=== PATIENT | female | born 1975 | race Caucasian/White ===

== ENCOUNTER → 2017-11-26 10:09 | Outpatient (CLI) | payer OTHER, SELFPAY ==
[2017-11-26 11:46] LABS: TSH w/ Reflex to FT4 0.97 uIU/mL (0.47-4.68)
== END ==
PROVIDERS: Family Provider Family Medicine; PCP Family Medicine; Visit Provider Family Medicine
DX: E03.9 Hypothyroidism, unspecified (principal)
CPT/HCPCS: 36415; 84443

== ENCOUNTER → 2018-06-09 14:20 | Outpatient (CLI) | payer OTHER, MEDICAID, SELFPAY ==
[2018-06-09 15:30] LABS: Free T3, Triiodothyronine Free 2.93 pg/mL (2.77-5.27); Free T4, Direct Thyroxine 0.57 ng/dL (0.78-2.19)
== END ==
PROVIDERS: PCP Family Medicine; Visit Provider Family Medicine
DX: E03.9 Hypothyroidism, unspecified (principal)
CPT/HCPCS: 36415; 84439; 84443; 84481

== ENCOUNTER → 2018-08-08 15:53 | Outpatient (CLI) | payer OTHER, MEDICAID, SELFPAY ==
[2018-08-08 17:27] LABS: TSH w/ Reflex to FT4 1.52 uIU/mL (0.47-4.68)
[2018-08-08 17:44] LABS: HIV 1 and 2 Antibody NEGATIVE (NEGATIVE); Hep C Virus Ab w/Reflex Quant NEGATIVE s/c (NEGATIVE)
[2018-08-11 14:30] LABS: RPR Screen Nonreactive (Nonreactive)
[2018-08-12 16:21] LABS: Hepatitis B Surf Ab Qualitativ Nonreactive (Nonreactive)
== END ==
PROVIDERS: PCP Family Medicine; Visit Provider Specialist
DX: Z20.2 Contact with and (suspected) exposure to infections with a predominantly sexual mode of transmission (principal); E03.9 Hypothyroidism, unspecified
CPT/HCPCS: 36415; 84443; 86592; 86703; 86706; 86803

== ENCOUNTER → 2018-09-02 12:13 | Outpatient (CLI) | payer OTHER, MEDICAID, SELFPAY ==
--- NOTE | 2018-09-02 12:14 | DI.MG.S_ITS ---
BILATERAL DIGITAL SCREENING MAMMOGRAM 3D/2D WITH CAD: 09/02/2018 CLINICAL: Routine screening. Family history of breast cancer. Comparison is made to exams dated: 12/29/2015 mammogram, 07/05/2015 mammogram, 12/28/2014 mammogram, and 06/18/2014 mammogram - [facility]. The tissue of both breasts is extremely dense, which lowers the sensitivity of mammography. Current study was also evaluated with a Computer Aided Detection (CAD) system. There are benign calcifications in both breasts. No significant masses, calcifications, or other findings are seen in either breast. There has been no significant interval change. IMPRESSION: There is no mammographic evidence of malignancy. A 1 year screening mammogram is recommended. This exam was interpreted at Station ID: [id number]. NOTE: For mammograms, a report in lay terms will be sent to the patient. Approximately 15% of breast malignancies will not be visualized mammographically. In the management of a palpable breast mass, a negative mammogram must not discourage biopsy of a clinically suspicious lesion. Electronically Signed By: Magdiel gordon/michele:09/02/2018 17:34:12 copy to: César Mercado letter sent: Normal Exam ACR BI-RADS Category 2: Benign Finding(s) [id number]
== END ==
PROVIDERS: PCP Family Medicine; Visit Provider Specialist
DX: Z12.31 Encounter for screening mammogram for malignant neoplasm of breast (principal); Z80.3 Family history of malignant neoplasm of breast
CPT/HCPCS: 77063; 77067

== ENCOUNTER 2018-11-27 09:45 | Outpatient (RCR) | payer OTHER, MEDICAID, SELFPAY ==
--- NOTE | 2018-08-21 14:30 | PT.OIE ---
Current Diagnoses Fibromyalgia (08/21/18) Past Medical History (Last Reviewed 06/12/18 @ 11:17 by Jackie Yancey LPN) Acne (Chronic) Anemia (Chronic) Anxiety (Chronic) Depression (Chronic) Fibromyalgia (Chronic ~2004) GERD (gastroesophageal reflux disease) (Chronic) History of frequent headaches (Chronic) Hypothyroidism (Chronic ~2004) IBS (irritable bowel syndrome) (Chronic) IUD (intrauterine device) in place (Chronic) Kidney stones (Chronic) Migraines (Chronic ~11/12/14) PTSD (post-traumatic stress disorder) (Chronic) Restless leg syndrome (Chronic) Seizures (Chronic ~1998) Tinnitus (Chronic) Chickenpox (Resolved) Halo nevus (Resolved ~1989) Plantar warts (Resolved) Vertigo (Resolved ~1997) Past Surgical History (Last Reviewed 06/12/18 @ 11:17 by Jackie Yancey LPN) History of fracture of nose (Acute ~1993) Vacuum extractor delivery, delivered (Resolved) Anesthesia (Inactive) History of lithotripsy (~2006) Provider Visit Care Team Role Provider Type César Mercado MD Attending Provider Physician Primary Care Provider Specialty: Family Practice Address: [address] [place] [address] Email: [email or web address] Physical Therapy Initial Evaluation PT-OP-A Visit Information Start: 08/21/18 15:21 Freq: Status: Active Protocol: Document 08/21/18 14:30 RCC (Rec: 08/21/18 15:51 RCC [email or web address]) Out-Patient Physical Therapy Visit Information Visit Information Visit Type Initial Evaluation Visit Start Time 14:30 Visit Stop Time 15:10 Total Visit Minutes 40 Visit Number 1 Number of HELICOPTER REPAIRER Visits 0 Evaluation Information Evaluation Date 08/21/18 Precautions Precautions Fibromyalgia PT-OP-B Current Condition Start: 08/21/18 15:21 Freq: Status: Active Protocol: Document 08/21/18 14:30 RCC (Rec: 08/21/18 15:51 RCC [email or web address]) Current Condition History of Current Condition Onset Date years of chronic pain Current Complaints CAMACHO, neck and low back pain History of Current Condition Pt is a 42 y/o female presenting to physical therapy with a c/o bilateral neck and low back pain as well as a h/ o chronic CAMACHO. She received Botox injections every 3 mos, most recently got them on Saturday08/19/18 with now improved relief of CAMACHO. She has a h/o of a brain injury in 1997, and is now seeing someone for psychological help . She does OMM with Dr. Moore 1x/mo (after getting good improvements over time). 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 Pt notes that she is doing somewhat better after Botox injections, but does admit her pain comes and goes due to her fibromyalgia. She would like to be able to do Qigong again to assist with coordination and relaxation, which she has not had time to do due to home stressors and pain. Treatment Goals Patient/Caregiver Goals return to Qigong, improve posture and decrease pain Personal Factors Other Personal Factors That May Effect h/o brain injury 1997, Therapy/Recovery fibromyalgia, depression, memory loss, back and neck pain (chronic), anxiety, hypothyroidism PT-OP-C Subjective Start: 08/21/18 15:21 Freq: Status: Active Protocol: Document 08/21/18 14:30 RCC (Rec: 08/21/18 15:51 RCC [email or web address]) OP-PT Pain Assessment Location bilateral neck and back Intensity 8 Scale Used Numeric (1 - 10) Frequency Frequent Pain Aggravating Factors Activity Standing Sitting Anxiety Pain Alleviating Factors Position Massage PT-OP-F Manual Assessment Start: 08/21/18 15:21 Freq: Status: Active Protocol: Document 08/21/18 14:30 RCC (Rec: 08/21/18 15:51 RCC [email or web address]) Manual Assessments Soft Tissue Assessment Soft Tissue Mobility Assessment Moderate tension: bilateral lumbosacral paraspinals, QL, lower trapezius, levator and upper trapezius, L scalenes and suboccipitals Joint Mobility Assessment Joint Mobility Assessment C3 hypomobility bilaterally, R >L PT-OP-J Posture/Palpation/Skin Start: 08/21/18 15:21 Freq: Status: Active Protocol: Document 08/21/18 14:30 RCC (Rec: 08/21/18 15:51 RCC [email or web address]) Posture Evaluation Comments Posture Comments severe forward head, moderate rounded shoulders, increased thoracic kyphosis in sitting PT-OP-K Range of Motion Start: 08/21/18 15:21 Freq: Status: Active Protocol: Document 08/21/18 14:30 RCC (Rec: 08/21/18 15:51 RCC [email or web address]) Cervical Spine Range of Motion Cervical Spine Active Degrees Testing Position Sitting Flexion 54 Extension 35 Rotation Left 65 Rotation Right 75 Lateral Flexion Left 25 Lateral Flexion Right 30 ROM Limitations Soft Tissue Tightness Muscle Tone Pain Lumbar Spine Range of Motion Lumbar Spine Active Percentage Comments WNL PT-OP-L Special Tests Start: 08/21/18 15:21 Freq: Status: Active Protocol: Document 08/21/18 14:30 RCC (Rec: 08/21/18 15:51 RCC [email or web address]) Special Tests Cervical Spine Special Tests Slump Test Results increases tension Spurling's Test Test Results positive B Lumbar Spine Special Tests Straight Leg Raise Test Results negative B PT-OP-M Strength Start: 08/21/18 15:21 Freq: Status: Active Protocol: Document 08/21/18 14:30 RCC (Rec: 08/21/18 15:51 RCC [email or web address]) Cervical Spine Strength Cervical Spine Manual Muscle Testing Comments pt able to hold chin tuck with head lift for 8 sec before losing chin tuck position Shoulder Strength Shoulder Manual Muscle Testing Right Flexion 4 Good Abduction (C5) 4+ Good+ External Rotation 3+ Fair+ Internal Rotation 5 Normal Left Flexion 5 Normal Abduction (C5) 4 Good External Rotation 4+ Good+ Internal Rotation 5 Normal Elbow/Forearm Strength Elbow and Forearm Manual Muscle Testing Right Flexion (C6) 5 Normal Extension (C7) 4 Good Left Flexion (C6) 5 Normal Extension (C7) 5 Normal PT-OP-Q Treatments Start: 08/21/18 15:21 Freq: Status: Active Protocol: Document 08/21/18 14:30 RCC (Rec: 08/21/18 15:51 RCC [email or web address]) Therapeutic Exercises Supine Exercises Transverse abdominal activation Side bilateral Reps/Minutes 3x5 sec hold Comments with deep breathing chin tuck Side bilateral Reps/Minutes 3x5 sec hold Comments gentle PT-OP-T Assessment and Plan Start: 08/21/18 15:21 Freq: Status: Active Protocol: Document 08/21/18 14:30 RCC (Rec: 08/21/18 15:51 RCC [email or web address]) Physical Therapy Assessment Rehab Potential Rehabilitation Potential Fair Evaluation Complexity Number of Personal Factors/Comorbidities 3 or More Number of Body Systems Impaired 4 or More Clinical Presentation at Evaluation Evolving Impairments Impairments Activity Tolerance Functional Activities Pain Posture ROM Soft Tissue Mobility Strength Tone Goals cervical spine ROM Impairment decreased cervical spine ROM Snf Goal (LTG) cervical spine ROM flexion to 60 degrees extension to 50 degrees sidebending to 40 degrees bilaterally rotation to 80 degrees bilaterally posture Impairment sitting posture Snf Goal (LTG) Pt will demonstrate proper seated posture with neutral head, shoulders and slight to no thoracic kyphosis for 5 min without cuing prior to d/c to decrease overall cervicothoracic muscle tone. LTG Duration 10 weeks UE weakness Impairment UE weakness Short Term Goal (STG) Pt will demonstrate bilateral shoulder and elbow strength of 4+/5 or greater with all major muscle groups. STG Duration 5 weeks Snf Goal (LTG) Pt will demonstrate bilateral shoulder and elbow strength of 5/5 or greater with all major muscle groups. LTG Duration 10 weeks Recreational activities Impairment unable to participate in recreational activities Short Term Goal (STG) pt will tolerate return to Qigong for 15 min, 3 times per week with pain rated 6/10 or less. STG Duration 5 weeks Slitter Scorer Cut Off Operator Goal (LTG) pt will tolerate return to Qigoan for at least 30 min, 3 times per week with pain rated 4/10 or less prior to d/c. LTG Duration 10 weeks Assessment Summary Assessment Pt presents with multiple areas of pain, with highest degree in the cervical and lumbar spine. Pt demonstrates impaired sitting posture likely contributing to increased muscle tone of the cervicothoracic spine and likely one contributing factor to her headaches. Pt with limited cervical spine ROM as well as bilateral shoulder weaknesses, which also appear to be contributing factors to her increase in pain and difficulty with activity tolerance. Overall, pt would benefit from skilled physical therapy intervention to improve the aforementioned impairments, as well as modalities for pain. Pt also appears to be a good candidate for aquatic therapy to progress her core and postural musculature and stability, and improve overall activity tolerance. Physical Therapy Plan Frequency and Duration Frequency of Treatment 2x/Week Duration of Treatment 10 weeks Plan of Care Start Date 08/21/18 Plan of Care End Date 10/30/18 Therapeutic Interventions Therapeutic Interventions Aquatic Therapy Balance Training Coordination Training Gait Training Home Exercise Program Manual Therapy Neuromuscular Re-education Orthotic/Prosthetic Management Patient/Caregiver Education Self-Care/Home Management Soft Tissue Mobilization Taping Therapeutic Activities Therapeutic Exercises Modalities Cold Pack/Ice Massage Electric Stimulation Hot Packs Ultrasound Next Visit Focus/Plan Next Note Type Treatment Note Next Visit Plan sitting and standing posture, advance core stability in supine/hooklying, scapular retraction; soft tissue for tone management
--- NOTE | 2018-08-27 16:00 | PT.OTN ---
Current Diagnoses Fibromyalgia (08/27/18) Physical Therapy Treatment Note PT-OP-A Visit Information Start: 08/21/18 15:21 Freq: Status: Active Protocol: Document 08/27/18 10:35 BS (Rec: 08/27/18 12:08 BS [id number]) Out-Patient Physical Therapy Visit Information Visit Information Visit Type Treatment Note Visit Start Time 09:45 Visit Stop Time 10:30 Total Visit Minutes 45 Visit Number 2 Number of PRODUCT SAFETY MANAGER Visits 0 Evaluation Information Evaluation Date 08/21/18 Precautions Precautions Fibromyalgia PT-OP-B Current Condition Start: 08/21/18 15:21 Freq: Status: Active Protocol: Document 08/21/18 14:30 RCC (Rec: 08/21/18 15:51 RCC [email or web address]) Current Condition History of Current Condition Onset Date years of chronic pain Current Complaints CAMACHO, neck and low back pain History of Current Condition Pt is a 42 y/o female presenting to physical therapy with a c/o bilateral neck and low back pain as well as a h/ o chronic CAMACHO. She received Botox injections every 3 mos, most recently got them on Saturday08/19/18 with now improved relief of CAMACHO. She has a h/o of a brain injury in 1997, and is now seeing someone for psychological help . She does OMM with Dr. Moore 1x/mo (after getting good improvements over time). 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 Pt notes that she is doing somewhat better after Botox injections, but does admit her pain comes and goes due to her fibromyalgia. She would like to be able to do Qigong again to assist with coordination and relaxation, which she has not had time to do due to home stressors and pain. Treatment Goals Patient/Caregiver Goals return to Qigong, improve posture and decrease pain Personal Factors Other Personal Factors That May Effect h/o brain injury 1997, Therapy/Recovery fibromyalgia, depression, memory loss, back and neck pain (chronic), anxiety, hypothyroidism PT-OP-C Subjective Start: 08/21/18 15:21 Freq: Status: Active Protocol: Document 08/27/18 10:35 BS (Rec: 08/27/18 12:08 BS [id number]) OP-PT Subjective Patient Comments Patient Comments Pt states that her neck and back were sore following IE last week. She states the chin tucks make her neck ache but thinks they help over time as it is an exercise she has done in the past. 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 PT-OP-F Manual Assessment Start: 08/21/18 15:21 Freq: Status: Active Protocol: Document 08/21/18 14:30 RCC (Rec: 08/21/18 15:51 RCC [email or web address]) Manual Assessments Soft Tissue Assessment Soft Tissue Mobility Assessment Moderate tension: bilateral lumbosacral paraspinals, QL, lower trapezius, levator and upper trapezius, L scalenes and suboccipitals Joint Mobility Assessment Joint Mobility Assessment C3 hypomobility bilaterally, R >L PT-OP-J Posture/Palpation/Skin Start: 08/21/18 15:21 Freq: Status: Active Protocol: Document 08/21/18 14:30 RCC (Rec: 08/21/18 15:51 RCC [email or web address]) Posture Evaluation Comments Posture Comments severe forward head, moderate rounded shoulders, increased thoracic kyphosis in sitting PT-OP-K Range of Motion Start: 08/21/18 15:21 Freq: Status: Active Protocol: Document 08/21/18 14:30 RCC (Rec: 08/21/18 15:51 RCC [email or web address]) Cervical Spine Range of Motion Cervical Spine Active Degrees Testing Position Sitting Flexion 54 Extension 35 Rotation Left 65 Rotation Right 75 Lateral Flexion Left 25 Lateral Flexion Right 30 ROM Limitations Soft Tissue Tightness Muscle Tone Pain Lumbar Spine Range of Motion Lumbar Spine Active Percentage Comments WNL PT-OP-L Special Tests Start: 08/21/18 15:21 Freq: Status: Active Protocol: Document 08/21/18 14:30 RCC (Rec: 08/21/18 15:51 RCC [email or web address]) Special Tests Cervical Spine Special Tests Slump Test Results increases tension Spurling's Test Test Results positive B Lumbar Spine Special Tests Straight Leg Raise Test Results negative B PT-OP-M Strength Start: 08/21/18 15:21 Freq: Status: Active Protocol: Document 08/21/18 14:30 RCC (Rec: 08/21/18 15:51 RCC [email or web address]) Cervical Spine Strength Cervical Spine Manual Muscle Testing Comments pt able to hold chin tuck with head lift for 8 sec before losing chin tuck position Shoulder Strength Shoulder Manual Muscle Testing Right Flexion 4 Good Abduction (C5) 4+ Good+ External Rotation 3+ Fair+ Internal Rotation 5 Normal Left Flexion 5 Normal Abduction (C5) 4 Good External Rotation 4+ Good+ Internal Rotation 5 Normal Elbow/Forearm Strength Elbow and Forearm Manual Muscle Testing Right Flexion (C6) 5 Normal Extension (C7) 4 Good Left Flexion (C6) 5 Normal Extension (C7) 5 Normal PT-OP-Q Treatments Start: 08/21/18 15:21 Freq: Status: Active Protocol: Document 08/27/18 10:35 BS (Rec: 08/27/18 12:08 BS [id number]) Therapeutic Exercises Supine Exercises 2 Supine Exercise Name Bridges Reps/Minutes Hooklying Comments VCs for TA bracing 1 Supine Exercise Name Hip Roll in/Out Equipment Used #2 band, ball between knees for adduction Reps/Minutes x12 each Comments VCs TA bracing Transverse abdominal activation Side bilateral Reps/Minutes 10 x 3-5 sec hold Comments VCs for breathing Sitting Exercises 3 Sitting Exercise Name Upper Trap Stretch Side bilateral Reps/Minutes 3x30 each 2 Sitting Exercise Name Scapular Retraction Side bilateral Reps/Minutes x10 Comments TCs for squeeze between shoulder blades 1 Sitting Exercise Name Chin Tucks Reps/Minutes x12 Manual Therapy Treatment Soft Tissue Mobilization 2 Body Location Cervical Paraspinals Mobilization Type Myofascial Release Intensity/Depth Moderate Body Position Hooklying Comments also in sitting. Pt tolerated better in sitting. 1 Body Location Suboccipitals, Upper Traps Mobilization Type Myofascial Release Rolling Intensity/Depth Superficial Body Position Hooklying Comments L side more tender than R Manual Techniques 1 Type PROM Cervical Rotation Body Position Hooklying Reps/Duration slow, pain free range Comments limited rotation due to increased cervical pain PT-OP-T Assessment and Plan Start: 08/21/18 15:21 Freq: Status: Active Protocol: Document 08/27/18 10:35 BS (Rec: 08/27/18 12:08 BS [id number]) Physical Therapy Assessment Assessment Summary Assessment Pt presented to therapy with increased low back and cervical pain following IE and recent stressors including loss of job. Began light core stabilization exercises, postural mm strengthening, and manual therapy to cervical region to address muscle hypertonicity. Discussed aquatic therapy with pt and she will be placed on the waitlist. Physical Therapy Plan Next Visit Focus/Plan Next Note Type Treatment Note Next Visit Plan Assess response to core stability exercises and manual therapy. Continue with manual therapy as tolerated to address B upper trap and suboccipital tightness.
--- NOTE | 2018-09-02 15:01 | PT.OTN ---
Current Diagnoses Fibromyalgia (09/02/18) Physical Therapy Treatment Note PT-OP-A Visit Information Start: 08/21/18 15:21 Freq: Status: Active Protocol: Document 09/02/18 13:46 SAK (Rec: 09/02/18 14:34 SAK [id number]) Out-Patient Physical Therapy Visit Information Visit Information Visit Type Treatment Note Visit Start Time 13:45 Visit Stop Time 14:30 Total Visit Minutes 55 Visit Number 3 Number of ASSISTANT FAMILY TEACHER Visits 0 Evaluation Information Evaluation Date 08/21/18 Precautions Precautions Fibromyalgia PT-OP-B Current Condition Start: 08/21/18 15:21 Freq: Status: Active Protocol: Document 08/21/18 14:30 RCC (Rec: 08/21/18 15:51 RCC [email or web address]) Current Condition History of Current Condition Onset Date years of chronic pain Current Complaints CAMACHO, neck and low back pain History of Current Condition Pt is a 42 y/o female presenting to physical therapy with a c/o bilateral neck and low back pain as well as a h/ o chronic CAMACHO. She received Botox injections every 3 mos, most recently got them on Saturday08/19/18 with now improved relief of CAMACHO. She has a h/o of a brain injury in 1997, and is now seeing someone for psychological help . She does OMM with Dr. Moore 1x/mo (after getting good improvements over time). 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 Pt notes that she is doing somewhat better after Botox injections, but does admit her pain comes and goes due to her fibromyalgia. She would like to be able to do Qigong again to assist with coordination and relaxation, which she has not had time to do due to home stressors and pain. 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 PT-OP-F Manual Assessment Start: 08/21/18 15:21 Freq: Status: Active Protocol: Document 08/21/18 14:30 RCC (Rec: 08/21/18 15:51 RCC [email or web address]) Manual Assessments Soft Tissue Assessment Soft Tissue Mobility Assessment Moderate tension: bilateral lumbosacral paraspinals, QL, lower trapezius, levator and upper trapezius, L scalenes and suboccipitals Joint Mobility Assessment Joint Mobility Assessment C3 hypomobility bilaterally, R >L PT-OP-J Posture/Palpation/Skin Start: 08/21/18 15:21 Freq: Status: Active Protocol: Document 08/21/18 14:30 RCC (Rec: 08/21/18 15:51 RCC [email or web address]) Posture Evaluation Comments Posture Comments severe forward head, moderate rounded shoulders, increased thoracic kyphosis in sitting PT-OP-K Range of Motion Start: 08/21/18 15:21 Freq: Status: Active Protocol: Document 08/21/18 14:30 RCC (Rec: 08/21/18 15:51 RCC [email or web address]) Cervical Spine Range of Motion Cervical Spine Active Degrees Testing Position Sitting Flexion 54 Extension 35 Rotation Left 65 Rotation Right 75 Lateral Flexion Left 25 Lateral Flexion Right 30 ROM Limitations Soft Tissue Tightness Muscle Tone Pain Lumbar Spine Range of Motion Lumbar Spine Active Percentage Comments WNL PT-OP-L Special Tests Start: 08/21/18 15:21 Freq: Status: Active Protocol: Document 08/21/18 14:30 RCC (Rec: 08/21/18 15:51 RCC [email or web address]) Special Tests Cervical Spine Special Tests Slump Test Results increases tension Spurling's Test Test Results positive B Lumbar Spine Special Tests Straight Leg Raise Test Results negative B PT-OP-M Strength Start: 08/21/18 15:21 Freq: Status: Active Protocol: Document 08/21/18 14:30 RCC (Rec: 08/21/18 15:51 RCC [email or web address]) Cervical Spine Strength Cervical Spine Manual Muscle Testing Comments pt able to hold chin tuck with head lift for 8 sec before losing chin tuck position Shoulder Strength Shoulder Manual Muscle Testing Right Flexion 4 Good Abduction (C5) 4+ Good+ External Rotation 3+ Fair+ Internal Rotation 5 Normal Left Flexion 5 Normal Abduction (C5) 4 Good External Rotation 4+ Good+ Internal Rotation 5 Normal Elbow/Forearm Strength Elbow and Forearm Manual Muscle Testing Right Flexion (C6) 5 Normal Extension (C7) 4 Good Left Flexion (C6) 5 Normal Extension (C7) 5 Normal PT-OP-Q Treatments Start: 08/21/18 15:21 Freq: Status: Active Protocol: Document 09/02/18 13:46 [facility] (Rec: 09/02/18 14:34 [facility] [id number]) Therapeutic Exercises Supine Exercises 2 Supine Exercise Name Bridge; gentle segmental Reps/Minutes Hooklying Comments VCs for TA bracing 1 Supine Exercise Name Hip Roll in/Out Equipment Used #2 band, ball between knees for adduction Reps/Minutes 8x each Comments VCs TA bracing Transverse abdominal activation Side bilateral Reps/Minutes 10 x 3-5 sec hold Comments VCs for breathing chin tuck Side bilateral Reps/Minutes 3x5 sec hold Comments gentle Sitting Exercises 1 Sitting Exercise Name Chin Tucks Reps/Minutes x12 Standing Exercises row, shld ext Resistance L1 TB Reps/Minutes 5x Manual Therapy Treatment Soft Tissue Mobilization 3 Body Location lumbar and thoracic paraspinals Mobilization Type Myofascial Release Rolling Strumming Body Position Prone Comments prone pillow Self-Care/Home Management Treatment Education Patient Education Home Exercise Program Other Education incorporation of deep breathing for muscle relaxation and pain management PT-OP-R Modalities Start: 08/21/18 15:21 Freq: Status: Active Protocol: Document 09/02/18 13:46 [facility] (Rec: 09/02/18 15:01 [facility] [id number]) Hot Pack/Cold Pack Treatment moist heat Patient Position Prone Treatment Duration (minutes) 15 Patient Tolerance Good PT-OP-T Assessment and Plan Start: 08/21/18 15:21 Freq: Status: Active Protocol: Document 09/02/18 13:46 [facility] (Rec: 09/02/18 14:34 [facility] [id number]) Physical Therapy Assessment Goals cervical spine ROM Impairment decreased cervical spine ROM Apparel Cutter Goal (LTG) cervical spine ROM flexion to 60 degrees extension to 50 degrees sidebending to 40 degrees bilaterally rotation to 80 degrees bilaterally posture Impairment sitting posture Penitentiary Goal (LTG) Pt will demonstrate proper seated posture with neutral head, shoulders and slight to no thoracic kyphosis for 5 min without cuing prior to d/c to decrease overall cervicothoracic muscle tone. LTG Duration 10 weeks UE weakness Impairment UE weakness Short Term Goal (STG) Pt will demonstrate bilateral shoulder and elbow strength of 4+/5 or greater with all major muscle groups. STG Duration 5 weeks Apparel Cutter Goal (LTG) Pt will demonstrate bilateral shoulder and elbow strength of 5/5 or greater with all major muscle groups. LTG Duration 10 weeks Recreational activities Impairment unable to participate in recreational activities Short Term Goal (STG) pt will tolerate return to Qigong for 15 min, 3 times per week with pain rated 6/10 or less. STG Duration 5 weeks Penitentiary Goal (LTG) pt will tolerate return to [place] for at least 30 min, 3 times per week with pain rated 4/10 or less prior to d/c. LTG Duration 10 weeks Assessment Summary Assessment increased focus on thoracic and lumbar spine pain today. Issued written HEP. Encouraged gradual increase in activity level. Consider aquatic therapy. Physical Therapy Plan Frequency and Duration Frequency of Treatment 2x/Week Duration of Treatment 10 weeks Plan of Care Start Date 08/21/18 Plan of Care End Date 10/30/18 Therapeutic Interventions Therapeutic Interventions Aquatic Therapy Balance Training Coordination Training Gait Training Home Exercise Program Manual Therapy Neuromuscular Re-education Orthotic/Prosthetic Management Patient/Caregiver Education Self-Care/Home Management Soft Tissue Mobilization Taping Therapeutic Activities Therapeutic Exercises Modalities Cold Pack/Ice Massage Electric Stimulation Hot Packs Ultrasound Next Visit Focus/Plan Next Note Type Treatment Note Next Visit Plan Gentle progression of ther ex with emphasis on neutral postural alignment and core stab. Possible aquatic therapy.
--- NOTE | 2018-09-11 14:14 | PT.OTN ---
Current Diagnoses Fibromyalgia (09/11/18) Physical Therapy Treatment Note PT-OP-A Visit Information Start: 08/21/18 15:21 Freq: Status: Active Protocol: Document 09/11/18 14:02 EA (Rec: 09/11/18 14:14 EA [id number]) Out-Patient Physical Therapy Visit Information Visit Information Visit Type Treatment Note Visit Start Time 10:30 Visit Stop Time 11:25 Total Visit Minutes 55 Visit Number 4 Number of SECURITY INCIDENT RESPONSE ENGINEER Visits 0 PT-OP-B Current Condition Start: 08/21/18 15:21 Freq: Status: Active Protocol: Document 08/21/18 14:30 RCC (Rec: 08/21/18 15:51 RCC [email or web address]) Current Condition History of Current Condition Onset Date years of chronic pain Current Complaints CAMACHO, neck and low back pain History of Current Condition Pt is a 42 y/o female presenting to physical therapy with a c/o bilateral neck and low back pain as well as a h/ o chronic CAMACHO. She received Botox injections every 3 mos, most recently got them on Saturday08/19/18 with now improved relief of CAMACHO. She has a h/o of a brain injury in 1997, and is now seeing someone for psychological help . She does OMM with Dr. Moore 1x/mo (after getting good improvements over time). 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 Pt notes that she is doing somewhat better after Botox injections, but does admit her pain comes and goes due to her fibromyalgia. She would like to be able to do Qigong again to assist with coordination and relaxation, which she has not had time to do due to home stressors and pain. Treatment Goals Patient/Caregiver Goals return to Qigong, improve posture and decrease pain Personal Factors Other Personal Factors That May Effect h/o brain injury 1997, Therapy/Recovery fibromyalgia, depression, memory loss, back and neck pain (chronic), anxiety, hypothyroidism PT-OP-C Subjective Start: 08/21/18 15:21 Freq: Status: Active Protocol: Document 09/11/18 14:02 EA (Rec: 09/11/18 14:14 EA [id number]) OP-PT Subjective Patient Comments Patient Comments Pt reports has to use cold pack at home after last session. She feels her energy level is always low due to life stressors. PT-OP-F Manual Assessment Start: 08/21/18 15:21 Freq: Status: Active Protocol: Document 08/21/18 14:30 RCC (Rec: 08/21/18 15:51 RCC [email or web address]) Manual Assessments Soft Tissue Assessment Soft Tissue Mobility Assessment Moderate tension: bilateral lumbosacral paraspinals, QL, lower trapezius, levator and upper trapezius, L scalenes and suboccipitals Joint Mobility Assessment Joint Mobility Assessment C3 hypomobility bilaterally, R >L PT-OP-J Posture/Palpation/Skin Start: 08/21/18 15:21 Freq: Status: Active Protocol: Document 08/21/18 14:30 RCC (Rec: 08/21/18 15:51 RCC [email or web address]) Posture Evaluation Comments Posture Comments severe forward head, moderate rounded shoulders, increased thoracic kyphosis in sitting PT-OP-K Range of Motion Start: 08/21/18 15:21 Freq: Status: Active Protocol: Document 08/21/18 14:30 RCC (Rec: 08/21/18 15:51 RCC [email or web address]) Cervical Spine Range of Motion Cervical Spine Active Degrees Testing Position Sitting Flexion 54 Extension 35 Rotation Left 65 Rotation Right 75 Lateral Flexion Left 25 Lateral Flexion Right 30 ROM Limitations Soft Tissue Tightness Muscle Tone Pain Lumbar Spine Range of Motion Lumbar Spine Active Percentage Comments WNL PT-OP-L Special Tests Start: 08/21/18 15:21 Freq: Status: Active Protocol: Document 08/21/18 14:30 RCC (Rec: 08/21/18 15:51 RCC [email or web address]) Special Tests Cervical Spine Special Tests Slump Test Results increases tension Spurling's Test Test Results positive B Lumbar Spine Special Tests Straight Leg Raise Test Results negative B PT-OP-M Strength Start: 08/21/18 15:21 Freq: Status: Active Protocol: Document 08/21/18 14:30 RCC (Rec: 08/21/18 15:51 RCC [email or web address]) Cervical Spine Strength Cervical Spine Manual Muscle Testing Comments pt able to hold chin tuck with head lift for 8 sec before losing chin tuck position Shoulder Strength Shoulder Manual Muscle Testing Right Flexion 4 Good Abduction (C5) 4+ Good+ External Rotation 3+ Fair+ Internal Rotation 5 Normal Left Flexion 5 Normal Abduction (C5) 4 Good External Rotation 4+ Good+ Internal Rotation 5 Normal Elbow/Forearm Strength Elbow and Forearm Manual Muscle Testing Right Flexion (C6) 5 Normal Extension (C7) 4 Good Left Flexion (C6) 5 Normal Extension (C7) 5 Normal PT-OP-Q Treatments Start: 08/21/18 15:21 Freq: Status: Active Protocol: Document 09/11/18 14:02 EA (Rec: 09/11/18 14:14 EA [id number]) Cardio Equipment Recumbent Stepper (Sci-Fit) Duration (Minutes) 5 Resistance 2 Seat Position 13 Other warm up Therapeutic Exercises Supine Exercises 2 Supine Exercise Name Bridge; gentle segmental Reps/Minutes Hooklying Comments VCs for TA bracing 1 Supine Exercise Name Hip Roll in/Out Equipment Used #2 band, ball between knees for adduction Reps/Minutes 8x each Comments VCs TA bracing Transverse abdominal activation Side bilateral Reps/Minutes 10 x 3-5 sec hold Comments VCs for breathing chin tuck Supine Exercise Name SKTC, BKTC Side bilateral Reps/Minutes x 15SH x 2 reps each Prone Exercises 1 Prone Exercise Name T-ball prone T and Y Reps/Minutes x 15 reps Sitting Exercises 1 Sitting Exercise Name Chin Tucks Reps/Minutes x12 Standing Exercises row, shld ext Resistance L1 TB Reps/Minutes 10 x Manual Therapy Treatment Soft Tissue Mobilization 3 Body Location lumbar and thoracic paraspinals Mobilization Type Myofascial Release Rolling Strumming Body Position Prone Comments prone pillow 2 Body Location Cervical Paraspinals Mobilization Type Myofascial Release Intensity/Depth Superficial Body Position Prone PT-OP-R Modalities Start: 08/21/18 15:21 Freq: Status: Active Protocol: Document 09/11/18 14:02 EA (Rec: 09/11/18 14:14 EA [id number]) Hot Pack/Cold Pack Treatment moist heat Location Cervical, thoraci and lumbar Patient Position Prone Treatment Duration (minutes) 15 Patient Tolerance Good PT-OP-T Assessment and Plan Start: 08/21/18 15:21 Freq: Status: Active Protocol: Document 09/11/18 14:02 EA (Rec: 09/11/18 14:14 EA [id number]) Physical Therapy Assessment Assessment Summary Assessment Tolerated treatment well. Re- assess previous session. progress as tolerated. Physical Therapy Plan Next Visit Focus/Plan Next Note Type Treatment Note Next Visit Plan Gentle progression of ther ex with emphasis on neutral postural alignment and core stab. Possible aquatic therapy.
--- NOTE | 2018-09-15 17:41 | PT.OTN ---
Current Diagnoses Fibromyalgia (09/15/18) Physical Therapy Treatment Note PT-OP-A Visit Information Start: 08/21/18 15:21 Freq: Status: Active Protocol: Document 09/15/18 17:31 SAK (Rec: 09/15/18 17:41 SAK [id number]) Out-Patient Physical Therapy Visit Information Visit Information Visit Type Treatment Note Visit Start Time 10:15 Visit Stop Time 11:00 Total Visit Minutes 45 Visit Number 5 Number of DRAWING PRESS OPERATOR Visits 0 Evaluation Information Evaluation Date 08/21/18 PT-OP-B Current Condition Start: 08/21/18 15:21 Freq: Status: Active Protocol: Document 08/21/18 14:30 RCC (Rec: 08/21/18 15:51 RCC [email or web address]) Current Condition History of Current Condition Onset Date years of chronic pain Current Complaints CAMACHO, neck and low back pain History of Current Condition Pt is a 42 y/o female presenting to physical therapy with a c/o bilateral neck and low back pain as well as a h/ o chronic CAMACHO. She received Botox injections every 3 mos, most recently got them on Saturday08/19/18 with now improved relief of CAMACHO. She has a h/o of a brain injury in 1997, and is now seeing someone for psychological help . She does OMM with Dr. Moore 1x/mo (after getting good improvements over time). 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 Pt notes that she is doing somewhat better after Botox injections, but does admit her pain comes and goes due to her fibromyalgia. She would like to be able to do Qigong again to assist with coordination and relaxation, which she has not had time to do due to home stressors and pain. Treatment Goals Patient/Caregiver Goals return to Qigong, improve posture and decrease pain Personal Factors Other Personal Factors That May Effect h/o brain injury 1997, Therapy/Recovery fibromyalgia, depression, memory loss, back and neck pain (chronic), anxiety, hypothyroidism PT-OP-C Subjective Start: 08/21/18 15:21 Freq: Status: Active Protocol: Document 09/15/18 17:31 SAK (Rec: 09/15/18 17:41 SAK [id number]) OP-PT Subjective Patient Comments Patient Comments Patient reports uses ice and heat at home. Is looking forward to trying aquatic therapy. PT-OP-F Manual Assessment Start: 08/21/18 15:21 Freq: Status: Active Protocol: Document 08/21/18 14:30 RCC (Rec: 08/21/18 15:51 RCC [email or web address]) Manual Assessments Soft Tissue Assessment Soft Tissue Mobility Assessment Moderate tension: bilateral lumbosacral paraspinals, QL, lower trapezius, levator and upper trapezius, L scalenes and suboccipitals Joint Mobility Assessment Joint Mobility Assessment C3 hypomobility bilaterally, R >L PT-OP-J Posture/Palpation/Skin Start: 08/21/18 15:21 Freq: Status: Active Protocol: Document 08/21/18 14:30 RCC (Rec: 08/21/18 15:51 RCC [email or web address]) Posture Evaluation Comments Posture Comments severe forward head, moderate rounded shoulders, increased thoracic kyphosis in sitting PT-OP-K Range of Motion Start: 08/21/18 15:21 Freq: Status: Active Protocol: Document 08/21/18 14:30 RCC (Rec: 08/21/18 15:51 RCC [email or web address]) Cervical Spine Range of Motion Cervical Spine Active Degrees Testing Position Sitting Flexion 54 Extension 35 Rotation Left 65 Rotation Right 75 Lateral Flexion Left 25 Lateral Flexion Right 30 ROM Limitations Soft Tissue Tightness Muscle Tone Pain Lumbar Spine Range of Motion Lumbar Spine Active Percentage Comments WNL PT-OP-L Special Tests Start: 08/21/18 15:21 Freq: Status: Active Protocol: Document 08/21/18 14:30 RCC (Rec: 08/21/18 15:51 RCC [email or web address]) Special Tests Cervical Spine Special Tests Slump Test Results increases tension Spurling's Test Test Results positive B Lumbar Spine Special Tests Straight Leg Raise Test Results negative B PT-OP-M Strength Start: 08/21/18 15:21 Freq: Status: Active Protocol: Document 08/21/18 14:30 RCC (Rec: 08/21/18 15:51 RCC [email or web address]) Cervical Spine Strength Cervical Spine Manual Muscle Testing Comments pt able to hold chin tuck with head lift for 8 sec before losing chin tuck position Shoulder Strength Shoulder Manual Muscle Testing Right Flexion 4 Good Abduction (C5) 4+ Good+ External Rotation 3+ Fair+ Internal Rotation 5 Normal Left Flexion 5 Normal Abduction (C5) 4 Good External Rotation 4+ Good+ Internal Rotation 5 Normal Elbow/Forearm Strength Elbow and Forearm Manual Muscle Testing Right Flexion (C6) 5 Normal Extension (C7) 4 Good Left Flexion (C6) 5 Normal Extension (C7) 5 Normal PT-OP-Q Treatments Start: 08/21/18 15:21 Freq: Status: Active Protocol: Document 09/11/18 14:02 EA (Rec: 09/11/18 14:14 EA [id number]) Cardio Equipment Recumbent Stepper (Sci-Fit) Duration (Minutes) 5 Resistance 2 Seat Position 13 Other warm up Therapeutic Exercises Supine Exercises 2 Supine Exercise Name Bridge; gentle segmental Reps/Minutes Hooklying Comments VCs for TA bracing 1 Supine Exercise Name Hip Roll in/Out Equipment Used #2 band, ball between knees for adduction Reps/Minutes 8x each Comments VCs TA bracing Transverse abdominal activation Side bilateral Reps/Minutes 10 x 3-5 sec hold Comments VCs for breathing chin tuck Supine Exercise Name SKTC, BKTC Side bilateral Reps/Minutes x 15SH x 2 reps each Prone Exercises 1 Prone Exercise Name T-ball prone T and Y Reps/Minutes x 15 reps Sitting Exercises 1 Sitting Exercise Name Chin Tucks Reps/Minutes x12 Standing Exercises row, shld ext Resistance L1 TB Reps/Minutes 10 x Manual Therapy Treatment Soft Tissue Mobilization 3 Body Location lumbar and thoracic paraspinals Mobilization Type Myofascial Release Rolling Strumming Body Position Prone Comments prone pillow 2 Body Location Cervical Paraspinals Mobilization Type Myofascial Release Intensity/Depth Superficial Body Position Prone PT-OP-R Modalities Start: 08/21/18 15:21 Freq: Status: Active Protocol: Document 09/11/18 14:02 EA (Rec: 09/11/18 14:14 EA [id number]) Hot Pack/Cold Pack Treatment moist heat Location Cervical, thoraci and lumbar Patient Position Prone Treatment Duration (minutes) 15 Patient Tolerance Good PT-OP-S Aquatic Treatment Start: 08/21/18 15:21 Freq: Status: Active Protocol: Document 09/15/18 17:31 SAK (Rec: 09/15/18 17:41 SAK [id number]) Aquatics Treatment Water Walking fwd,bck, july Water Level Chest Level Comments postural cues Lower Extremity Exercises hip circles Body Position Standing Water Level Chest Level Lower Extremity Stretches DKTC, SKTC Body Position Standing Water Level [place] Equipment wall Upper Extremity Exercises shoulder hor ab/ad, flex/ext Details fredi and unil Body Position Standing Water Level Chest Level Comments emphasis on core stabilization Spinal Exercises deep water hang Body Position Standing Water Level [place] Equipment wall Reps/Duration 3x 2 min Comments with deep breathing [place] Activities [place] Activities Bicycle Cross Country Running Comments slow, mod verbal and manual cues for postural alignment PT-OP-T Assessment and Plan Start: 08/21/18 15:21 Freq: Status: Active Protocol: Document 09/15/18 17:31 [facility] (Rec: 09/15/18 17:41 [facility] [id number]) Physical Therapy Assessment Goals cervical spine ROM Impairment decreased cervical spine ROM [facility] Goal (LTG) cervical spine ROM flexion to 60 degrees extension to 50 degrees sidebending to 40 degrees bilaterally rotation to 80 degrees bilaterally posture Impairment sitting posture [facility] Goal (LTG) Pt will demonstrate proper seated posture with neutral head, shoulders and slight to no thoracic kyphosis for 5 min without cuing prior to d/c to decrease overall cervicothoracic muscle tone. LTG Duration 10 weeks UE weakness Impairment UE weakness Short Term Goal (STG) Pt will demonstrate bilateral shoulder and elbow strength of 4+/5 or greater with all major muscle groups. STG Duration 5 weeks [facility] Goal (LTG) Pt will demonstrate bilateral shoulder and elbow strength of 5/5 or greater with all major muscle groups. LTG Duration 10 weeks Recreational activities Impairment unable to participate in recreational activities Short Term Goal (STG) pt will tolerate return to [facility] for 15 min, 3 times per week with pain rated 6/10 or less. STG Duration 5 weeks Unloader Goal (LTG) pt will tolerate return to [facility] for at least 30 min, 3 times per week with pain rated 4/10 or less prior to d/c. LTG Duration 10 weeks Assessment Summary Assessment Moderate verbal and manual cues for postural alignment and core stabilization with all exercises. Appeared to have good tolerance for gentle aquatic exercises today, though at end reported feeling that she would probably be sore. Patient encouraged to take warm shower, drink water, eat well after PT. Physical Therapy Plan Frequency and Duration Frequency of Treatment 2x/Week Duration of Treatment 10 weeks Plan of Care Start Date 08/21/18 Plan of Care End Date 10/30/18 Therapeutic Interventions Therapeutic Interventions Aquatic Therapy Balance Training Coordination Training Gait Training Home Exercise Program Manual Therapy Neuromuscular Re-education Orthotic/Prosthetic Management Patient/Caregiver Education Self-Care/Home Management Soft Tissue Mobilization Taping Therapeutic Activities Therapeutic Exercises Modalities Cold Pack/Ice Massage Electric Stimulation Hot Packs Ultrasound Next Visit Focus/Plan Next Note Type Treatment Note Next Visit Plan Evaluate response to today's aquatic therapy session and modify as indicated. Possible trial manual aquatic therapy techniques.
--- NOTE | 2018-09-19 13:45 | PT.OTN ---
Current Diagnoses Fibromyalgia (09/19/18) Physical Therapy Treatment Note PT-OP-A Visit Information Start: 08/21/18 15:21 Freq: Status: Active Protocol: Document 09/19/18 13:45 RCC (Rec: 09/19/18 15:01 RCC [email or web address]) Out-Patient Physical Therapy Visit Information Visit Information Visit Type Treatment Note Visit Start Time 13:45 Visit Stop Time 14:35 Total Visit Minutes 50 Visit Number 6 Number of REVIEW ENGINEER Visits 0 Evaluation Information Evaluation Date 08/21/18 Precautions Precautions Fibromyalgia PT-OP-B Current Condition Start: 08/21/18 15:21 Freq: Status: Active Protocol: Document 08/21/18 14:30 RCC (Rec: 08/21/18 15:51 RCC [email or web address]) Current Condition History of Current Condition Onset Date years of chronic pain Current Complaints CAMACHO, neck and low back pain History of Current Condition Pt is a 42 y/o female presenting to physical therapy with a c/o bilateral neck and low back pain as well as a h/ o chronic CAMACHO. She received Botox injections every 3 mos, most recently got them on Saturday08/19/18 with now improved relief of CAMACHO. She has a h/o of a brain injury in 1997, and is now seeing someone for psychological help . She does OMM with Dr. Moore 1x/mo (after getting good improvements over time). 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 Pt notes that she is doing somewhat better after Botox injections, but does admit her pain comes and goes due to her fibromyalgia. She would like to be able to do Qigong again to assist with coordination and relaxation, which she has not had time to do due to home stressors and pain. Treatment Goals Patient/Caregiver Goals return to Qigong, improve posture and decrease pain Personal Factors Other Personal Factors That May Effect h/o brain injury 1997, Therapy/Recovery fibromyalgia, depression, memory loss, back and neck pain (chronic), anxiety, hypothyroidism PT-OP-C Subjective Start: 08/21/18 15:21 Freq: Status: Active Protocol: Document 09/19/18 13:45 RCC (Rec: 09/19/18 15:01 RCC [email or web address]) OP-PT Subjective Patient Comments Patient Comments Pt states she was sore for 2 days after her aquatic session . She states she is not sleeping well but may be more due to anxiety (she is seeking help with this) vs pain. PT-OP-F Manual Assessment Start: 08/21/18 15:21 Freq: Status: Active Protocol: Document 09/19/18 13:45 RCC (Rec: 09/19/18 15:01 RCC [email or web address]) Manual Assessments Soft Tissue Assessment Soft Tissue Mobility Assessment R>L moderate tension latissimus and lower and mid traps PT-OP-J Posture/Palpation/Skin Start: 08/21/18 15:21 Freq: Status: Active Protocol: Document 08/21/18 14:30 RCC (Rec: 08/21/18 15:51 RCC [email or web address]) Posture Evaluation Comments Posture Comments severe forward head, moderate rounded shoulders, increased thoracic kyphosis in sitting PT-OP-K Range of Motion Start: 08/21/18 15:21 Freq: Status: Active Protocol: Document 08/21/18 14:30 RCC (Rec: 08/21/18 15:51 RCC [email or web address]) Cervical Spine Range of Motion Cervical Spine Active Degrees Testing Position Sitting Flexion 54 Extension 35 Rotation Left 65 Rotation Right 75 Lateral Flexion Left 25 Lateral Flexion Right 30 ROM Limitations Soft Tissue Tightness Muscle Tone Pain Lumbar Spine Range of Motion Lumbar Spine Active Percentage Comments WNL PT-OP-L Special Tests Start: 08/21/18 15:21 Freq: Status: Active Protocol: Document 08/21/18 14:30 RCC (Rec: 08/21/18 15:51 RCC [email or web address]) Special Tests Cervical Spine Special Tests Slump Test Results increases tension Spurling's Test Test Results positive B Lumbar Spine Special Tests Straight Leg Raise Test Results negative B PT-OP-M Strength Start: 08/21/18 15:21 Freq: Status: Active Protocol: Document 08/21/18 14:30 RCC (Rec: 08/21/18 15:51 RCC [email or web address]) Cervical Spine Strength Cervical Spine Manual Muscle Testing Comments pt able to hold chin tuck with head lift for 8 sec before losing chin tuck position Shoulder Strength Shoulder Manual Muscle Testing Right Flexion 4 Good Abduction (C5) 4+ Good+ External Rotation 3+ Fair+ Internal Rotation 5 Normal Left Flexion 5 Normal Abduction (C5) 4 Good External Rotation 4+ Good+ Internal Rotation 5 Normal Elbow/Forearm Strength Elbow and Forearm Manual Muscle Testing Right Flexion (C6) 5 Normal Extension (C7) 4 Good Left Flexion (C6) 5 Normal Extension (C7) 5 Normal PT-OP-Q Treatments Start: 08/21/18 15:21 Freq: Status: Active Protocol: Document 09/19/18 13:45 RCC (Rec: 09/19/18 15:01 RCC [email or web address]) Therapeutic Exercises Other Exercises Child's pose Other Exercise Name netural and bias to L and R Side bilateral Reps/Minutes 30 sec x2 each Cat/Cow Other Exercise Name cat/cow Side bilateral Reps/Minutes x8 Comments no neck extension Therapeutic Activity Therapeutic Activity HEP Name created and issued HEP Manual Therapy Treatment Soft Tissue Mobilization 3 Body Location lumbar and thoracic paraspinals Mobilization Type Myofascial Release Rolling Strumming Body Position Sidelying Manual Techniques MET Type scissor technique for R posterior ililal rotation Body Position Hooklying Reps/Duration 5 min PT-OP-R Modalities Start: 08/21/18 15:21 Freq: Status: Active Protocol: Document 09/19/18 13:45 RCC (Rec: 09/19/18 15:01 RCC [email or web address]) Hot Pack/Cold Pack Treatment Cold Pack Location cervical, thoracic, lumbar Patient Position Hooklying Treatment Duration (minutes) 10 Comments LE spasms x3 but no increase and pain, pt reported that ice felt better than heat after done at end of session PT-OP-S Aquatic Treatment Start: 08/21/18 15:21 Freq: Status: Active Protocol: Document 09/15/18 17:31 SAK (Rec: 09/15/18 17:41 SAK [id number]) Aquatics Treatment Water Walking fwd,bck, , july Water Level Chest Level Comments postural cues Lower Extremity Exercises hip circles Body Position Standing Water Level Chest Level Lower Extremity Stretches DKTC, SKTC Body Position Standing Water Level [place] Equipment wall Upper Extremity Exercises shoulder hor ab/ad, flex/ext Details fredi and unil Body Position Standing Water Level Chest Level Comments emphasis on core stabilization Spinal Exercises deep water hang Body Position Standing Water Level [place] Equipment wall Reps/Duration 3x 2 min Comments with deep breathing [place] Activities [place] Activities Bicycle Cross [place] Running Comments slow, mod verbal and manual cues for postural alignment PT-OP-T Assessment and Plan Start: 08/21/18 15:21 Freq: Status: Active Protocol: Document 09/19/18 13:45 RCC (Rec: 09/19/18 15:01 [facility] [email or web address]) Physical Therapy Assessment Assessment Summary Assessment Pt with decreased tension in upper lumbar and lower thoracic region with cat/cow and child's pose stretching. Pt did have spasm in LEs x3 when using ice, but did not want to discontinue and reported feeling better after session and preferred ice vs heat today. Physical Therapy Plan Frequency and Duration Frequency of Treatment 2x/Week Duration of Treatment 10 weeks Plan of Care Start Date 08/21/18 Plan of Care End Date 10/30/18 Next Visit Focus/Plan Next Note Type Treatment Note Next Visit Plan progress core stability gently , reinforce standing and sitting posture
--- NOTE | 2018-09-23 16:54 | PT.OTN ---
Current Diagnoses Fibromyalgia (09/23/18) Physical Therapy Treatment Note PT-OP-A Visit Information Start: 08/21/18 15:21 Freq: Status: Active Protocol: Document 09/23/18 16:45 SAK (Rec: 09/23/18 16:54 SAK [id number]) Out-Patient Physical Therapy Visit Information Visit Information Visit Type Treatment Note Visit Start Time 14:30 Visit Stop Time 15:20 Total Visit Minutes 50 Visit Number 7 Number of MANUFACTURER'S SERVICE REPRESENTATIVE Visits 0 Evaluation Information Evaluation Date 08/21/18 Precautions Precautions Fibromyalgia PT-OP-B Current Condition Start: 08/21/18 15:21 Freq: Status: Active Protocol: Document 08/21/18 14:30 RCC (Rec: 08/21/18 15:51 RCC [email or web address]) Current Condition History of Current Condition Onset Date years of chronic pain Current Complaints CAMACHO, neck and low back pain History of Current Condition Pt is a 42 y/o female presenting to physical therapy with a c/o bilateral neck and low back pain as well as a h/ o chronic CAMACHO. She received Botox injections every 3 mos, most recently got them on Saturday08/19/18 with now improved relief of CAMACHO. She has a h/o of a brain injury in 1997, and is now seeing someone for psychological help . She does OMM with Dr. Moore 1x/mo (after getting good improvements over time). 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 Pt notes that she is doing somewhat better after Botox injections, but does admit her pain comes and goes due to her fibromyalgia. She would like to be able to do Qigong again to assist with coordination and relaxation, which she has not had time to do due to home stressors and pain. Treatment Goals Patient/Caregiver Goals return to Qigong, improve posture and decrease pain Personal Factors Other Personal Factors That May Effect h/o brain injury 1997, Therapy/Recovery fibromyalgia, depression, memory loss, back and neck pain (chronic), anxiety, hypothyroidism PT-OP-C Subjective Start: 08/21/18 15:21 Freq: Status: Active Protocol: Document 09/23/18 16:45 SAK (Rec: 09/23/18 16:54 SAK [id number]) OP-PT Subjective Patient Comments Patient Comments Reports feeling stressed today due to some bewildering information about a legal matter. Has CAMACHO. PT-OP-F Manual Assessment Start: 08/21/18 15:21 Freq: Status: Active Protocol: Document 09/19/18 13:45 RCC (Rec: 09/19/18 15:01 RCC [email or web address]) Manual Assessments Soft Tissue Assessment Soft Tissue Mobility Assessment R>L moderate tension latissimus and lower and mid traps PT-OP-J Posture/Palpation/Skin Start: 08/21/18 15:21 Freq: Status: Active Protocol: Document 08/21/18 14:30 RCC (Rec: 08/21/18 15:51 RCC [email or web address]) Posture Evaluation Comments Posture Comments severe forward head, moderate rounded shoulders, increased thoracic kyphosis in sitting PT-OP-K Range of Motion Start: 08/21/18 15:21 Freq: Status: Active Protocol: Document 08/21/18 14:30 RCC (Rec: 08/21/18 15:51 RCC [email or web address]) Cervical Spine Range of Motion Cervical Spine Active Degrees Testing Position Sitting Flexion 54 Extension 35 Rotation Left 65 Rotation Right 75 Lateral Flexion Left 25 Lateral Flexion Right 30 ROM Limitations Soft Tissue Tightness Muscle Tone Pain Lumbar Spine Range of Motion Lumbar Spine Active Percentage Comments WNL PT-OP-L Special Tests Start: 08/21/18 15:21 Freq: Status: Active Protocol: Document 08/21/18 14:30 RCC (Rec: 08/21/18 15:51 RCC [email or web address]) Special Tests Cervical Spine Special Tests Slump Test Results increases tension Spurling's Test Test Results positive B Lumbar Spine Special Tests Straight Leg Raise Test Results negative B PT-OP-M Strength Start: 08/21/18 15:21 Freq: Status: Active Protocol: Document 08/21/18 14:30 RCC (Rec: 08/21/18 15:51 RCC [email or web address]) Cervical Spine Strength Cervical Spine Manual Muscle Testing Comments pt able to hold chin tuck with head lift for 8 sec before losing chin tuck position Shoulder Strength Shoulder Manual Muscle Testing Right Flexion 4 Good Abduction (C5) 4+ Good+ External Rotation 3+ Fair+ Internal Rotation 5 Normal Left Flexion 5 Normal Abduction (C5) 4 Good External Rotation 4+ Good+ Internal Rotation 5 Normal Elbow/Forearm Strength Elbow and Forearm Manual Muscle Testing Right Flexion (C6) 5 Normal Extension (C7) 4 Good Left Flexion (C6) 5 Normal Extension (C7) 5 Normal PT-OP-Q Treatments Start: 08/21/18 15:21 Freq: Status: Active Protocol: Document 09/23/18 16:45 SAK (Rec: 09/23/18 16:54 [facility] [id number]) Cardio Equipment Recumbent Stepper (Sci-Fit) Duration (Minutes) 5 Resistance 2 Seat Position 13 Therapeutic Exercises Sitting Exercises 1 Sitting Exercise Name Chin Tucks Reps/Minutes x3 Standing Exercises wall posture Reps/Minutes 3 min Other Exercises Child's pose Other Exercise Name netural and bias to L and R Side bilateral Reps/Minutes 30 sec x2 each Cat/Cow Other Exercise Name cat/cow Side bilateral Reps/Minutes x8 Comments no neck extension Manual Therapy Treatment Soft Tissue Mobilization 1 Body Location Suboccipitals, Upper Traps Mobilization Type Myofascial Release Rolling Intensity/Depth Superficial Body Position Hooklying Comments L side more tender than R Self-Care/Home Management Treatment Education Patient Education Posture PT-OP-R Modalities Start: 08/21/18 15:21 Freq: Status: Active Protocol: Document 09/23/18 16:45 [facility] (Rec: 09/23/18 16:54 [facility] [id number]) Hot Pack/Cold Pack Treatment Cold Pack Location cervical, thoracic, lumbar Patient Position Hooklying Treatment Duration (minutes) 5 Patient Tolerance Good Comments short duration due to need to continuous pickling line pickler helper son moist heat Location thoracic and lumbar paraspinals Patient Position Supine Treatment Duration (minutes) 5 Comments short duration due to need to continuous pickling line pickler helper son PT-OP-S Aquatic Treatment Start: 08/21/18 15:21 Freq: Status: Active Protocol: Document 09/15/18 17:31 [facility] (Rec: 09/15/18 17:41 [facility] [id number]) Aquatics Treatment Water Walking fwd,bck, , july Water Level Chest Level Comments postural cues Lower Extremity Exercises hip circles Body Position Standing Water Level Chest Level Lower Extremity Stretches DKTC, SKTC Body Position Standing Water Level [place] Equipment wall Upper Extremity Exercises shoulder hor ab/ad, flex/ext Details fredi and unil Body Position Standing Water Level Chest Level Comments emphasis on core stabilization Spinal Exercises deep water hang Body Position Standing Water Level [place] Equipment wall Reps/Duration 3x 2 min Comments with deep breathing [place] Activities [place] Activities Bicycle Cross Country Running Comments slow, mod verbal and manual cues for postural alignment PT-OP-T Assessment and Plan Start: 08/21/18 15:21 Freq: Status: Active Protocol: Document 09/23/18 16:45 TIFF (Rec: 09/23/18 16:54 [facility] [id number]) Physical Therapy Assessment Goals cervical spine ROM Impairment decreased cervical spine ROM Custodial Goal (LTG) cervical spine ROM flexion to 60 degrees extension to 50 degrees sidebending to 40 degrees bilaterally rotation to 80 degrees bilaterally posture Impairment sitting posture Vp Design Goal (LTG) Pt will demonstrate proper seated posture with neutral head, shoulders and slight to no thoracic kyphosis for 5 min without cuing prior to d/c to decrease overall cervicothoracic muscle tone. LTG Duration 10 weeks UE weakness Impairment UE weakness Short Term Goal (STG) Pt will demonstrate bilateral shoulder and elbow strength of 4+/5 or greater with all major muscle groups. STG Duration 5 weeks Vp Design Goal (LTG) Pt will demonstrate bilateral shoulder and elbow strength of 5/5 or greater with all major muscle groups. LTG Duration 10 weeks Recreational activities Impairment unable to participate in recreational activities Short Term Goal (STG) pt will tolerate return to Qigong for 15 min, 3 times per week with pain rated 6/10 or less. STG Duration 5 weeks Vp Design Goal (LTG) pt will tolerate return to Qigoan for at least 30 min, 3 times per week with pain rated 4/10 or less prior to d/c. LTG Duration 10 weeks Assessment Summary Assessment Increased muscle tension cervical region with emotional stress, decreased with treatment. Physical Therapy Plan Frequency and Duration Frequency of Treatment 2x/Week Duration of Treatment 10 weeks Plan of Care Start Date 08/21/18 Plan of Care End Date 10/30/18 Therapeutic Interventions Therapeutic Interventions Aquatic Therapy Balance Training Coordination Training Gait Training Home Exercise Program Manual Therapy Neuromuscular Re-education Orthotic/Prosthetic Management Patient/Caregiver Education Self-Care/Home Management Soft Tissue Mobilization Taping Therapeutic Activities Therapeutic Exercises Modalities Cold Pack/Ice Massage Electric Stimulation Hot Packs Ultrasound Next Visit Focus/Plan Next Note Type Treatment Note Next Visit Plan Gentle progression of postural correction and core stabilization.
--- NOTE | 2018-09-25 11:15 | PT.OTN ---
Current Diagnoses Fibromyalgia (09/25/18) Physical Therapy Treatment Note PT-OP-A Visit Information Start: 08/21/18 15:21 Freq: Status: Active Protocol: Document 09/25/18 11:15 RCC (Rec: 09/26/18 09:17 RCC [email or web address]) Out-Patient Physical Therapy Visit Information Visit Information Visit Type Treatment Note Visit Start Time 11:15 Visit Stop Time 12:10 Total Visit Minutes 55 Visit Number 8 Number of MANAGER UNIT Visits 0 Evaluation Information Evaluation Date 08/21/18 Precautions Precautions Fibromyalgia PT-OP-B Current Condition Start: 08/21/18 15:21 Freq: Status: Active Protocol: Document 08/21/18 14:30 RCC (Rec: 08/21/18 15:51 RCC [email or web address]) Current Condition History of Current Condition Onset Date years of chronic pain Current Complaints CAMACHO, neck and low back pain History of Current Condition Pt is a 42 y/o female presenting to physical therapy with a c/o bilateral neck and low back pain as well as a h/ o chronic CAMACHO. She received Botox injections every 3 mos, most recently got them on Saturday08/19/18 with now improved relief of CAMACHO. She has a h/o of a brain injury in 1997, and is now seeing someone for psychological help . She does OMM with Dr. Moore 1x/mo (after getting good improvements over time). 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 Pt notes that she is doing somewhat better after Botox injections, but does admit her pain comes and goes due to her fibromyalgia. She would like to be able to do Qigong again to assist with coordination and relaxation, which she has not had time to do due to home stressors and pain. Treatment Goals Patient/Caregiver Goals return to Qigong, improve posture and decrease pain Personal Factors Other Personal Factors That May Effect h/o brain injury 1997, Therapy/Recovery fibromyalgia, depression, memory loss, back and neck pain (chronic), anxiety, hypothyroidism PT-OP-C Subjective Start: 08/21/18 15:21 Freq: Status: Active Protocol: Document 09/25/18 11:15 RCC (Rec: 09/26/18 09:17 RCC [email or web address]) OP-PT Subjective Patient Comments Patient Comments Pt states her R hip feels like it is out. She feels fatigued after warm up activities. Her main complaint today is R sided low back pain. PT-OP-F Manual Assessment Start: 08/21/18 15:21 Freq: Status: Active Protocol: Document 09/25/18 11:15 RCC (Rec: 09/26/18 09:17 RCC [email or web address]) Manual Assessments Joint Mobility Assessment Joint Mobility Assessment level ASIS in supine; hypomobile SI joint on the R PT-OP-J Posture/Palpation/Skin Start: 08/21/18 15:21 Freq: Status: Active Protocol: Document 08/21/18 14:30 RCC (Rec: 08/21/18 15:51 RCC [email or web address]) Posture Evaluation Comments Posture Comments severe forward head, moderate rounded shoulders, increased thoracic kyphosis in sitting PT-OP-K Range of Motion Start: 08/21/18 15:21 Freq: Status: Active Protocol: Document 08/21/18 14:30 RCC (Rec: 08/21/18 15:51 RCC [email or web address]) Cervical Spine Range of Motion Cervical Spine Active Degrees Testing Position Sitting Flexion 54 Extension 35 Rotation Left 65 Rotation Right 75 Lateral Flexion Left 25 Lateral Flexion Right 30 ROM Limitations Soft Tissue Tightness Muscle Tone Pain Lumbar Spine Range of Motion Lumbar Spine Active Percentage Comments WNL PT-OP-L Special Tests Start: 08/21/18 15:21 Freq: Status: Active Protocol: Document 08/21/18 14:30 RCC (Rec: 08/21/18 15:51 RCC [email or web address]) Special Tests Cervical Spine Special Tests Slump Test Results increases tension Spurling's Test Test Results positive B Lumbar Spine Special Tests Straight Leg Raise Test Results negative B PT-OP-M Strength Start: 08/21/18 15:21 Freq: Status: Active Protocol: Document 08/21/18 14:30 RCC (Rec: 08/21/18 15:51 RCC [email or web address]) Cervical Spine Strength Cervical Spine Manual Muscle Testing Comments pt able to hold chin tuck with head lift for 8 sec before losing chin tuck position Shoulder Strength Shoulder Manual Muscle Testing Right Flexion 4 Good Abduction (C5) 4+ Good+ External Rotation 3+ Fair+ Internal Rotation 5 Normal Left Flexion 5 Normal Abduction (C5) 4 Good External Rotation 4+ Good+ Internal Rotation 5 Normal Elbow/Forearm Strength Elbow and Forearm Manual Muscle Testing Right Flexion (C6) 5 Normal Extension (C7) 4 Good Left Flexion (C6) 5 Normal Extension (C7) 5 Normal PT-OP-Q Treatments Start: 08/21/18 15:21 Freq: Status: Active Protocol: Document 09/25/18 11:15 RCC (Rec: 09/26/18 09:17 RCC [email or web address]) Cardio Equipment Treadmill Duration (Minutes) 2 Speed 0.5-0.7 mph Incline 0 Other fatigued, c/o R LBP radiating to buttock R Therapeutic Exercises Sidelying Exercises QL stretch Side right Reps/Minutes 6 min Comments L SL with feet on/off EOB with PT assist- gentle stretch Standing Exercises HC stretch Standing Exercise Name heel cord stretch on GLORIA Side bilateral Manual Therapy Treatment Soft Tissue Mobilization R QL, gluteals, piriformis Mobilization Type Myofascial Release Rolling Intensity/Depth Superficial Body Position Sidelying 3 Body Location lumbar and thoracic paraspinals Mobilization Type Myofascial Release Rolling Strumming Intensity/Depth Superficial Body Position Sidelying Joint Mobilizations R SI joint Direction PA Grade II Body Position Sidelying Reps/Duration 8 min Comments grade II, III PT-OP-R Modalities Start: 08/21/18 15:21 Freq: Status: Active Protocol: Document 09/25/18 11:15 RCC (Rec: 09/26/18 09:17 RCC [email or web address]) Hot Pack/Cold Pack Treatment Cold Pack Location cervical, thoracic, lumbar Patient Position Hooklying Treatment Duration (minutes) 10 Patient Tolerance Good Comments extra layer lumbar and thoracic PT-OP-S Aquatic Treatment Start: 08/21/18 15:21 Freq: Status: Active Protocol: Document 09/15/18 17:31 SAK (Rec: 09/15/18 17:41 SAK [id number]) Aquatics Treatment Water Walking fwd,bck, , july Water Level Chest Level Comments postural cues Lower Extremity Exercises hip circles Body Position Standing Water Level Chest Level Lower Extremity Stretches DKTC, SKTC Body Position Standing Water Level [place] Equipment wall Upper Extremity Exercises shoulder hor ab/ad, flex/ext Details fredi and unil Body Position Standing Water Level Chest Level Comments emphasis on core stabilization Spinal Exercises deep water hang Body Position Standing Water Level [place] Equipment wall Reps/Duration 3x 2 min Comments with deep breathing [place] Activities [place] Activities Bicycle Cross Country Running Comments slow, mod verbal and manual cues for postural alignment PT-OP-T Assessment and Plan Start: 08/21/18 15:21 Freq: Status: Active Protocol: Document 09/25/18 11:15 RCC (Rec: 09/26/18 09:17 RCC [email or web address]) Physical Therapy Assessment Assessment Summary Assessment Pt tolerated SI joint mobilizations well without spasm or c/o pain. She has intermittent spasm with soft tissue mobilization. Pt with increased low back pain with treadmill, indicating need for both manual therapy for correction of alignment and core stability. Physical Therapy Plan Frequency and Duration Frequency of Treatment 2x/Week Duration of Treatment 10 weeks Plan of Care Start Date 08/21/18 Plan of Care End Date 10/30/18 Next Visit Focus/Plan Next Note Type Treatment Note Next Visit Plan gentle core stability, stretching for tone restrictions in upper and lower body
--- NOTE | 2018-10-02 11:28 | PT.OTN ---
Current Diagnoses Fibromyalgia (10/02/18) Physical Therapy Treatment Note PT-OP-A Visit Information Start: 08/21/18 15:21 Freq: Status: Active Protocol: Document 10/02/18 11:28 RCC (Rec: 10/04/18 12:49 RCC [email or web address]) Out-Patient Physical Therapy Visit Information Visit Information Visit Type Treatment Note Visit Start Time 11:28 Visit Stop Time 12:10 Total Visit Minutes 42 Visit Number 9 Number of ENVIRONMENTAL TECHNICIAN Visits 0 Evaluation Information Evaluation Date 08/21/18 Precautions Precautions Fibromyalgia PT-OP-B Current Condition Start: 08/21/18 15:21 Freq: Status: Active Protocol: Document 08/21/18 14:30 RCC (Rec: 08/21/18 15:51 RCC [email or web address]) Current Condition History of Current Condition Onset Date years of chronic pain Current Complaints CAMACHO, neck and low back pain History of Current Condition Pt is a 42 y/o female presenting to physical therapy with a c/o bilateral neck and low back pain as well as a h/ o chronic CAMACHO. She received Botox injections every 3 mos, most recently got them on Saturday08/19/18 with now improved relief of CAMACHO. She has a h/o of a brain injury in 1997, and is now seeing someone for psychological help . She does OMM with Dr. Moore 1x/mo (after getting good improvements over time). 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 Pt notes that she is doing somewhat better after Botox injections, but does admit her pain comes and goes due to her fibromyalgia. She would like to be able to do Qigong again to assist with coordination and relaxation, which she has not had time to do due to home stressors and pain. Treatment Goals Patient/Caregiver Goals return to Qigong, improve posture and decrease pain Personal Factors Other Personal Factors That May Effect h/o brain injury 1997, Therapy/Recovery fibromyalgia, depression, memory loss, back and neck pain (chronic), anxiety, hypothyroidism PT-OP-C Subjective Start: 08/21/18 15:21 Freq: Status: Active Protocol: Document 10/02/18 11:28 RCC (Rec: 10/04/18 12:49 RCC [email or web address]) OP-PT Subjective Patient Comments Patient Comments Pt has court tomorrow, has been feeling more stress in her neck today compared to last week. PT-OP-F Manual Assessment Start: 08/21/18 15:21 Freq: Status: Active Protocol: Document 10/02/18 11:28 RCC (Rec: 10/04/18 12:49 RCC [email or web address]) Manual Assessments Soft Tissue Assessment Soft Tissue Mobility Assessment moderate tone levator, UT bilaterally, scalenes L and mild scalene R. PT-OP-J Posture/Palpation/Skin Start: 08/21/18 15:21 Freq: Status: Active Protocol: Document 08/21/18 14:30 RCC (Rec: 08/21/18 15:51 RCC [email or web address]) Posture Evaluation Comments Posture Comments severe forward head, moderate rounded shoulders, increased thoracic kyphosis in sitting PT-OP-K Range of Motion Start: 08/21/18 15:21 Freq: Status: Active Protocol: Document 08/21/18 14:30 RCC (Rec: 08/21/18 15:51 RCC [email or web address]) Cervical Spine Range of Motion Cervical Spine Active Degrees Testing Position Sitting Flexion 54 Extension 35 Rotation Left 65 Rotation Right 75 Lateral Flexion Left 25 Lateral Flexion Right 30 ROM Limitations Soft Tissue Tightness Muscle Tone Pain Lumbar Spine Range of Motion Lumbar Spine Active Percentage Comments WNL PT-OP-L Special Tests Start: 08/21/18 15:21 Freq: Status: Active Protocol: Document 08/21/18 14:30 RCC (Rec: 08/21/18 15:51 RCC [email or web address]) Special Tests Cervical Spine Special Tests Slump Test Results increases tension Spurling's Test Test Results positive B Lumbar Spine Special Tests Straight Leg Raise Test Results negative B PT-OP-M Strength Start: 08/21/18 15:21 Freq: Status: Active Protocol: Document 08/21/18 14:30 RCC (Rec: 08/21/18 15:51 RCC [email or web address]) Cervical Spine Strength Cervical Spine Manual Muscle Testing Comments pt able to hold chin tuck with head lift for 8 sec before losing chin tuck position Shoulder Strength Shoulder Manual Muscle Testing Right Flexion 4 Good Abduction (C5) 4+ Good+ External Rotation 3+ Fair+ Internal Rotation 5 Normal Left Flexion 5 Normal Abduction (C5) 4 Good External Rotation 4+ Good+ Internal Rotation 5 Normal Elbow/Forearm Strength Elbow and Forearm Manual Muscle Testing Right Flexion (C6) 5 Normal Extension (C7) 4 Good Left Flexion (C6) 5 Normal Extension (C7) 5 Normal PT-OP-Q Treatments Start: 08/21/18 15:21 Freq: Status: Active Protocol: Document 10/02/18 11:28 RCC (Rec: 10/04/18 12:49 RCC [email or web address]) Therapeutic Exercises Sitting Exercises UT, levator stretch Side bilateral Reps/Minutes x2 each x 30 sec 1 Sitting Exercise Name Chin Tucks Reps/Minutes x3 Manual Therapy Treatment Soft Tissue Mobilization levator, scalenes Body Location bilateral Mobilization Type Myofascial Release Rolling Intensity/Depth Superficial Body Position Hooklying 1 Body Location Suboccipitals, Upper Traps Mobilization Type Myofascial Release Rolling Intensity/Depth Superficial Body Position Hooklying PT-OP-R Modalities Start: 08/21/18 15:21 Freq: Status: Active Protocol: Document 10/02/18 11:28 RCC (Rec: 10/04/18 12:49 RCC [email or web address]) Hot Pack/Cold Pack Treatment Cold Pack Location cervical Patient Position Hooklying Treatment Duration (minutes) 10 Patient Tolerance Good PT-OP-S Aquatic Treatment Start: 08/21/18 15:21 Freq: Status: Active Protocol: Document 09/15/18 17:31 SAK (Rec: 09/15/18 17:41 [facility] [id number]) Aquatics Treatment Water Walking fwd,bck, july Water Level Chest Level Comments postural cues Lower Extremity Exercises hip circles Body Position Standing Water Level Chest Level Lower Extremity Stretches DKTC, SKTC Body Position Standing Water Level [place] Equipment wall Upper Extremity Exercises shoulder hor ab/ad, flex/ext Details fredi and unil Body Position Standing Water Level Chest Level Comments emphasis on core stabilization Spinal Exercises deep water hang Body Position Standing Water Level [place] Equipment wall Reps/Duration 3x 2 min Comments with deep breathing [place] Activities [place] Activities Bicycle Cross [place] Running Comments slow, mod verbal and manual cues for postural alignment PT-OP-T Assessment and Plan Start: 08/21/18 15:21 Freq: Status: Active Protocol: Document 10/02/18 11:28 RCC (Rec: 10/04/18 12:49 RCC [email or web address]) Physical Therapy Assessment Assessment Summary Assessment Pt with increased tone throughout the cervical spine today, likely secondary to poor posture and increased stress at home. No spasm with manual therapy today. Physical Therapy Plan Frequency and Duration Frequency of Treatment 2x/Week Duration of Treatment 10 weeks Plan of Care Start Date 08/21/18 Plan of Care End Date 10/30/18 Next Visit Focus/Plan Next Note Type Treatment Note Next Visit Plan address core stability when tolerable, standing posture
--- NOTE | 2018-10-09 10:30 | PT.OTN ---
Current Diagnoses Fibromyalgia (10/09/18) Physical Therapy Treatment Note PT-OP-A Visit Information Start: 08/21/18 15:21 Freq: Status: Active Protocol: Document 10/09/18 10:30 RCC (Rec: 10/09/18 12:35 RCC [email or web address]) Out-Patient Physical Therapy Visit Information Visit Information Visit Type Treatment Note Visit Start Time 10:30 Visit Stop Time 11:30 Total Visit Minutes 60 Visit Number 10 Number of ARC AIR OPERATOR Visits 0 Evaluation Information Evaluation Date 08/21/18 Precautions Precautions Fibromyalgia PT-OP-B Current Condition Start: 08/21/18 15:21 Freq: Status: Active Protocol: Document 08/21/18 14:30 RCC (Rec: 08/21/18 15:51 RCC [email or web address]) Current Condition History of Current Condition Onset Date years of chronic pain Current Complaints CAMACHO, neck and low back pain History of Current Condition Pt is a 42 y/o female presenting to physical therapy with a c/o bilateral neck and low back pain as well as a h/ o chronic CAMACHO. She received Botox injections every 3 mos, most recently got them on Saturday08/19/18 with now improved relief of CAMACHO. She has a h/o of a brain injury in 1997, and is now seeing someone for psychological help . She does OMM with Dr. Moore 1x/mo (after getting good improvements over time). 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 Pt notes that she is doing somewhat better after Botox injections, but does admit her pain comes and goes due to her fibromyalgia. She would like to be able to do Qigong again to assist with coordination and relaxation, which she has not had time to do due to home stressors and pain. Treatment Goals Patient/Caregiver Goals return to Qigong, improve posture and decrease pain Personal Factors Other Personal Factors That May Effect h/o brain injury 1997, Therapy/Recovery fibromyalgia, depression, memory loss, back and neck pain (chronic), anxiety, hypothyroidism PT-OP-C Subjective Start: 08/21/18 15:21 Freq: Status: Active Protocol: Document 10/09/18 10:30 RCC (Rec: 10/09/18 12:35 RCC [email or web address]) OP-PT Subjective Patient Comments Patient Comments Pt feeling like her pain intensity has been a little less this week, although stress level is still very high. PT-OP-F Manual Assessment Start: 08/21/18 15:21 Freq: Status: Active Protocol: Document 10/02/18 11:28 RCC (Rec: 10/04/18 12:49 RCC [email or web address]) Manual Assessments Soft Tissue Assessment Soft Tissue Mobility Assessment moderate tone levator, UT bilaterally, scalenes L and mild scalene R. PT-OP-J Posture/Palpation/Skin Start: 08/21/18 15:21 Freq: Status: Active Protocol: Document 08/21/18 14:30 RCC (Rec: 08/21/18 15:51 RCC [email or web address]) Posture Evaluation Comments Posture Comments severe forward head, moderate rounded shoulders, increased thoracic kyphosis in sitting PT-OP-K Range of Motion Start: 08/21/18 15:21 Freq: Status: Active Protocol: Document 08/21/18 14:30 RCC (Rec: 08/21/18 15:51 RCC [email or web address]) Cervical Spine Range of Motion Cervical Spine Active Degrees Testing Position Sitting Flexion 54 Extension 35 Rotation Left 65 Rotation Right 75 Lateral Flexion Left 25 Lateral Flexion Right 30 ROM Limitations Soft Tissue Tightness Muscle Tone Pain Lumbar Spine Range of Motion Lumbar Spine Active Percentage Comments WNL PT-OP-L Special Tests Start: 08/21/18 15:21 Freq: Status: Active Protocol: Document 08/21/18 14:30 RCC (Rec: 08/21/18 15:51 RCC [email or web address]) Special Tests Cervical Spine Special Tests Slump Test Results increases tension Spurling's Test Test Results positive B Lumbar Spine Special Tests Straight Leg Raise Test Results negative B PT-OP-M Strength Start: 08/21/18 15:21 Freq: Status: Active Protocol: Document 08/21/18 14:30 RCC (Rec: 08/21/18 15:51 RCC [email or web address]) Cervical Spine Strength Cervical Spine Manual Muscle Testing Comments pt able to hold chin tuck with head lift for 8 sec before losing chin tuck position Shoulder Strength Shoulder Manual Muscle Testing Right Flexion 4 Good Abduction (C5) 4+ Good+ External Rotation 3+ Fair+ Internal Rotation 5 Normal Left Flexion 5 Normal Abduction (C5) 4 Good External Rotation 4+ Good+ Internal Rotation 5 Normal Elbow/Forearm Strength Elbow and Forearm Manual Muscle Testing Right Flexion (C6) 5 Normal Extension (C7) 4 Good Left Flexion (C6) 5 Normal Extension (C7) 5 Normal PT-OP-Q Treatments Start: 08/21/18 15:21 Freq: Status: Active Protocol: Document 10/09/18 10:30 RCC (Rec: 10/09/18 12:35 RCC [email or web address]) Gym Equipment Therapeutic Ball PPT Ball Size/Color 65 cm Body Position Sitting Reps/Duration x30 Comments min tactile cuing Therapeutic Exercises Supine Exercises 1/2 foam roll Supine Exercise Name B shoulder flexion and horizontal abd/adduction on 1/ 2 foam roll Side bilateral Reps/Minutes x30 each Sitting Exercises postural awareness with deep breathing Sitting Exercise Name B shoulder hang with seated and occasional partial squat with posture Reps/Minutes 5 min Comments deep breathing Standing Exercises PPT Standing Exercise Name posterior pelvic tilt in standing Side bilateral Manual Therapy Treatment Soft Tissue Mobilization thoracic paraspinals Mobilization Type Myofascial Release Rolling Intensity/Depth Moderate Body Position Sidelying 1 Body Location Suboccipitals, Upper Trap Mobilization Type Myofascial Release Rolling Intensity/Depth Superficial Body Position Hooklying Comments right Manual Techniques MET Type scissor technique for R posterior ililal rotation Body Position Hooklying Reps/Duration 5 min PT-OP-R Modalities Start: 08/21/18 15:21 Freq: Status: Active Protocol: Document 10/09/18 10:30 RCC (Rec: 10/09/18 12:35 RCC [email or web address]) Hot Pack/Cold Pack Treatment Cold Pack Location thoracic, lumbar Patient Position Hooklying Treatment Duration (minutes) 10 Patient Tolerance Good Comments extra layer lumbar and thoracic moist heat Location cervical Patient Position Hooklying Treatment Duration (minutes) 10 PT-OP-S Aquatic Treatment Start: 08/21/18 15:21 Freq: Status: Active Protocol: Document 09/15/18 17:31 SAK (Rec: 09/15/18 17:41 SAK [id number]) Aquatics Treatment Water Walking fwd,bck, , july Water Level Chest Level Comments postural cues Lower Extremity Exercises hip circles Body Position Standing Water Level Chest Level Lower Extremity Stretches DKTC, SKTC Body Position Standing Water Level [place] Equipment wall Upper Extremity Exercises shoulder hor ab/ad, flex/ext Details fredi and unil Body Position Standing Water Level Chest Level Comments emphasis on core stabilization Spinal Exercises deep water hang Body Position Standing Water Level [place] Equipment wall Reps/Duration 3x 2 min Comments with deep breathing [place] Activities [place] Activities Bicycle Cross [place] Running Comments slow, mod verbal and manual cues for postural alignment PT-OP-T Assessment and Plan Start: 08/21/18 15:21 Freq: Status: Active Protocol: Document 10/09/18 10:30 RCC (Rec: 10/09/18 12:35 RCC [email or web address]) Physical Therapy Assessment Assessment Summary Assessment Pt with difficulty initially with PPT sitting on ball, requiring tactile cuing to perform appropriately. Pt with increased LE and upper body spasm post-exercise on foam roll, limiting the ability of full release of upper trap on the R with manual therapy. Physical Therapy Plan Frequency and Duration Frequency of Treatment 2x/Week Duration of Treatment 10 weeks Plan of Care Start Date 08/21/18 Plan of Care End Date 10/30/18 Next Visit Focus/Plan Next Note Type Treatment Note Next Visit Plan cont postural training as tolerated, core strengthening
--- NOTE | 2018-10-14 12:09 | PT.OTN ---
Current Diagnoses Fibromyalgia (10/14/18) Physical Therapy Treatment Note PT-OP-A Visit Information Start: 08/21/18 15:21 Freq: Status: Active Protocol: Document 10/14/18 11:02 EA (Rec: 10/14/18 11:11 EA [id number]) Out-Patient Physical Therapy Visit Information Visit Information Visit Type Treatment Note Visit Start Time 10:30 Visit Stop Time 11:15 Total Visit Minutes 45 Visit Number 11 Number of DEMO EVENT SPECIALIST Visits 0 PT-OP-B Current Condition Start: 08/21/18 15:21 Freq: Status: Active Protocol: Document 08/21/18 14:30 RCC (Rec: 08/21/18 15:51 RCC [email or web address]) Current Condition History of Current Condition Onset Date years of chronic pain Current Complaints CAMACHO, neck and low back pain History of Current Condition Pt is a 42 y/o female presenting to physical therapy with a c/o bilateral neck and low back pain as well as a h/ o chronic CAMACHO. She received Botox injections every 3 mos, most recently got them on Saturday08/19/18 with now improved relief of CAMACHO. She has a h/o of a brain injury in 1997, and is now seeing someone for psychological help . She does OMM with Dr. Moore 1x/mo (after getting good improvements over time). 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 Pt notes that she is doing somewhat better after Botox injections, but does admit her pain comes and goes due to her fibromyalgia. She would like to be able to do Qigong again to assist with coordination and relaxation, which she has not had time to do due to home stressors and pain. Treatment Goals Patient/Caregiver Goals return to Qigong, improve posture and decrease pain Personal Factors Other Personal Factors That May Effect h/o brain injury 1997, Therapy/Recovery fibromyalgia, depression, memory loss, back and neck pain (chronic), anxiety, hypothyroidism PT-OP-C Subjective Start: 08/21/18 15:21 Freq: Status: Active Protocol: Document 10/14/18 11:02 EA (Rec: 10/14/18 11:11 EA [id number]) OP-PT Subjective Patient Comments Patient Comments Pt reports she feels good today; states she had done a lot of home errands and pain is much lesser. PT-OP-F Manual Assessment Start: 08/21/18 15:21 Freq: Status: Active Protocol: Document 10/02/18 11:28 RCC (Rec: 10/04/18 12:49 RCC [email or web address]) Manual Assessments Soft Tissue Assessment Soft Tissue Mobility Assessment moderate tone levator, UT bilaterally, scalenes L and mild scalene R. PT-OP-J Posture/Palpation/Skin Start: 08/21/18 15:21 Freq: Status: Active Protocol: Document 08/21/18 14:30 RCC (Rec: 08/21/18 15:51 RCC [email or web address]) Posture Evaluation Comments Posture Comments severe forward head, moderate rounded shoulders, increased thoracic kyphosis in sitting PT-OP-K Range of Motion Start: 08/21/18 15:21 Freq: Status: Active Protocol: Document 08/21/18 14:30 RCC (Rec: 08/21/18 15:51 RCC [email or web address]) Cervical Spine Range of Motion Cervical Spine Active Degrees Testing Position Sitting Flexion 54 Extension 35 Rotation Left 65 Rotation Right 75 Lateral Flexion Left 25 Lateral Flexion Right 30 ROM Limitations Soft Tissue Tightness Muscle Tone Pain Lumbar Spine Range of Motion Lumbar Spine Active Percentage Comments WNL PT-OP-L Special Tests Start: 08/21/18 15:21 Freq: Status: Active Protocol: Document 08/21/18 14:30 RCC (Rec: 08/21/18 15:51 RCC [email or web address]) Special Tests Cervical Spine Special Tests Slump Test Results increases tension Spurling's Test Test Results positive B Lumbar Spine Special Tests Straight Leg Raise Test Results negative B PT-OP-M Strength Start: 08/21/18 15:21 Freq: Status: Active Protocol: Document 08/21/18 14:30 RCC (Rec: 08/21/18 15:51 RCC [email or web address]) Cervical Spine Strength Cervical Spine Manual Muscle Testing Comments pt able to hold chin tuck with head lift for 8 sec before losing chin tuck position Shoulder Strength Shoulder Manual Muscle Testing Right Flexion 4 Good Abduction (C5) 4+ Good+ External Rotation 3+ Fair+ Internal Rotation 5 Normal Left Flexion 5 Normal Abduction (C5) 4 Good External Rotation 4+ Good+ Internal Rotation 5 Normal Elbow/Forearm Strength Elbow and Forearm Manual Muscle Testing Right Flexion (C6) 5 Normal Extension (C7) 4 Good Left Flexion (C6) 5 Normal Extension (C7) 5 Normal PT-OP-Q Treatments Start: 08/21/18 15:21 Freq: Status: Active Protocol: Document 10/14/18 11:02 EA (Rec: 10/14/18 11:11 EA [id number]) Cardio Equipment Upper Body Ergometer (UBE) Duration (Minutes) 6 RPM 30 Seat Position 11 Height 3 Other to warm up: patient choice Therapeutic Exercises Supine Exercises 5 Supine Exercise Name Low back getle rotation stretch Reps/Minutes x 15SH x 5 reps 4 Supine Exercise Name Traps and neck rotators stretch Reps/Minutes x 15SH x 2 reps 3 Supine Exercise Name Neck flexion Reps/Minutes x 10 reps 1/2 foam roll Supine Exercise Name Chin tuck Reps/Minutes x 5SH x 5 reps 2 Supine Exercise Name PPT with marching Reps/Minutes x 5 reps x 5 sets 1 Supine Exercise Name PPT with SKTC Reps/Minutes x 5SH x 5 reps each leg chin tuck Supine Exercise Name BKTC Side bilateral Reps/Minutes x 15SH x 2 reps each Sitting Exercises UT, levator stretch Side bilateral Reps/Minutes x2 each x 30 sec Standing Exercises PPT Standing Exercise Name Wall squat with PPT Side bilateral Reps/Minutes x 5SH x 5 reps Comments [place] wall posture Standing Exercise Name Wall squat -PPT- Shoulder flexion Reps/Minutes X 5SH x 5 reps Comments chin tuck. Other Exercises Cat/Cow Other Exercise Name cat/cow Side bilateral Reps/Minutes x8 Comments no neck extension PT-OP-R Modalities Start: 08/21/18 15:21 Freq: Status: Active Protocol: Document 10/14/18 11:02 EA (Rec: 10/14/18 11:11 EA [id number]) Hot Pack/Cold Pack Treatment Cold Pack Location thoracic, lumbar Patient Position Hooklying Treatment Duration (minutes) 15 Patient Tolerance Good Comments extra layer lumbar and thoracic PT-OP-S Aquatic Treatment Start: 08/21/18 15:21 Freq: Status: Active Protocol: Document 09/15/18 17:31 SAK (Rec: 09/15/18 17:41 SAK [id number]) Aquatics Treatment Water Walking fwd,bck, side, july Water Level Chest Level Comments postural cues Lower Extremity Exercises hip circles Body Position Standing Water Level Chest Level Lower Extremity Stretches DKTC, SKTC Body Position Standing Water Level [place] Equipment wall Upper Extremity Exercises shoulder hor ab/ad, flex/ext Details fredi and unil Body Position Standing Water Level Chest Level Comments emphasis on core stabilization Spinal Exercises deep water hang Body Position Standing Water Level [place] Equipment wall Reps/Duration 3x 2 min Comments with deep breathing [place] Activities [place] Activities Bicycle Cross [place] Running Comments slow, mod verbal and manual cues for postural alignment PT-OP-T Assessment and Plan Start: 08/21/18 15:21 Freq: Status: Active Protocol: Document 10/14/18 11:02 EA (Rec: 10/14/18 11:11 EA [id number]) Physical Therapy Assessment Assessment Summary Assessment Pt refused heat as she feels cold would be better after doing exercises. Patient perform therex with no difficulty except with neck flexion which she stated struggle. Overall she tolerated exercises well. Physical Therapy Plan Next Visit Focus/Plan Next Note Type Treatment Note Next Visit Plan cont postural training as tolerated, core strengthening
--- NOTE | 2018-10-16 10:30 | PT.OTN ---
Current Diagnoses Fibromyalgia (10/16/18) Physical Therapy Treatment Note PT-OP-A Visit Information Start: 08/21/18 15:21 Freq: Status: Active Protocol: Document 10/16/18 10:30 RCC (Rec: 10/16/18 13:58 RCC [email or web address]) Out-Patient Physical Therapy Visit Information Visit Information Visit Type Treatment Note Visit Start Time 10:30 Visit Stop Time 11:21 Total Visit Minutes 51 Visit Number 12 Number of PRACTICE ASSISTANT Visits 0 Evaluation Information Evaluation Date 08/21/18 Precautions Precautions Fibromyalgia PT-OP-B Current Condition Start: 08/21/18 15:21 Freq: Status: Active Protocol: Document 08/21/18 14:30 RCC (Rec: 08/21/18 15:51 RCC [email or web address]) Current Condition History of Current Condition Onset Date years of chronic pain Current Complaints CAMACHO, neck and low back pain History of Current Condition Pt is a 42 y/o female presenting to physical therapy with a c/o bilateral neck and low back pain as well as a h/ o chronic CAMACHO. She received Botox injections every 3 mos, most recently got them on Saturday08/19/18 with now improved relief of CAMACHO. She has a h/o of a brain injury in 1997, and is now seeing someone for psychological help . She does OMM with Dr. Moore 1x/mo (after getting good improvements over time). 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 Pt notes that she is doing somewhat better after Botox injections, but does admit her pain comes and goes due to her fibromyalgia. She would like to be able to do Qigong again to assist with coordination and relaxation, which she has not had time to do due to home stressors and pain. Treatment Goals Patient/Caregiver Goals return to Qigong, improve posture and decrease pain Personal Factors Other Personal Factors That May Effect h/o brain injury 1997, Therapy/Recovery fibromyalgia, depression, memory loss, back and neck pain (chronic), anxiety, hypothyroidism PT-OP-C Subjective Start: 08/21/18 15:21 Freq: Status: Active Protocol: Document 10/16/18 10:30 RCC (Rec: 10/16/18 13:58 RCC [email or web address]) OP-PT Subjective Patient Comments Patient Comments Pt states that she was sore after the previous session, she did attempt to do some Tango, but too painful in her upper body and neck. PT-OP-F Manual Assessment Start: 08/21/18 15:21 Freq: Status: Active Protocol: Document 10/02/18 11:28 RCC (Rec: 10/04/18 12:49 RCC [email or web address]) Manual Assessments Soft Tissue Assessment Soft Tissue Mobility Assessment moderate tone levator, UT bilaterally, scalenes L and mild scalene R. PT-OP-J Posture/Palpation/Skin Start: 08/21/18 15:21 Freq: Status: Active Protocol: Document 08/21/18 14:30 RCC (Rec: 08/21/18 15:51 RCC [email or web address]) Posture Evaluation Comments Posture Comments severe forward head, moderate rounded shoulders, increased thoracic kyphosis in sitting PT-OP-K Range of Motion Start: 08/21/18 15:21 Freq: Status: Active Protocol: Document 08/21/18 14:30 RCC (Rec: 08/21/18 15:51 RCC [email or web address]) Cervical Spine Range of Motion Cervical Spine Active Degrees Testing Position Sitting Flexion 54 Extension 35 Rotation Left 65 Rotation Right 75 Lateral Flexion Left 25 Lateral Flexion Right 30 ROM Limitations Soft Tissue Tightness Muscle Tone Pain Lumbar Spine Range of Motion Lumbar Spine Active Percentage Comments WNL PT-OP-L Special Tests Start: 08/21/18 15:21 Freq: Status: Active Protocol: Document 08/21/18 14:30 RCC (Rec: 08/21/18 15:51 RCC [email or web address]) Special Tests Cervical Spine Special Tests Slump Test Results increases tension Spurling's Test Test Results positive B Lumbar Spine Special Tests Straight Leg Raise Test Results negative B PT-OP-M Strength Start: 08/21/18 15:21 Freq: Status: Active Protocol: Document 08/21/18 14:30 RCC (Rec: 08/21/18 15:51 RCC [email or web address]) Cervical Spine Strength Cervical Spine Manual Muscle Testing Comments pt able to hold chin tuck with head lift for 8 sec before losing chin tuck position Shoulder Strength Shoulder Manual Muscle Testing Right Flexion 4 Good Abduction (C5) 4+ Good+ External Rotation 3+ Fair+ Internal Rotation 5 Normal Left Flexion 5 Normal Abduction (C5) 4 Good External Rotation 4+ Good+ Internal Rotation 5 Normal Elbow/Forearm Strength Elbow and Forearm Manual Muscle Testing Right Flexion (C6) 5 Normal Extension (C7) 4 Good Left Flexion (C6) 5 Normal Extension (C7) 5 Normal PT-OP-Q Treatments Start: 08/21/18 15:21 Freq: Status: Active Protocol: Document 10/16/18 10:30 RCC (Rec: 10/16/18 13:58 RCC [email or web address]) Manual Therapy Treatment Soft Tissue Mobilization levator, scalenes Body Location bilateral Mobilization Type Myofascial Release Rolling Intensity/Depth Superficial Body Position Hooklying 1 Body Location Suboccipitals, Upper Trap Mobilization Type Myofascial Release Rolling Intensity/Depth Superficial Body Position Hooklying Comments right Joint Mobilizations cervical sideglide Joint C3, 4 Direction right sideglide Grade III Body Position Hooklying Reps/Duration x5 min PT-OP-R Modalities Start: 08/21/18 15:21 Freq: Status: Active Protocol: Document 10/16/18 10:30 RCC (Rec: 10/16/18 13:58 RCC [email or web address]) Hot Pack/Cold Pack Treatment Cold Pack Location cervical Patient Position Hooklying Treatment Duration (minutes) 10 Patient Tolerance Good Comments performed with MHP moist heat Location thoracolumbar Patient Position Hooklying Treatment Duration (minutes) 10 Comments performed with CP PT-OP-S Aquatic Treatment Start: 08/21/18 15:21 Freq: Status: Active Protocol: Document 09/15/18 17:31 SAK (Rec: 09/15/18 17:41 SAK [id number]) Aquatics Treatment Water Walking fwd,bck, , july Water Level Chest Level Comments postural cues Lower Extremity Exercises hip circles Body Position Standing Water Level Chest Level Lower Extremity Stretches DKTC, SKTC Body Position Standing Water Level [place] Equipment wall Upper Extremity Exercises shoulder hor ab/ad, flex/ext Details fredi and unil Body Position Standing Water Level Chest Level Comments emphasis on core stabilization Spinal Exercises deep water hang Body Position Standing Water Level [place] Equipment wall Reps/Duration 3x 2 min Comments with deep breathing [place] Activities [place] Activities Bicycle [place] Running Comments slow, mod verbal and manual cues for postural alignment PT-OP-T Assessment and Plan Start: 08/21/18 15:21 Freq: Status: Active Protocol: Document 10/16/18 10:30 RCC (Rec: 10/16/18 13:58 RCC [email or web address]) Physical Therapy Assessment Assessment Summary Assessment Pt presented with increased tone in bilateral UT, levator and scalenes, L>R. Pt appears to have tolerated exercise well during session, but likely due to fatigue had secondary poor postures and positioning along with life stresses that aggravated upper body. Physical Therapy Plan Frequency and Duration Frequency of Treatment 2x/Week Duration of Treatment 10 weeks Plan of Care Start Date 08/21/18 Plan of Care End Date 10/30/18 Next Visit Focus/Plan Next Note Type Treatment Note Next Visit Plan posture and core stability
--- NOTE | 2018-10-21 11:48 | PT.OTN ---
Current Diagnoses Fibromyalgia (10/21/18) Physical Therapy Treatment Note PT-OP-A Visit Information Start: 08/21/18 15:21 Freq: Status: Active Protocol: Document 10/21/18 11:40 SA (Rec: 10/21/18 11:47 SA [email or web address]) Out-Patient Physical Therapy Visit Information Visit Information Visit Type Treatment Note Visit Start Time 10:30 Visit Stop Time 11:20 Total Visit Minutes 50 Visit Number 13 Number of [employer] PROCESSING SUPERVISOR Visits 1 PT-OP-B Current Condition Start: 08/21/18 15:21 Freq: Status: Active Protocol: Document 08/21/18 14:30 RCC (Rec: 08/21/18 15:51 RCC [email or web address]) Current Condition History of Current Condition Onset Date years of chronic pain Current Complaints CAMACHO, neck and low back pain History of Current Condition Pt is a 42 y/o female presenting to physical therapy with a c/o bilateral neck and low back pain as well as a h/ o chronic CAMACHO. She received Botox injections every 3 mos, most recently got them on Saturday08/19/18 with now improved relief of CAMACHO. She has a h/o of a brain injury in 1997, and is now seeing someone for psychological help . She does OMM with Dr. Moore 1x/mo (after getting good improvements over time). 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 Pt notes that she is doing somewhat better after Botox injections, but does admit her pain comes and goes due to her fibromyalgia. She would like to be able to do Qigong again to assist with coordination and relaxation, which she has not had time to do due to home stressors and pain. Treatment Goals Patient/Caregiver Goals return to Qigong, improve posture and decrease pain Personal Factors Other Personal Factors That May Effect h/o brain injury 1997, Therapy/Recovery fibromyalgia, depression, memory loss, back and neck pain (chronic), anxiety, hypothyroidism PT-OP-C Subjective Start: 08/21/18 15:21 Freq: Status: Active Protocol: Document 10/21/18 11:40 SA (Rec: 10/21/18 11:47 SA [email or web address]) OP-PT Subjective Patient Comments Patient Comments Pt reports pain through interscap and CAMACHO today. Did tango again with modifications and rest breaks. PT-OP-F Manual Assessment Start: 08/21/18 15:21 Freq: Status: Active Protocol: Document 10/02/18 11:28 RCC (Rec: 10/04/18 12:49 RCC [email or web address]) Manual Assessments Soft Tissue Assessment Soft Tissue Mobility Assessment moderate tone levator, UT bilaterally, scalenes L and mild scalene R. PT-OP-J Posture/Palpation/Skin Start: 08/21/18 15:21 Freq: Status: Active Protocol: Document 08/21/18 14:30 RCC (Rec: 08/21/18 15:51 RCC [email or web address]) Posture Evaluation Comments Posture Comments severe forward head, moderate rounded shoulders, increased thoracic kyphosis in sitting PT-OP-K Range of Motion Start: 08/21/18 15:21 Freq: Status: Active Protocol: Document 08/21/18 14:30 RCC (Rec: 08/21/18 15:51 RCC [email or web address]) Cervical Spine Range of Motion Cervical Spine Active Degrees Testing Position Sitting Flexion 54 Extension 35 Rotation Left 65 Rotation Right 75 Lateral Flexion Left 25 Lateral Flexion Right 30 ROM Limitations Soft Tissue Tightness Muscle Tone Pain Lumbar Spine Range of Motion Lumbar Spine Active Percentage Comments WNL PT-OP-L Special Tests Start: 08/21/18 15:21 Freq: Status: Active Protocol: Document 08/21/18 14:30 RCC (Rec: 08/21/18 15:51 RCC [email or web address]) Special Tests Cervical Spine Special Tests Slump Test Results increases tension Spurling's Test Test Results positive B Lumbar Spine Special Tests Straight Leg Raise Test Results negative B PT-OP-M Strength Start: 08/21/18 15:21 Freq: Status: Active Protocol: Document 08/21/18 14:30 RCC (Rec: 08/21/18 15:51 RCC [email or web address]) Cervical Spine Strength Cervical Spine Manual Muscle Testing Comments pt able to hold chin tuck with head lift for 8 sec before losing chin tuck position Shoulder Strength Shoulder Manual Muscle Testing Right Flexion 4 Good Abduction (C5) 4+ Good+ External Rotation 3+ Fair+ Internal Rotation 5 Normal Left Flexion 5 Normal Abduction (C5) 4 Good External Rotation 4+ Good+ Internal Rotation 5 Normal Elbow/Forearm Strength Elbow and Forearm Manual Muscle Testing Right Flexion (C6) 5 Normal Extension (C7) 4 Good Left Flexion (C6) 5 Normal Extension (C7) 5 Normal PT-OP-Q Treatments Start: 08/21/18 15:21 Freq: Status: Active Protocol: Document 10/21/18 11:40 SA (Rec: 10/21/18 11:47 SA [email or web address]) Cardio Equipment Upper Body Ergometer (UBE) Duration (Minutes) 6 Seat Position 11 Other to warm up: patient choice Therapeutic Exercises Supine Exercises 4 Supine Exercise Name Traps and neck rotators stretch Reps/Minutes x 15SH x 2 reps chin tuck Supine Exercise Name chin tuck Reps/Minutes 15 x Sitting Exercises UT, levator stretch Side bilateral Reps/Minutes x2 each x 30 sec Standing Exercises row, shld ext Standing Exercise Name scapualr row Side bilateral Resistance #1 TB Reps/Minutes 15x Other Exercises Cat/Cow Other Exercise Name cat/cow Side bilateral Reps/Minutes x8 Comments no neck extension Manual Therapy Treatment Soft Tissue Mobilization thoracic paraspinals Mobilization Type Myofascial Release Rolling Intensity/Depth Moderate Body Position Sidelying levator, scalenes Body Location bilateral Mobilization Type Myofascial Release Rolling Intensity/Depth Superficial Body Position Hooklying PT-OP-R Modalities Start: 08/21/18 15:21 Freq: Status: Active Protocol: Document 10/21/18 11:40 SA (Rec: 10/21/18 11:47 SA [email or web address]) Hot Pack/Cold Pack Treatment Cold Pack Location cervical/thoracic spine Patient Position Hooklying Treatment Duration (minutes) 10 Patient Tolerance Good Comments performed with P PT-OP-S Aquatic Treatment Start: 08/21/18 15:21 Freq: Status: Active Protocol: Document 09/15/18 17:31 [facility] (Rec: 09/15/18 17:41 [facility] [id number]) Aquatics Treatment Water Walking fwd,bck, , july Water Level Chest Level Comments postural cues Lower Extremity Exercises hip circles Body Position Standing Water Level Chest Level Lower Extremity Stretches DKTC, SKTC Body Position Standing Water Level [place] Equipment wall Upper Extremity Exercises shoulder hor ab/ad, flex/ext Details fredi and unil Body Position Standing Water Level Chest Level Comments emphasis on core stabilization Spinal Exercises deep water hang Body Position Standing Water Level [place] Equipment wall Reps/Duration 3x 2 min Comments with deep breathing [place] Activities [place] Activities Bicycle Cross Country Running Comments slow, mod verbal and manual cues for postural alignment PT-OP-T Assessment and Plan Start: 04/11/19 15:21 Freq: Status: Active Protocol: Document 10/21/18 11:40 SA (Rec: 10/21/18 11:47 SA [email or web address]) Physical Therapy Assessment Assessment Summary Assessment Pt slightly better than last visit with thoracic pain her biggest complaint, tolerated limited exercise well and reports manual therapy decreases symptoms. Physical Therapy Plan Next Visit Focus/Plan Next Note Type Treatment Note Next Visit Plan posture and core stability
--- NOTE | 2018-10-23 09:45 | PT.OPPOC ---
Current Diagnoses Fibromyalgia (10/23/18) Provider Visit Care Team Role Provider Type César Mercado MD Attending Provider Physician Primary Care Provider Specialty: Family Practice Address: [address] [place] [address], [id number] Email: [email or web address] Plan Of Care PT-OP-T Assessment and Plan Start: 08/21/18 15:21 Freq: Status: Active Protocol: Document 10/23/18 09:45 RCC (Rec: 10/25/18 12:17 RCC [email or web address]) Physical Therapy Assessment Goals cervical spine ROM Impairment decreased cervical spine ROM Spool Carrier Goal (LTG) cervical spine ROM flexion to 60 degrees extension to 50 degrees sidebending to 40 degrees bilaterally rotation to 80 degrees bilaterally 10/23/18: good progress LTG Duration 6 weeks posture Impairment sitting posture Spool Carrier Goal (LTG) Pt will demonstrate proper seated posture with neutral head, shoulders and slight to no thoracic kyphosis for 5 min without cuing prior to d/c to decrease overall cervicothoracic muscle tone. 10/23/18: not tested LTG Duration 6 weeks UE weakness Impairment UE weakness Short Term Goal (STG) Pt will demonstrate bilateral shoulder and elbow strength of 4+/5 or greater with all major muscle groups. 10/23/18: good progress STG Duration 3 weeks Spool Carrier Goal (LTG) Pt will demonstrate bilateral shoulder and elbow strength of 5/5 or greater with all major muscle groups. LTG Duration 6 weeks Recreational activities Impairment unable to participate in recreational activities Short Term Goal (STG) pt will tolerate return to [facility] for 15 min, 3 times per week with pain rated 6/10 or less. 10/23/18: has not returned to [facility] due to being busy but is back to limited tango routines STG Duration 3 weeks Spool Carrier Goal (LTG) pt will tolerate return to [facility] for at least 30 min, 3 times per week with pain rated 4/10 or less prior to d/c. LTG Duration 6 weeks Progress Towards Goals Progress Towards Goals Slow Progress due to Activity Tolerance Slow Progress due to Medical Issues Slow Progress - Other Assessment Summary Assessment Pt is back to participating in some dancing activities, but not yet returned back to [facility] due to being restricted with time. Overall, pt's cervical ROM is improved this date, as well as improvements in UE strengthening. Pt had increased pain in the lumbosacral regions today, used kinesiotape to improve postural awareness. Pt would benefit from continued skilled physical therapy to return to improved recreational activity participation and to continue to advance cervical ROM and UE strength to provide increased musculoskeletal support and decrease pain. Recommend that pt also continue aquatic therapy to progress her strength, and hopefully establish a HEP to perform independently upon d/c . Physical Therapy Plan Frequency and Duration Frequency of Treatment 2x/Week Duration of Treatment 6 weeks Plan of Care Start Date 10/23/18 Plan of Care End Date 12/04/18 Therapeutic Interventions Therapeutic Interventions Aquatic Therapy Balance Training Coordination Training Gait Training Home Exercise Program Manual Therapy Neuromuscular Re-education Orthotic/Prosthetic Management Patient/Caregiver Education Self-Care/Home Management Soft Tissue Mobilization Taping Therapeutic Activities Therapeutic Exercises Modalities Cold Pack/Ice Massage Electric Stimulation Hot Packs Ultrasound Next Visit Focus/Plan Next Note Type Treatment Note Next Visit Plan assess tolerance to kinesiotape; progress core stabilization, UE strength and cervical ROM Plan of Care Dates Plan of Care Start Date 10/23/18 Plan of Care End Date 12/04/18 Please Sign and Return: I have reviewed this Plan of Care and certify that the skilled therapy services above are required to meet the patient?s needs. Physician Signature Date Printed Name and Credentials Clinical Instructor Signature Printed Name and Credentials
--- NOTE | 2018-10-23 09:45 | PT.OTN ---
Current Diagnoses Fibromyalgia (10/23/18) Physical Therapy Treatment Note PT-OP-A Visit Information Start: 08/21/18 15:21 Freq: Status: Active Protocol: Document 10/23/18 09:45 RCC (Rec: 10/25/18 12:17 RCC [email or web address]) Out-Patient Physical Therapy Visit Information Visit Information Visit Type Treatment Note Visit Start Time 09:45 Visit Stop Time 10:35 Total Visit Minutes 50 Visit Number 14 Number of [employer] PROFESSOR Visits 0 Evaluation Information Evaluation Date 08/21/18 Precautions Precautions Fibromyalgia PT-OP-B Current Condition Start: 08/21/18 15:21 Freq: Status: Active Protocol: Document 08/21/18 14:30 RCC (Rec: 08/21/18 15:51 RCC [email or web address]) Current Condition History of Current Condition Onset Date years of chronic pain Current Complaints CAMACHO, neck and low back pain History of Current Condition Pt is a 42 y/o female presenting to physical therapy with a c/o bilateral neck and low back pain as well as a h/ o chronic CAMACHO. She received Botox injections every 3 mos, most recently got them on Saturday08/19/18 with now improved relief of CAMACHO. She has a h/o of a brain injury in 1997, and is now seeing someone for psychological help . She does OMM with Dr. Moore 1x/mo (after getting good improvements over time). 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 Pt notes that she is doing somewhat better after Botox injections, but does admit her pain comes and goes due to her fibromyalgia. She would like to be able to do Qigong again to assist with coordination and relaxation, which she has not had time to do due to home stressors and pain. Treatment Goals Patient/Caregiver Goals return to Qigong, improve posture and decrease pain Personal Factors Other Personal Factors That May Effect h/o brain injury 1997, Therapy/Recovery fibromyalgia, depression, memory loss, back and neck pain (chronic), anxiety, hypothyroidism PT-OP-C Subjective Start: 08/21/18 15:21 Freq: Status: Active Protocol: Document 10/23/18 09:45 RCC (Rec: 10/25/18 12:17 RCC [email or web address]) OP-PT Subjective Patient Comments Patient Comments Pt reports that she again was able to do some of her Tango but not full participation. She is yet to get back to [facility] but due to being busy. PT-OP-F Manual Assessment Start: 08/21/18 15:21 Freq: Status: Active Protocol: Document 10/02/18 11:28 RCC (Rec: 10/04/18 12:49 RCC [email or web address]) Manual Assessments Soft Tissue Assessment Soft Tissue Mobility Assessment moderate tone levator, UT bilaterally, scalenes L and mild scalene R. PT-OP-J Posture/Palpation/Skin Start: 08/21/18 15:21 Freq: Status: Active Protocol: Document 08/21/18 14:30 RCC (Rec: 08/21/18 15:51 RCC [email or web address]) Posture Evaluation Comments Posture Comments severe forward head, moderate rounded shoulders, increased thoracic kyphosis in sitting PT-OP-K Range of Motion Start: 08/21/18 15:21 Freq: Status: Active Protocol: Document 10/23/18 09:45 RCC (Rec: 10/25/18 12:17 RCC [email or web address]) Cervical Spine Range of Motion Cervical Spine Active Degrees Testing Position Sitting Flexion 55 Extension 50 Rotation Left 75 Rotation Right 75 Lateral Flexion Left 32 Lateral Flexion Right 36 ROM Limitations Soft Tissue Tightness Muscle Tone Pain PT-OP-L Special Tests Start: 08/21/18 15:21 Freq: Status: Active Protocol: Document 08/21/18 14:30 RCC (Rec: 08/21/18 15:51 RCC [email or web address]) Special Tests Cervical Spine Special Tests Slump Test Results increases tension Spurling's Test Test Results positive B Lumbar Spine Special Tests Straight Leg Raise Test Results negative B PT-OP-M Strength Start: 08/21/18 15:21 Freq: Status: Active Protocol: Document 10/23/18 09:45 RCC (Rec: 10/25/18 12:17 RCC [email or web address]) Shoulder Strength Shoulder Manual Muscle Testing Right Flexion 4 Good Abduction (C5) 4+ Good+ External Rotation 4 Good Internal Rotation 5 Normal Left Flexion 5 Normal Abduction (C5) 4+ Good+ External Rotation 4+ Good+ Internal Rotation 5 Normal Elbow/Forearm Strength Elbow and Forearm Manual Muscle Testing Right Flexion (C6) 5 Normal Extension (C7) 4+ Good+ Left Flexion (C6) 5 Normal Extension (C7) 5 Normal PT-OP-Q Treatments Start: 08/21/18 15:21 Freq: Status: Active Protocol: Document 10/23/18 09:45 RCC (Rec: 10/25/18 12:17 RCC [email or web address]) Manual Therapy Treatment Soft Tissue Mobilization B QL, lumbar paraspinals, gluteals Mobilization Type Myofascial Release Rolling Intensity/Depth Moderate Body Position Sidelying thoracic paraspinals Mobilization Type Myofascial Release Rolling Intensity/Depth Moderate Body Position Sidelying Taping SI/lumbar, scapula Type of Tape Kinesio Tape Comments I strip anterior shoulder over scapula for posture; I strip lumbar paraspinals, X over L PSIS Other Other Manual Treatments cervical ROM, UE MMT- 10 min PT-OP-R Modalities Start: 08/21/18 15:21 Freq: Status: Active Protocol: Document 10/23/18 09:45 RCC (Rec: 10/25/18 12:17 RCC [email or web address]) Hot Pack/Cold Pack Treatment Cold Pack Location thoracic and lumbar Patient Position Hooklying Treatment Duration (minutes) 15 Patient Tolerance Good Comments performed with MHP moist heat Location cervical Patient Position Hooklying Treatment Duration (minutes) 15 Comments performed with CP PT-OP-S Aquatic Treatment Start: 08/21/18 15:21 Freq: Status: Active Protocol: Document 09/15/18 17:31 [facility] (Rec: 09/15/18 17:41 [facility] [id number]) Aquatics Treatment Water Walking fwd,bck, , july Water Level Chest Level Comments postural cues Lower Extremity Exercises hip circles Body Position Standing Water Level Chest Level Lower Extremity Stretches DKTC, SKTC Body Position Standing Water Level [place] Equipment wall Upper Extremity Exercises shoulder hor ab/ad, flex/ext Details fredi and unil Body Position Standing Water Level Chest Level Comments emphasis on core stabilization Spinal Exercises deep water hang Body Position Standing Water Level [place] Equipment wall Reps/Duration 3x 2 min Comments with deep breathing [place] Activities [place] Activities Bicycle Cross Country Running Comments slow, mod verbal and manual cues for postural alignment PT-OP-T Assessment and Plan Start: 08/21/18 15:21 Freq: Status: Active Protocol: Document 10/23/18 09:45 RCC (Rec: 10/25/18 12:17 RCC [email or web address]) Physical Therapy Assessment Goals cervical spine ROM Impairment decreased cervical spine ROM Jail Goal (LTG) cervical spine ROM flexion to 60 degrees extension to 50 degrees sidebending to 40 degrees bilaterally rotation to 80 degrees bilaterally 6/13/19: good progress LTG Duration 6 weeks posture Impairment sitting posture Information Security Associate Goal (LTG) Pt will demonstrate proper seated posture with neutral head, shoulders and slight to no thoracic kyphosis for 5 min without cuing prior to d/c to decrease overall cervicothoracic muscle tone. 10/23/18: not tested LTG Duration 6 weeks UE weakness Impairment UE weakness Short Term Goal (STG) Pt will demonstrate bilateral shoulder and elbow strength of 4+/5 or greater with all major muscle groups. 10/23/18: good progress STG Duration 3 weeks Jail Goal (LTG) Pt will demonstrate bilateral shoulder and elbow strength of 5/5 or greater with all major muscle groups. LTG Duration 6 weeks Recreational activities Impairment unable to participate in recreational activities Short Term Goal (STG) pt will tolerate return to [facility] for 15 min, 3 times per week with pain rated 6/10 or less. 10/23/18: has not returned to [facility] due to being busy but is back to limited tango routines STG Duration 3 weeks Information Security Associate Goal (LTG) pt will tolerate return to [place] for at least 30 min, 3 times per week with pain rated 4/10 or less prior to d/c. LTG Duration 6 weeks Progress Towards Goals Progress Towards Goals Slow Progress due to Activity Tolerance Slow Progress due to Medical Issues Slow Progress - Other Assessment Summary Assessment Pt is back to participating in some dancing activities, but not yet returned back to [facility] due to being restricted with time. Overall, pt's cervical ROM is improved this date, as well as improvements in UE strengthening. Pt had increased pain in the lumbosacral regions today, used kinesiotape to improve postural awareness. Pt would benefit from continued skilled physical therapy to return to improved recreational activity participation and to continue to advance cervical ROM and UE strength to provide increased musculoskeletal support and decrease pain. Recommend that pt also continue aquatic therapy to progress her strength, and hopefully establish a HEP to perform independently upon d/c . Physical Therapy Plan Frequency and Duration Frequency of Treatment 2x/Week Duration of Treatment 6 weeks Plan of Care Start Date 10/23/18 Plan of Care End Date 12/04/18 Therapeutic Interventions Therapeutic Interventions Aquatic Therapy Balance Training Coordination Training Gait Training Home Exercise Program Manual Therapy Neuromuscular Re-education Orthotic/Prosthetic Management Patient/Caregiver Education Self-Care/Home Management Soft Tissue Mobilization Taping Therapeutic Activities Therapeutic Exercises Modalities Cold Pack/Ice Massage Electric Stimulation Hot Packs Ultrasound Next Visit Focus/Plan Next Note Type Treatment Note Next Visit Plan assess tolerance to kinesiotape; progress core stabilization, UE strength and cervical ROM
--- NOTE | 2018-10-28 10:30 | PT.OTN ---
Current Diagnoses Fibromyalgia (10/28/18) Physical Therapy Treatment Note PT-OP-A Visit Information Start: 08/21/18 15:21 Freq: Status: Active Protocol: Document 10/28/18 10:30 GGD (Rec: 10/28/18 10:32 GGD [email or web address]) Out-Patient Physical Therapy Visit Information Visit Information Visit Type Treatment Note Visit Start Time 09:45 Visit Stop Time 10:40 Total Visit Minutes 55 Visit Number 15 Number of STONE POLISHER HAND Visits 1 Evaluation Information Evaluation Date 08/21/18 PT-OP-B Current Condition Start: 08/21/18 15:21 Freq: Status: Active Protocol: Document 08/21/18 14:30 RCC (Rec: 08/21/18 15:51 RCC [email or web address]) Current Condition History of Current Condition Onset Date years of chronic pain Current Complaints CAMACHO, neck and low back pain History of Current Condition Pt is a 42 y/o female presenting to physical therapy with a c/o bilateral neck and low back pain as well as a h/ o chronic CAMACHO. She received Botox injections every 3 mos, most recently got them on Saturday08/19/18 with now improved relief of CAMACHO. She has a h/o of a brain injury in 1997, and is now seeing someone for psychological help . She does OMM with Dr. Moore 1x/mo (after getting good improvements over time). 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 Pt notes that she is doing somewhat better after Botox injections, but does admit her pain comes and goes due to her fibromyalgia. She would like to be able to do Qigong again to assist with coordination and relaxation, which she has not had time to do due to home stressors and pain. Treatment Goals Patient/Caregiver Goals return to Qigong, improve posture and decrease pain Personal Factors Other Personal Factors That May Effect h/o brain injury 1997, Therapy/Recovery fibromyalgia, depression, memory loss, back and neck pain (chronic), anxiety, hypothyroidism PT-OP-C Subjective Start: 08/21/18 15:21 Freq: Status: Active Protocol: Document 10/28/18 10:30 GGD (Rec: 10/28/18 10:32 GGD [email or web address]) OP-PT Subjective Patient Comments Patient Comments Pt states she did some dancing , but is stiff for the last two days. PT-OP-F Manual Assessment Start: 08/21/18 15:21 Freq: Status: Active Protocol: Document 10/02/18 11:28 RCC (Rec: 10/04/18 12:49 RCC [email or web address]) Manual Assessments Soft Tissue Assessment Soft Tissue Mobility Assessment moderate tone levator, UT bilaterally, scalenes L and mild scalene R. PT-OP-J Posture/Palpation/Skin Start: 08/21/18 15:21 Freq: Status: Active Protocol: Document 08/21/18 14:30 RCC (Rec: 08/21/18 15:51 RCC [email or web address]) Posture Evaluation Comments Posture Comments severe forward head, moderate rounded shoulders, increased thoracic kyphosis in sitting PT-OP-K Range of Motion Start: 08/21/18 15:21 Freq: Status: Active Protocol: Document 10/23/18 09:45 RCC (Rec: 10/25/18 12:17 RCC [email or web address]) Cervical Spine Range of Motion Cervical Spine Active Degrees Testing Position Sitting Flexion 55 Extension 50 Rotation Left 75 Rotation Right 75 Lateral Flexion Left 32 Lateral Flexion Right 36 ROM Limitations Soft Tissue Tightness Muscle Tone Pain PT-OP-L Special Tests Start: 08/21/18 15:21 Freq: Status: Active Protocol: Document 08/21/18 14:30 RCC (Rec: 08/21/18 15:51 RCC [email or web address]) Special Tests Cervical Spine Special Tests Slump Test Results increases tension Spurling's Test Test Results positive B Lumbar Spine Special Tests Straight Leg Raise Test Results negative B PT-OP-M Strength Start: 08/21/18 15:21 Freq: Status: Active Protocol: Document 10/23/18 09:45 RCC (Rec: 10/25/18 12:17 RCC [email or web address]) Shoulder Strength Shoulder Manual Muscle Testing Right Flexion 4 Good Abduction (C5) 4+ Good+ External Rotation 4 Good Internal Rotation 5 Normal Left Flexion 5 Normal Abduction (C5) 4+ Good+ External Rotation 4+ Good+ Internal Rotation 5 Normal Elbow/Forearm Strength Elbow and Forearm Manual Muscle Testing Right Flexion (C6) 5 Normal Extension (C7) 4+ Good+ Left Flexion (C6) 5 Normal Extension (C7) 5 Normal PT-OP-Q Treatments Start: 08/21/18 15:21 Freq: Status: Active Protocol: Document 10/28/18 10:30 GGD (Rec: 10/28/18 11:43 GGD [email or web address]) Cardio Equipment Upper Body Ergometer (UBE) Duration (Minutes) 6 Seat Position 11 Therapeutic Exercises Supine Exercises 4 Supine Exercise Name Traps and neck rotators stretch Reps/Minutes x 15SH x 2 reps chin tuck Supine Exercise Name chin tuck Reps/Minutes 15 x Standing Exercises row, shld ext Standing Exercise Name scapualr row Side bilateral Resistance #1 TB Reps/Minutes 15x Manual Therapy Treatment Soft Tissue Mobilization B QL, lumbar paraspinals, gluteals Mobilization Type Myofascial Release Rolling Intensity/Depth Moderate Body Position Sidelying levator, scalenes Body Location bilateral Mobilization Type Myofascial Release Rolling Intensity/Depth Superficial Body Position Hooklying 1 Body Location Suboccipitals, Upper Trap Mobilization Type Myofascial Release Rolling Intensity/Depth Superficial Body Position Hooklying Comments right PT-OP-R Modalities Start: 08/21/18 15:21 Freq: Status: Active Protocol: Document 10/28/18 10:30 GGD (Rec: 10/28/18 11:43 GGD [email or web address]) Hot Pack/Cold Pack Treatment Cold Pack Location cervical/thoracic spine Patient Position Hooklying Treatment Duration (minutes) 15 Patient Tolerance Good PT-OP-S Aquatic Treatment Start: 08/21/18 15:21 Freq: Status: Active Protocol: Document 09/15/18 17:31 SAK (Rec: 09/15/18 17:41 SAK [id number]) Aquatics Treatment Water Walking fwd,bck, , july Water Level Chest Level Comments postural cues Lower Extremity Exercises hip circles Body Position Standing Water Level Chest Level Lower Extremity Stretches DKTC, SKTC Body Position Standing Water Level [place] Equipment wall Upper Extremity Exercises shoulder hor ab/ad, flex/ext Details fredi and unil Body Position Standing Water Level Chest Level Comments emphasis on core stabilization Spinal Exercises deep water hang Body Position Standing Water Level [place] Equipment wall Reps/Duration 3x 2 min Comments with deep breathing [place] Activities [employer] Activities Bicycle Cross Country Running Comments slow, mod verbal and manual cues for postural alignment PT-OP-T Assessment and Plan Start: 08/21/18 15:21 Freq: Status: Active Protocol: Document 10/28/18 10:30 GGD (Rec: 10/28/18 11:43 GGD [email or web address]) Physical Therapy Assessment Assessment Summary Assessment Pt able to tolerate light exercise, but still limited. Pt had right > Left scalenes tenderness. Physical Therapy Plan Frequency and Duration Frequency of Treatment 2x/Week Duration of Treatment 6 weeks Plan of Care Start Date 10/23/18 Plan of Care End Date 12/04/18 Next Visit Focus/Plan Next Note Type Treatment Note Next Visit Plan assess tolerance to kinesiotape; progress core stabilization, UE strength and cervical ROM
--- NOTE | 2018-10-30 09:45 | PT.OTN ---
Current Diagnoses Fibromyalgia (10/30/18) Physical Therapy Treatment Note PT-OP-A Visit Information Start: 08/21/18 15:21 Freq: Status: Active Protocol: Document 10/30/18 09:45 DLM (Rec: 10/30/18 13:48 DLM [email or web address]) Out-Patient Physical Therapy Visit Information Visit Information Visit Type Treatment Note Visit Start Time 09:45 Visit Stop Time 10:45 Total Visit Minutes 60 Visit Number 16 Number of BLANKET FOLDER Visits 0 Evaluation Information Evaluation Date 08/21/18 Precautions Precautions Fibromyalgia PT-OP-B Current Condition Start: 08/21/18 15:21 Freq: Status: Active Protocol: Document 08/21/18 14:30 RCC (Rec: 08/21/18 15:51 RCC [email or web address]) Current Condition History of Current Condition Onset Date years of chronic pain Current Complaints CAMACHO, neck and low back pain History of Current Condition Pt is a 42 y/o female presenting to physical therapy with a c/o bilateral neck and low back pain as well as a h/ o chronic CAMACHO. She received Botox injections every 3 mos, most recently got them on Saturday08/19/18 with now improved relief of CAMACHO. She has a h/o of a brain injury in 1997, and is now seeing someone for psychological help . She does OMM with Dr. Moore 1x/mo (after getting good improvements over time). 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 Pt notes that she is doing somewhat better after Botox injections, but does admit her pain comes and goes due to her fibromyalgia. She would like to be able to do Qigong again to assist with coordination and relaxation, which she has not had time to do due to home stressors and pain. Treatment Goals Patient/Caregiver Goals return to Qigong, improve posture and decrease pain Personal Factors Other Personal Factors That May Effect h/o brain injury 1997, Therapy/Recovery fibromyalgia, depression, memory loss, back and neck pain (chronic), anxiety, hypothyroidism PT-OP-C Subjective Start: 08/21/18 15:21 Freq: Status: Active Protocol: Document 10/30/18 09:45 DLM (Rec: 10/30/18 13:48 DLM [email or web address]) OP-PT Subjective Patient Comments Patient Comments She is having a low day. She goes to court tomorrow. She is scheduled to do aquatic treatment again on 11/03/18. PT-OP-F Manual Assessment Start: 08/21/18 15:21 Freq: Status: Active Protocol: Document 10/02/18 11:28 RCC (Rec: 10/04/18 12:49 RCC [email or web address]) Manual Assessments Soft Tissue Assessment Soft Tissue Mobility Assessment moderate tone levator, UT bilaterally, scalenes L and mild scalene R. PT-OP-J Posture/Palpation/Skin Start: 08/21/18 15:21 Freq: Status: Active Protocol: Document 08/21/18 14:30 RCC (Rec: 08/21/18 15:51 RCC [email or web address]) Posture Evaluation Comments Posture Comments severe forward head, moderate rounded shoulders, increased thoracic kyphosis in sitting PT-OP-K Range of Motion Start: 08/21/18 15:21 Freq: Status: Active Protocol: Document 10/23/18 09:45 RCC (Rec: 10/25/18 12:17 RCC [email or web address]) Cervical Spine Range of Motion Cervical Spine Active Degrees Testing Position Sitting Flexion 55 Extension 50 Rotation Left 75 Rotation Right 75 Lateral Flexion Left 32 Lateral Flexion Right 36 ROM Limitations Soft Tissue Tightness Muscle Tone Pain PT-OP-L Special Tests Start: 08/21/18 15:21 Freq: Status: Active Protocol: Document 08/21/18 14:30 RCC (Rec: 08/21/18 15:51 RCC [email or web address]) Special Tests Cervical Spine Special Tests Slump Test Results increases tension Spurling's Test Test Results positive B Lumbar Spine Special Tests Straight Leg Raise Test Results negative B PT-OP-M Strength Start: 08/21/18 15:21 Freq: Status: Active Protocol: Document 10/23/18 09:45 RCC (Rec: 10/25/18 12:17 RCC [email or web address]) Shoulder Strength Shoulder Manual Muscle Testing Right Flexion 4 Good Abduction (C5) 4+ Good+ External Rotation 4 Good Internal Rotation 5 Normal Left Flexion 5 Normal Abduction (C5) 4+ Good+ External Rotation 4+ Good+ Internal Rotation 5 Normal Elbow/Forearm Strength Elbow and Forearm Manual Muscle Testing Right Flexion (C6) 5 Normal Extension (C7) 4+ Good+ Left Flexion (C6) 5 Normal Extension (C7) 5 Normal PT-OP-Q Treatments Start: 08/21/18 15:21 Freq: Status: Active Protocol: Document 10/30/18 09:45 DLM (Rec: 10/30/18 13:48 DLM [email or web address]) Cardio Equipment Upper Body Ergometer (UBE) Duration (Minutes) 6 Seat Position 11 Other 3' forward and 3' backwards Therapeutic Exercises Supine Exercises 4 Supine Exercise Name Traps and neck rotators stretch Reps/Minutes 15 Sec Hold x 2 reps chin tuck Supine Exercise Name chin tuck Reps/Minutes 10 reps Standing Exercises wall posture Standing Exercise Name full back to wall Comments added chin tucks row, shld ext Standing Exercise Name scapular retraction Side bilateral Resistance L1 Exercise band Reps/Minutes 15 reps each Manual Therapy Treatment Soft Tissue Mobilization thoracic paraspinals Mobilization Type Myofascial Release Rolling Intensity/Depth Moderate Body Position Sidelying Comments right worse than left today levator, scalenes Body Location bilateral Mobilization Type Myofascial Release Rolling Intensity/Depth Superficial Body Position Hooklying 1 Body Location Suboccipitals, Upper Trap Mobilization Type Myofascial Release Rolling Sustained Pressure Intensity/Depth Superficial Body Position Hooklying Comments right PT-OP-R Modalities Start: 08/21/18 15:21 Freq: Status: Active Protocol: Document 10/30/18 09:45 DLM (Rec: 10/30/18 13:48 DLM [email or web address]) Hot Pack/Cold Pack Treatment Cold Pack Location cervical/thoracic spine Patient Position Hooklying Treatment Duration (minutes) 15 Patient Tolerance Good Comments performed with MHP on abdomen PT-OP-S Aquatic Treatment Start: 08/21/18 15:21 Freq: Status: Active Protocol: Document 09/15/18 17:31 SAK (Rec: 09/15/18 17:41 SAK [id number]) Aquatics Treatment Water Walking fwd,bck, , july Water Level Chest Level Comments postural cues Lower Extremity Exercises hip circles Body Position Standing Water Level Chest Level Lower Extremity Stretches DKTC, SKTC Body Position Standing Water Level [place] Equipment wall Upper Extremity Exercises shoulder hor ab/ad, flex/ext Details fredi and unil Body Position Standing Water Level Chest Level Comments emphasis on core stabilization Spinal Exercises deep water hang Body Position Standing Water Level [place] Equipment wall Reps/Duration 3x 2 min Comments with deep breathing [place] Activities [place] Activities Bicycle Cross [place] Running Comments slow, mod verbal and manual cues for postural alignment PT-OP-T Assessment and Plan Start: 08/21/18 15:21 Freq: Status: Active Protocol: Document 10/30/18 09:45 DLM (Rec: 10/30/18 13:48 DLM [email or web address]) Physical Therapy Assessment Goals cervical spine ROM Impairment decreased cervical spine ROM Long-Term Goal (LTG) cervical spine ROM flexion to 60 degrees extension to 50 degrees sidebending to 40 degrees bilaterally rotation to 80 degrees bilaterally 10/23/18: good progress LTG Duration 6 weeks posture Impairment sitting posture Long-Term Goal (LTG) Pt will demonstrate proper seated posture with neutral head, shoulders and slight to no thoracic kyphosis for 5 min without cuing prior to d/c to decrease overall cervicothoracic muscle tone. 10/23/18: not tested LTG Duration 6 weeks UE weakness Impairment UE weakness Short Term Goal (STG) Pt will demonstrate bilateral shoulder and elbow strength of 4+/5 or greater with all major muscle groups. 10/23/18: good progress STG Duration 3 weeks Long-Term Goal (LTG) Pt will demonstrate bilateral shoulder and elbow strength of 5/5 or greater with all major muscle groups. LTG Duration 6 weeks Recreational activities Impairment unable to participate in recreational activities Short Term Goal (STG) pt will tolerate return to [facility] for 15 min, 3 times per week with pain rated 6/10 or less. 10/23/18: has not returned to [facility] due to being busy but is back to limited tango routines STG Duration 3 weeks Long-Term Goal (LTG) pt will tolerate return to [facility] for at least 30 min, 3 times per week with pain rated 4/10 or less prior to d/c. LTG Duration 6 weeks Assessment Summary Assessment She feels erect posture is painful for her. She describes increased stress related to going to court tomorrow and moving. Fair tolerance for exercises and manual therapy due to pain. Pt feels modalities are helpful. Pt describes skin irritation with last taping treatment so recommend holding taping. Physical Therapy Plan Frequency and Duration Frequency of Treatment 2x/Week Duration of Treatment 6 weeks Plan of Care Start Date 10/23/18 Plan of Care End Date 12/04/18 Therapeutic Interventions Therapeutic Interventions Aquatic Therapy Balance Training Coordination Training Gait Training Home Exercise Program Manual Therapy Neuromuscular Re-education Orthotic/Prosthetic Management Patient/Caregiver Education Self-Care/Home Management Soft Tissue Mobilization Taping Therapeutic Activities Therapeutic Exercises Modalities Cold Pack/Ice Massage Electric Stimulation Hot Packs Ultrasound Next Visit Focus/Plan Next Note Type Treatment Note Next Visit Plan progress core stabilization and posture
--- NOTE | 2018-11-03 15:28 | PT.OTN ---
Current Diagnoses Fibromyalgia (11/03/18) Physical Therapy Treatment Note PT-OP-A Visit Information Start: 08/21/18 15:21 Freq: Status: Active Protocol: Document 11/03/18 12:30 LJ (Rec: 11/03/18 15:28 LJ [email or web address]) Out-Patient Physical Therapy Visit Information Visit Information Visit Type Aquatic Treatment Note Visit Start Time 12:30 Visit Stop Time 13:15 Total Visit Minutes 45 Visit Number 17 Number of [employer] Visits 1 Evaluation Information Evaluation Date 08/21/18 Precautions Precautions Fibromyalgia PT-OP-B Current Condition Start: 08/21/18 15:21 Freq: Status: Active Protocol: Document 08/21/18 14:30 RCC (Rec: 08/21/18 15:51 RCC [email or web address]) Current Condition History of Current Condition Onset Date years of chronic pain Current Complaints CAMACHO, neck and low back pain History of Current Condition Pt is a 42 y/o female presenting to physical therapy with a c/o bilateral neck and low back pain as well as a h/ o chronic CAMACHO. She received Botox injections every 3 mos, most recently got them on Saturday08/19/18 with now improved relief of CAMACHO. She has a h/o of a brain injury in 1997, and is now seeing someone for psychological help . She does OMM with Dr. Moore 1x/mo (after getting good improvements over time). 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 Pt notes that she is doing somewhat better after Botox injections, but does admit her pain comes and goes due to her fibromyalgia. She would like to be able to do Qigong again to assist with coordination and relaxation, which she has not had time to do due to home stressors and pain. Treatment Goals Patient/Caregiver Goals return to Qigong, improve posture and decrease pain Personal Factors Other Personal Factors That May Effect h/o brain injury 1997, Therapy/Recovery fibromyalgia, depression, memory loss, back and neck pain (chronic), anxiety, hypothyroidism PT-OP-C Subjective Start: 08/21/18 15:21 Freq: Status: Active Protocol: Document 11/03/18 12:30 LJ (Rec: 11/03/18 15:28 LJ [email or web address]) OP-PT Subjective Patient Comments Patient Comments Pt states it took 2-3 days after last aquatic session to recover. States she was very tight in the upper traps area. PT-OP-F Manual Assessment Start: 08/21/18 15:21 Freq: Status: Active Protocol: Document 10/02/18 11:28 RCC (Rec: 10/04/18 12:49 RCC [email or web address]) Manual Assessments Soft Tissue Assessment Soft Tissue Mobility Assessment moderate tone levator, UT bilaterally, scalenes L and mild scalene R. PT-OP-J Posture/Palpation/Skin Start: 08/21/18 15:21 Freq: Status: Active Protocol: Document 08/21/18 14:30 RCC (Rec: 08/21/18 15:51 RCC [email or web address]) Posture Evaluation Comments Posture Comments severe forward head, moderate rounded shoulders, increased thoracic kyphosis in sitting PT-OP-K Range of Motion Start: 08/21/18 15:21 Freq: Status: Active Protocol: Document 10/23/18 09:45 RCC (Rec: 10/25/18 12:17 RCC [email or web address]) Cervical Spine Range of Motion Cervical Spine Active Degrees Testing Position Sitting Flexion 55 Extension 50 Rotation Left 75 Rotation Right 75 Lateral Flexion Left 32 Lateral Flexion Right 36 ROM Limitations Soft Tissue Tightness Muscle Tone Pain PT-OP-L Special Tests Start: 08/21/18 15:21 Freq: Status: Active Protocol: Document 08/21/18 14:30 RCC (Rec: 08/21/18 15:51 RCC [email or web address]) Special Tests Cervical Spine Special Tests Slump Test Results increases tension Spurling's Test Test Results positive B Lumbar Spine Special Tests Straight Leg Raise Test Results negative B PT-OP-M Strength Start: 08/21/18 15:21 Freq: Status: Active Protocol: Document 10/23/18 09:45 RCC (Rec: 10/25/18 12:17 RCC [email or web address]) Shoulder Strength Shoulder Manual Muscle Testing Right Flexion 4 Good Abduction (C5) 4+ Good+ External Rotation 4 Good Internal Rotation 5 Normal Left Flexion 5 Normal Abduction (C5) 4+ Good+ External Rotation 4+ Good+ Internal Rotation 5 Normal Elbow/Forearm Strength Elbow and Forearm Manual Muscle Testing Right Flexion (C6) 5 Normal Extension (C7) 4+ Good+ Left Flexion (C6) 5 Normal Extension (C7) 5 Normal PT-OP-Q Treatments Start: 08/21/18 15:21 Freq: Status: Active Protocol: Document 10/30/18 09:45 DLM (Rec: 10/30/18 13:48 DLM [email or web address]) Cardio Equipment Upper Body Ergometer (UBE) Duration (Minutes) 6 Seat Position 11 Other 3' forward and 3' backwards Therapeutic Exercises Supine Exercises 4 Supine Exercise Name Traps and neck rotators stretch Reps/Minutes 15 Sec Hold x 2 reps chin tuck Supine Exercise Name chin tuck Reps/Minutes 10 reps Standing Exercises wall posture Standing Exercise Name full back to wall Comments added chin tucks row, shld ext Standing Exercise Name scapular retraction Side bilateral Resistance L1 Exercise band Reps/Minutes 15 reps each Manual Therapy Treatment Soft Tissue Mobilization thoracic paraspinals Mobilization Type Myofascial Release Rolling Intensity/Depth Moderate Body Position Sidelying Comments right worse than left today levator, scalenes Body Location bilateral Mobilization Type Myofascial Release Rolling Intensity/Depth Superficial Body Position Hooklying 1 Body Location Suboccipitals, Upper Trap Mobilization Type Myofascial Release Rolling Sustained Pressure Intensity/Depth Superficial Body Position Hooklying Comments right PT-OP-R Modalities Start: 08/21/18 15:21 Freq: Status: Active Protocol: Document 10/30/18 09:45 DLM (Rec: 10/30/18 13:48 DLM [email or web address]) Hot Pack/Cold Pack Treatment Cold Pack Location cervical/thoracic spine Patient Position Hooklying Treatment Duration (minutes) 15 Patient Tolerance Good Comments performed with MHP on abdomen PT-OP-S Aquatic Treatment Start: 08/21/18 15:21 Freq: Status: Active Protocol: Document 11/03/18 12:30 LJ (Rec: 11/03/18 15:28 LJ [email or web address]) Aquatics Treatment Pool Entry/Exit Pool Entry/Exit Method Stairs Assistance Standby Assistance Verbal Cues Water Walking fwd,bck, , july Water Level Chest Level Level of Assistance Verbal Cues Lower Extremity Stretches DKTC, SKTC Water Level [place] Comments at wall Upper Extremity Exercises breast stroke arms while walking-forward and reverse Water Level Chest Level Comments gentle movements shoulder hor ab/ad, flex/ext Body Position Sitting Water Level Neck Level Comments squat against wall, gentle movements Upper Extremity Stretches reverse breaststroke Details active stretch Body Position Standing Water Level Chest Level Reps/Duration 15M Comments walking forward walking forward with paddles Details varying depths, forward Water Level Chest Level Equipment UE paddles Reps/Duration 30M Balance seated on saddle float Details lateral floatation position Body Position Sitting Water Level Chest Level Reps/Duration 5 min Comments kicking with min UE use for balance [place] Activities [place] Activities Bicycle Hip Abduction/Adduction Equipment saddle float Duration 15 min Comments very gentle movements PT-OP-T Assessment and Plan Start: 08/21/18 15:21 Freq: Status: Active Protocol: Document 11/03/18 12:30 LJ (Rec: 11/03/18 15:28 LJ [email or web address]) Physical Therapy Assessment Goals cervical spine ROM Impairment decreased cervical spine ROM Assisted Goal (LTG) cervical spine ROM flexion to 60 degrees extension to 50 degrees sidebending to 40 degrees bilaterally rotation to 80 degrees bilaterally 10/23/18: good progress LTG Duration 6 weeks posture Impairment sitting posture Licensed [employer] Dispenser Goal (LTG) Pt will demonstrate proper seated posture with neutral head, shoulders and slight to no thoracic kyphosis for 5 min without cuing prior to d/c to decrease overall cervicothoracic muscle tone. 10/23/18: not tested LTG Duration 6 weeks UE weakness Impairment UE weakness Short Term Goal (STG) Pt will demonstrate bilateral shoulder and elbow strength of 4+/5 or greater with all major muscle groups. 10/23/18: good progress STG Duration 3 weeks Assisted Goal (LTG) Pt will demonstrate bilateral shoulder and elbow strength of 5/5 or greater with all major muscle groups. LTG Duration 6 weeks Recreational activities Impairment unable to participate in recreational activities Short Term Goal (STG) pt will tolerate return to [facility] for 15 min, 3 times per week with pain rated 6/10 or less. 10/23/18: has not returned to [facility] due to being busy but is back to limited tango routines STG Duration 3 weeks Licensed Optical Dispenser Goal (LTG) pt will tolerate return to [facility] for at least 30 min, 3 times per week with pain rated 4/10 or less prior to d/c. LTG Duration 6 weeks Assessment Summary Assessment Pt requiring cuing for posture while seated on floatation saddle. Appeared to tolerate session well with no c/o increased pain. Physical Therapy Plan Frequency and Duration Frequency of Treatment 2x/Week Duration of Treatment 6 weeks Plan of Care Start Date 10/23/18 Plan of Care End Date 12/04/18 Therapeutic Interventions Therapeutic Interventions Aquatic Therapy Balance Training Coordination Training Gait Training Home Exercise Program Manual Therapy Neuromuscular Re-education Orthotic/Prosthetic Management Patient/Caregiver Education Self-Care/Home Management Soft Tissue Mobilization Taping Therapeutic Activities Therapeutic Exercises Modalities Cold Pack/Ice Massage Electric Stimulation Hot Packs Ultrasound Next Visit Focus/Plan Next Note Type Treatment Note Next Visit Plan progress core stabilization and posture
--- NOTE | 2018-11-06 12:55 | PT.OTN ---
Current Diagnoses Fibromyalgia (11/06/18) Physical Therapy Treatment Note PT-OP-A Visit Information Start: 08/21/18 15:21 Freq: Status: Active Protocol: Document 11/06/18 10:18 EA (Rec: 11/06/18 10:23 EA [id number]) Out-Patient Physical Therapy Visit Information Visit Information Visit Type Treatment Note Visit Start Time 09:45 Visit Stop Time 10:38 Total Visit Minutes 53 Visit Number 18 Number of ROPE [employer]KER Visits 0 PT-OP-B Current Condition Start: 08/21/18 15:21 Freq: Status: Active Protocol: Document 08/21/18 14:30 RCC (Rec: 08/21/18 15:51 RCC [email or web address]) Current Condition History of Current Condition Onset Date years of chronic pain Current Complaints CAMACHO, neck and low back pain History of Current Condition Pt is a 42 y/o female presenting to physical therapy with a c/o bilateral neck and low back pain as well as a h/ o chronic CAMACHO. She received Botox injections every 3 mos, most recently got them on Saturday08/19/18 with now improved relief of CAMACHO. She has a h/o of a brain injury in 1997, and is now seeing someone for psychological help . She does OMM with Dr. Moore 1x/mo (after getting good improvements over time). 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 Pt notes that she is doing somewhat better after Botox injections, but does admit her pain comes and goes due to her fibromyalgia. She would like to be able to do Qigong again to assist with coordination and relaxation, which she has not had time to do due to home stressors and pain. Treatment Goals Patient/Caregiver Goals return to Qigong, improve posture and decrease pain Personal Factors Other Personal Factors That May Effect h/o brain injury 1997, Therapy/Recovery fibromyalgia, depression, memory loss, back and neck pain (chronic), anxiety, hypothyroidism PT-OP-C Subjective Start: 08/21/18 15:21 Freq: Status: Active Protocol: Document 11/06/18 10:18 EA (Rec: 11/06/18 10:23 EA [id number]) OP-PT Subjective Patient Comments Patient Comments Pt reports feels much better today; states neck and back is what she wants to focus. She feels that cold packs to back and neck and hot packs to stomach gives better outcome to her widespread pain. PT-OP-F Manual Assessment Start: 08/21/18 15:21 Freq: Status: Active Protocol: Document 10/02/18 11:28 RCC (Rec: 10/04/18 12:49 RCC [email or web address]) Manual Assessments Soft Tissue Assessment Soft Tissue Mobility Assessment moderate tone levator, UT bilaterally, scalenes L and mild scalene R. PT-OP-J Posture/Palpation/Skin Start: 08/21/18 15:21 Freq: Status: Active Protocol: Document 08/21/18 14:30 RCC (Rec: 08/21/18 15:51 RCC [email or web address]) Posture Evaluation Comments Posture Comments severe forward head, moderate rounded shoulders, increased thoracic kyphosis in sitting PT-OP-K Range of Motion Start: 08/21/18 15:21 Freq: Status: Active Protocol: Document 10/23/18 09:45 RCC (Rec: 10/25/18 12:17 RCC [email or web address]) Cervical Spine Range of Motion Cervical Spine Active Degrees Testing Position Sitting Flexion 55 Extension 50 Rotation Left 75 Rotation Right 75 Lateral Flexion Left 32 Lateral Flexion Right 36 ROM Limitations Soft Tissue Tightness Muscle Tone Pain PT-OP-L Special Tests Start: 08/21/18 15:21 Freq: Status: Active Protocol: Document 08/21/18 14:30 RCC (Rec: 08/21/18 15:51 RCC [email or web address]) Special Tests Cervical Spine Special Tests Slump Test Results increases tension Spurling's Test Test Results positive B Lumbar Spine Special Tests Straight Leg Raise Test Results negative B PT-OP-M Strength Start: 08/21/18 15:21 Freq: Status: Active Protocol: Document 10/23/18 09:45 RCC (Rec: 10/25/18 12:17 RCC [email or web address]) Shoulder Strength Shoulder Manual Muscle Testing Right Flexion 4 Good Abduction (C5) 4+ Good+ External Rotation 4 Good Internal Rotation 5 Normal Left Flexion 5 Normal Abduction (C5) 4+ Good+ External Rotation 4+ Good+ Internal Rotation 5 Normal Elbow/Forearm Strength Elbow and Forearm Manual Muscle Testing Right Flexion (C6) 5 Normal Extension (C7) 4+ Good+ Left Flexion (C6) 5 Normal Extension (C7) 5 Normal PT-OP-Q Treatments Start: 08/21/18 15:21 Freq: Status: Active Protocol: Document 11/06/18 10:23 EA (Rec: 11/06/18 10:27 EA [id number]) Cardio Equipment Upper Body Ergometer (UBE) Duration (Minutes) 6 Seat Position 11 Other 3' forward and 3' backwards Therapeutic Exercises Sitting Exercises UT, levator stretch Side bilateral Reps/Minutes x2 each x 30 sec 3 Sitting Exercise Name pectoral strecth Standing Exercises 1 Standing Exercise Name shoulder extn Resistance Lv1 Reps/Minutes x10 reps x 2 wall posture Standing Exercise Name full back to wall w/ partial squat Reps/Minutes x 5SH x 10 reps Comments added chin tucks row, shld ext Standing Exercise Name scapular retraction Side bilateral Resistance L1 Exercise band Reps/Minutes 15 reps each Other Exercises Cat/Cow Other Exercise Name cat/cow Side bilateral Reps/Minutes x8 Comments no neck extension Manual Therapy Treatment Soft Tissue Mobilization B QL, lumbar paraspinals, gluteals Mobilization Type Myofascial Release Rolling Intensity/Depth Superficial Body Position Sidelying thoracic paraspinals Mobilization Type Myofascial Release Rolling Intensity/Depth Superficial Body Position Sidelying Comments right worse than left today 1 Body Location Suboccipitals, Upper Trap Mobilization Type Myofascial Release Rolling Sustained Pressure Intensity/Depth Superficial Body Position Hooklying PT-OP-R Modalities Start: 08/21/18 15:21 Freq: Status: Active Protocol: Document 11/06/18 10:23 EA (Rec: 11/06/18 10:27 EA [id number]) Hot Pack/Cold Pack Treatment Cold Pack Location cervical/thoracic spine Patient Position Hooklying Treatment Duration (minutes) 15 Patient Tolerance Good Comments performed with MHP on abdomen moist heat Location stomach Patient Position Supine Treatment Duration (minutes) 15 PT-OP-S Aquatic Treatment Start: 08/21/18 15:21 Freq: Status: Active Protocol: Document 11/03/18 12:30 LJ (Rec: 11/03/18 15:28 LJ [email or web address]) Aquatics Treatment Pool Entry/Exit Pool Entry/Exit Method Stairs Assistance Standby Assistance Verbal Cues Water Walking fwd,bck, july Water Level Chest Level Level of Assistance Verbal Cues Lower Extremity Stretches DKTC, SKTC Water Level [place] Comments at wall Upper Extremity Exercises breast stroke arms while walking-forward and reverse Water Level Chest Level Comments gentle movements shoulder hor ab/ad, flex/ext Body Position Sitting Water Level Neck Level Comments squat against wall, gentle movements Upper Extremity Stretches reverse breaststroke Details active stretch Body Position Standing Water Level Chest Level Reps/Duration 15M Comments walking forward walking forward with paddles Details varying depths, forward Water Level Chest Level Equipment UE paddles Reps/Duration 30M Balance seated on saddle float Details lateral floatation position Body Position Sitting Water Level Chest Level Reps/Duration 5 min Comments kicking with min UE use for balance [place] Activities [place] Activities Bicycle Hip Abduction/Adduction Equipment saddle float Duration 15 min Comments very gentle movements PT-OP-T Assessment and Plan Start: 08/21/18 15:21 Freq: Status: Active Protocol: Document 11/06/18 10:18 GER (Rec: 11/06/18 10:23 GER [id number]) Physical Therapy Assessment Assessment Summary Assessment Pt tolerated exercises well; manual therapy requires light intensity. Physical Therapy Plan Next Visit Focus/Plan Next Note Type Treatment Note Next Visit Plan progress core stabilization and posture
--- NOTE | 2018-11-10 15:55 | PT.OTN ---
Current Diagnoses Fibromyalgia (11/10/18) Physical Therapy Treatment Note PT-OP-A Visit Information Start: 08/21/18 15:21 Freq: Status: Active Protocol: Document 11/10/18 13:15 LJ (Rec: 11/10/18 15:54 LJ [email or web address]) Out-Patient Physical Therapy Visit Information Visit Information Visit Type Aquatic Treatment Note Visit Start Time 13:15 Visit Stop Time 14:00 Total Visit Minutes 45 Visit Number 19 Number of UX DESIGNER Visits 1 Precautions Precautions Fibromyalgia PT-OP-B Current Condition Start: 08/21/18 15:21 Freq: Status: Active Protocol: Document 08/21/18 14:30 RCC (Rec: 08/21/18 15:51 RCC [email or web address]) Current Condition History of Current Condition Onset Date years of chronic pain Current Complaints CAMACHO, neck and low back pain History of Current Condition Pt is a 42 y/o female presenting to physical therapy with a c/o bilateral neck and low back pain as well as a h/ o chronic CAMACHO. She received Botox injections every 3 mos, most recently got them on Saturday08/19/18 with now improved relief of CAMACHO. She has a h/o of a brain injury in 1997, and is now seeing someone for psychological help . She does OMM with Dr. Moore 1x/mo (after getting good improvements over time). 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 Pt notes that she is doing somewhat better after Botox injections, but does admit her pain comes and goes due to her fibromyalgia. She would like to be able to do Qigong again to assist with coordination and relaxation, which she has not had time to do due to home stressors and pain. Treatment Goals Patient/Caregiver Goals return to Qigong, improve posture and decrease pain Personal Factors Other Personal Factors That May Effect h/o brain injury 1997, Therapy/Recovery fibromyalgia, depression, memory loss, back and neck pain (chronic), anxiety, hypothyroidism PT-OP-C Subjective Start: 08/21/18 15:21 Freq: Status: Active Protocol: Document 11/10/18 13:15 LJ (Rec: 11/10/18 15:54 LJ [email or web address]) OP-PT Subjective Patient Comments Patient Comments Pt reports she does not have pain at the current moment. Last aquaitc therapy was tolerated well. PT-OP-F Manual Assessment Start: 08/21/18 15:21 Freq: Status: Active Protocol: Document 10/02/18 11:28 RCC (Rec: 10/04/18 12:49 RCC [email or web address]) Manual Assessments Soft Tissue Assessment Soft Tissue Mobility Assessment moderate tone levator, UT bilaterally, scalenes L and mild scalene R. PT-OP-J Posture/Palpation/Skin Start: 08/21/18 15:21 Freq: Status: Active Protocol: Document 08/21/18 14:30 RCC (Rec: 08/21/18 15:51 RCC [email or web address]) Posture Evaluation Comments Posture Comments severe forward head, moderate rounded shoulders, increased thoracic kyphosis in sitting PT-OP-K Range of Motion Start: 08/21/18 15:21 Freq: Status: Active Protocol: Document 10/23/18 09:45 RCC (Rec: 10/25/18 12:17 RCC [email or web address]) Cervical Spine Range of Motion Cervical Spine Active Degrees Testing Position Sitting Flexion 55 Extension 50 Rotation Left 75 Rotation Right 75 Lateral Flexion Left 32 Lateral Flexion Right 36 ROM Limitations Soft Tissue Tightness Muscle Tone Pain PT-OP-L Special Tests Start: 08/21/18 15:21 Freq: Status: Active Protocol: Document 08/21/18 14:30 RCC (Rec: 08/21/18 15:51 RCC [email or web address]) Special Tests Cervical Spine Special Tests Slump Test Results increases tension Spurling's Test Test Results positive B Lumbar Spine Special Tests Straight Leg Raise Test Results negative B PT-OP-M Strength Start: 08/21/18 15:21 Freq: Status: Active Protocol: Document 10/23/18 09:45 RCC (Rec: 10/25/18 12:17 RCC [email or web address]) Shoulder Strength Shoulder Manual Muscle Testing Right Flexion 4 Good Abduction (C5) 4+ Good+ External Rotation 4 Good Internal Rotation 5 Normal Left Flexion 5 Normal Abduction (C5) 4+ Good+ External Rotation 4+ Good+ Internal Rotation 5 Normal Elbow/Forearm Strength Elbow and Forearm Manual Muscle Testing Right Flexion (C6) 5 Normal Extension (C7) 4+ Good+ Left Flexion (C6) 5 Normal Extension (C7) 5 Normal PT-OP-Q Treatments Start: 08/21/18 15:21 Freq: Status: Active Protocol: Document 11/06/18 10:23 EA (Rec: 11/06/18 10:27 EA [email or web address]) Cardio Equipment Upper Body Ergometer (UBE) Duration (Minutes) 6 Seat Position 11 Other 3' forward and 3' backwards Therapeutic Exercises Sitting Exercises UT, levator stretch Side bilateral Reps/Minutes x2 each x 30 sec 3 Sitting Exercise Name pectoral strecth Standing Exercises 1 Standing Exercise Name shoulder extn Resistance Lv1 Reps/Minutes x10 reps x 2 wall posture Standing Exercise Name full back to wall w/ partial squat Reps/Minutes x 5SH x 10 reps Comments added chin tucks row, shld ext Standing Exercise Name scapular retraction Side bilateral Resistance L1 Exercise band Reps/Minutes 15 reps each Other Exercises Cat/Cow Other Exercise Name cat/cow Side bilateral Reps/Minutes x8 Comments no neck extension Manual Therapy Treatment Soft Tissue Mobilization B QL, lumbar paraspinals, gluteals Mobilization Type Myofascial Release Rolling Intensity/Depth Superficial Body Position Sidelying thoracic paraspinals Mobilization Type Myofascial Release Rolling Intensity/Depth Superficial Body Position Sidelying Comments right worse than left today 1 Body Location Suboccipitals, Upper Trap Mobilization Type Myofascial Release Rolling Sustained Pressure Intensity/Depth Superficial Body Position Hooklying PT-OP-R Modalities Start: 08/21/18 15:21 Freq: Status: Active Protocol: Document 11/06/18 10:23 EA (Rec: 11/06/18 10:27 EA [email or web address]) Hot Pack/Cold Pack Treatment Cold Pack Location cervical/thoracic spine Patient Position Hooklying Treatment Duration (minutes) 15 Patient Tolerance Good Comments performed with MHP on abdomen moist heat Location stomach Patient Position Supine Treatment Duration (minutes) 15 PT-OP-S Aquatic Treatment Start: 08/21/18 15:21 Freq: Status: Active Protocol: Document 11/10/18 13:15 EDWARD (Rec: 11/10/18 15:54 LJ [email or web address]) Aquatics Treatment Pool Entry/Exit Pool Entry/Exit Method Stairs Assistance Independent Water Walking forward walking with paddles Water Level Neck Level Walking Equipment UE paddles Comments causes pinching feeling in low back fwd,bck, , july Water Level Chest Level Level of Assistance Verbal Cues Lower Extremity Stretches DKTC, SKTC Water Level [place] Comments at wall Upper Extremity Exercises breast stroke arms while walking-forward and reverse Water Level Chest Level Comments gentle movements shoulder hor ab/ad, flex/ext Body Position Sitting Water Level Neck Level Comments squat against wall, gentle movements Upper Extremity Stretches reverse breaststroke Details active stretch Body Position Standing Water Level Chest Level Reps/Duration 15M Comments walking forward Balance seated on saddle float Details lateral floatation position Body Position Sitting Water Level Chest Level Reps/Duration 5 min Comments kicking with min UE use for balance [place] Activities [place] Activities Bicycle [place] Hip Abduction/Adduction Equipment saddle float Duration 20 Comments very gentle movements PT-OP-T Assessment and Plan Start: 08/21/18 15:21 Freq: Status: Active Protocol: Document 11/10/18 13:15 EDWARD (Rec: 11/10/18 15:54 EDWARD [email or web address]) Physical Therapy Assessment Goals cervical spine ROM Impairment decreased cervical spine ROM Intermediate Goal (LTG) cervical spine ROM flexion to 60 degrees extension to 50 degrees sidebending to 40 degrees bilaterally rotation to 80 degrees bilaterally 10/23/18: good progress LTG Duration 6 weeks posture Impairment sitting posture Shipping Receiving Manager Goal (LTG) Pt will demonstrate proper seated posture with neutral head, shoulders and slight to no thoracic kyphosis for 5 min without cuing prior to d/c to decrease overall cervicothoracic muscle tone. 10/23/18: not tested LTG Duration 6 weeks UE weakness Impairment UE weakness Short Term Goal (STG) Pt will demonstrate bilateral shoulder and elbow strength of 4+/5 or greater with all major muscle groups. 10/23/18: good progress STG Duration 3 weeks Shipping Receiving Manager Goal (LTG) Pt will demonstrate bilateral shoulder and elbow strength of 5/5 or greater with all major muscle groups. LTG Duration 6 weeks Recreational activities Impairment unable to participate in recreational activities Short Term Goal (STG) pt will tolerate return to [facility] for 15 min, 3 times per week with pain rated 6/10 or less. 10/23/18: has not returned to [facility] due to being busy but is back to limited tango routines STG Duration 3 weeks Intermediate Goal (LTG) pt will tolerate [facility] at least 30 min, 3 times per week with pain rated 4/10 or less prior to d/c. LTG Duration 6 weeks Assessment Summary Assessment Pt tolerated exercises w/o complaint other than forward walking with paddles. Requires cuing to sit with erect posture in deep water. Physical Therapy Plan Frequency and Duration Frequency of Treatment 2x/Week Duration of Treatment 6 weeks Plan of Care Start Date 10/23/18 Plan of Care End Date 12/04/18 Therapeutic Interventions Therapeutic Interventions Aquatic Therapy Balance Training Coordination Training Gait Training Home Exercise Program Manual Therapy Neuromuscular Re-education Orthotic/Prosthetic Management Patient/Caregiver Education Self-Care/Home Management Soft Tissue Mobilization Taping Therapeutic Activities Therapeutic Exercises Modalities Cold Pack/Ice Massage Electric Stimulation Hot Packs Ultrasound Next Visit Focus/Plan Next Note Type Treatment Note Next Visit Plan progress core stabilization and posture. Attempt Bad Ragaz if pt tolerates water temperature.
--- NOTE | 2018-11-11 11:27 | PT.OTN ---
Current Diagnoses Fibromyalgia (11/11/18) Physical Therapy Treatment Note PT-OP-A Visit Information Start: 08/21/18 15:21 Freq: Status: Active Protocol: Document 11/11/18 11:19 SA (Rec: 11/11/18 11:26 SA [email or web address]) Out-Patient Physical Therapy Visit Information Visit Information Visit Type Treatment Note Visit Start Time 09:00 Visit Stop Time 09:48 Total Visit Minutes 48 Visit Number 20 Number of GEODETIC SURVEY DIRECTOR Visits 2 PT-OP-B Current Condition Start: 08/21/18 15:21 Freq: Status: Active Protocol: Document 08/21/18 14:30 RCC (Rec: 08/21/18 15:51 RCC [email or web address]) Current Condition History of Current Condition Onset Date years of chronic pain Current Complaints CAMACHO, neck and low back pain History of Current Condition Pt is a 42 y/o female presenting to physical therapy with a c/o bilateral neck and low back pain as well as a h/ o chronic CAMACHO. She received Botox injections every 3 mos, most recently got them on Saturday08/19/18 with now improved relief of CAMACHO. She has a h/o of a brain injury in 1997, and is now seeing someone for psychological help . She does OMM with Dr. Moore 1x/mo (after getting good improvements over time). 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 Pt notes that she is doing somewhat better after Botox injections, but does admit her pain comes and goes due to her fibromyalgia. She would like to be able to do Qigong again to assist with coordination and relaxation, which she has not had time to do due to home stressors and pain. Treatment Goals Patient/Caregiver Goals return to Qigong, improve posture and decrease pain Personal Factors Other Personal Factors That May Effect h/o brain injury 1997, Therapy/Recovery fibromyalgia, depression, memory loss, back and neck pain (chronic), anxiety, hypothyroidism PT-OP-C Subjective Start: 08/21/18 15:21 Freq: Status: Active Protocol: Document 11/11/18 11:19 SA (Rec: 11/11/18 11:26 SA [email or web address]) OP-PT Subjective Patient Comments Patient Comments Pt stated aquatic treatment was a little better than the first time. Notes some soreness today through low back. PT-OP-F Manual Assessment Start: 08/21/18 15:21 Freq: Status: Active Protocol: Document 10/02/18 11:28 RCC (Rec: 10/04/18 12:49 RCC [email or web address]) Manual Assessments Soft Tissue Assessment Soft Tissue Mobility Assessment moderate tone levator, UT bilaterally, scalenes L and mild scalene R. PT-OP-J Posture/Palpation/Skin Start: 08/21/18 15:21 Freq: Status: Active Protocol: Document 08/21/18 14:30 RCC (Rec: 08/21/18 15:51 RCC [email or web address]) Posture Evaluation Comments Posture Comments severe forward head, moderate rounded shoulders, increased thoracic kyphosis in sitting PT-OP-K Range of Motion Start: 08/21/18 15:21 Freq: Status: Active Protocol: Document 10/23/18 09:45 RCC (Rec: 10/25/18 12:17 RCC [email or web address]) Cervical Spine Range of Motion Cervical Spine Active Degrees Testing Position Sitting Flexion 55 Extension 50 Rotation Left 75 Rotation Right 75 Lateral Flexion Left 32 Lateral Flexion Right 36 ROM Limitations Soft Tissue Tightness Muscle Tone Pain PT-OP-L Special Tests Start: 08/21/18 15:21 Freq: Status: Active Protocol: Document 08/21/18 14:30 RCC (Rec: 08/21/18 15:51 RCC [email or web address]) Special Tests Cervical Spine Special Tests Slump Test Results increases tension Spurling's Test Test Results positive B Lumbar Spine Special Tests Straight Leg Raise Test Results negative B PT-OP-M Strength Start: 08/21/18 15:21 Freq: Status: Active Protocol: Document 10/23/18 09:45 RCC (Rec: 10/25/18 12:17 RCC [email or web address]) Shoulder Strength Shoulder Manual Muscle Testing Right Flexion 4 Good Abduction (C5) 4+ Good+ External Rotation 4 Good Internal Rotation 5 Normal Left Flexion 5 Normal Abduction (C5) 4+ Good+ External Rotation 4+ Good+ Internal Rotation 5 Normal Elbow/Forearm Strength Elbow and Forearm Manual Muscle Testing Right Flexion (C6) 5 Normal Extension (C7) 4+ Good+ Left Flexion (C6) 5 Normal Extension (C7) 5 Normal PT-OP-Q Treatments Start: 08/21/18 15:21 Freq: Status: Active Protocol: Document 11/11/18 11:19 SA (Rec: 11/11/18 11:26 SA [email or web address]) Cardio Equipment Upper Body Ergometer (UBE) Duration (Minutes) 6 RPM 30 Other 3' forward and 3' backwards Therapeutic Exercises Supine Exercises Thoracic EXT stretch Side bilateral Equipment Used foam roll Reps/Minutes 3 min Sitting Exercises UT, levator stretch Side bilateral Reps/Minutes x2 each x 30 sec 3 Sitting Exercise Name pectoral strecth Standing Exercises 1 Standing Exercise Name shoulder extn Resistance lv 2 Reps/Minutes x10 reps x 2 row, shld ext Standing Exercise Name scapular retraction Resistance L2 Exercise band Reps/Minutes 15 reps each Other Exercises Child's pose Other Exercise Name netural and bias to L and R Side bilateral Reps/Minutes 30 sec x2 each Cat/Cow Other Exercise Name cat/cow Side bilateral Reps/Minutes x8 Comments no neck extension Manual Therapy Treatment Soft Tissue Mobilization B QL, lumbar paraspinals, gluteals Mobilization Type Myofascial Release Rolling Intensity/Depth Superficial Body Position Sidelying thoracic paraspinals Mobilization Type Myofascial Release Rolling Intensity/Depth Superficial Body Position Sidelying Comments right worse than left today PT-OP-R Modalities Start: 08/21/18 15:21 Freq: Status: Active Protocol: Document 11/11/18 11:19 SA (Rec: 11/11/18 11:26 SA [email or web address]) Hot Pack/Cold Pack Treatment Cold Pack Location cervical/thoracic spine Patient Position Hooklying Treatment Duration (minutes) 15 Patient Tolerance Good Comments performed with MHP on abdomen moist heat Location stomach Patient Position Supine Treatment Duration (minutes) 15 PT-OP-S Aquatic Treatment Start: 08/21/18 15:21 Freq: Status: Active Protocol: Document 11/10/18 13:15 EDWARD (Rec: 11/10/18 15:54 LJ [email or web address]) Aquatics Treatment Pool Entry/Exit Pool Entry/Exit Method Stairs Assistance Independent Water Walking forward walking with paddles Water Level Neck Level Walking Equipment UE paddles Comments causes pinching feeling in low back fwd,bck, july Water Level Chest Level Level of Assistance Verbal Cues Lower Extremity Stretches DKTC, SKTC Water Level [place] Comments at wall Upper Extremity Exercises breast stroke arms while walking-forward and reverse Water Level Chest Level Comments gentle movements shoulder hor ab/ad, flex/ext Body Position Sitting Water Level Neck Level Comments squat against wall, gentle movements Upper Extremity Stretches reverse breaststroke Details active stretch Body Position Standing Water Level Chest Level Reps/Duration 15M Comments walking forward Balance seated on saddle float Details lateral floatation position Body Position Sitting Water Level Chest Level Reps/Duration 5 min Comments kicking with min UE use for balance [place] Activities [place] Activities Bicycle [place] Hip Abduction/Adduction Equipment saddle float Duration 20 Comments very gentle movements PT-OP-T Assessment and Plan Start: 08/21/18 15:21 Freq: Status: Active Protocol: Document 11/11/18 11:19 SA (Rec: 11/11/18 11:26 SA [email or web address]) Physical Therapy Assessment Assessment Summary Assessment Pt tolerated therex/stretching well, plans to do supine thoracic ext stretch at home as, admits to not doing HEP daily. Physical Therapy Plan Next Visit Focus/Plan Next Note Type Treatment Note Next Visit Plan Progress core strength, posture as tolerated.
--- NOTE | 2018-11-17 15:33 | PT.OTN ---
Current Diagnoses Fibromyalgia (11/17/18) Physical Therapy Treatment Note PT-OP-A Visit Information Start: 08/21/18 15:21 Freq: Status: Active Protocol: Document 11/17/18 13:00 LJ (Rec: 11/17/18 15:32 LJ [email or web address]) Out-Patient Physical Therapy Visit Information Visit Information Visit Type Aquatic Treatment Note Visit Start Time 13:00 Visit Stop Time 13:45 Total Visit Minutes 45 Visit Number 21 Number of COMMUNICATIONS ASSISTANT Visits 3 Precautions Precautions Fibromyalgia PT-OP-B Current Condition Start: 08/21/18 15:21 Freq: Status: Active Protocol: Document 08/21/18 14:30 RCC (Rec: 08/21/18 15:51 RCC [email or web address]) Current Condition History of Current Condition Onset Date years of chronic pain Current Complaints CAMACHO, neck and low back pain History of Current Condition Pt is a 42 y/o female presenting to physical therapy with a c/o bilateral neck and low back pain as well as a h/ o chronic CAMACHO. She received Botox injections every 3 mos, most recently got them on Saturday08/19/18 with now improved relief of CAMACHO. She has a h/o of a brain injury in 1997, and is now seeing someone for psychological help . She does OMM with Dr. Moore 1x/mo (after getting good improvements over time). 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 Pt notes that she is doing somewhat better after Botox injections, but does admit her pain comes and goes due to her fibromyalgia. She would like to be able to do Qigong again to assist with coordination and relaxation, which she has not had time to do due to home stressors and pain. Treatment Goals Patient/Caregiver Goals return to Qigong, improve posture and decrease pain Personal Factors Other Personal Factors That May Effect h/o brain injury 1997, Therapy/Recovery fibromyalgia, depression, memory loss, back and neck pain (chronic), anxiety, hypothyroidism PT-OP-C Subjective Start: 08/21/18 15:21 Freq: Status: Active Protocol: Document 11/17/18 13:00 LJ (Rec: 11/17/18 15:32 LJ [email or web address]) OP-PT Subjective Patient Comments Patient Comments Pt reports having botox injections several days ago in UTs and cervical area as well as in scalp. She states that is didn't help much and wants to stop using medications for medical issues. PT-OP-F Manual Assessment Start: 08/21/18 15:21 Freq: Status: Active Protocol: Document 10/02/18 11:28 RCC (Rec: 10/04/18 12:49 RCC [email or web address]) Manual Assessments Soft Tissue Assessment Soft Tissue Mobility Assessment moderate tone levator, UT bilaterally, scalenes L and mild scalene R. PT-OP-J Posture/Palpation/Skin Start: 08/21/18 15:21 Freq: Status: Active Protocol: Document 08/21/18 14:30 RCC (Rec: 08/21/18 15:51 RCC [email or web address]) Posture Evaluation Comments Posture Comments severe forward head, moderate rounded shoulders, increased thoracic kyphosis in sitting PT-OP-K Range of Motion Start: 08/21/18 15:21 Freq: Status: Active Protocol: Document 10/23/18 09:45 RCC (Rec: 10/25/18 12:17 RCC [email or web address]) Cervical Spine Range of Motion Cervical Spine Active Degrees Testing Position Sitting Flexion 55 Extension 50 Rotation Left 75 Rotation Right 75 Lateral Flexion Left 32 Lateral Flexion Right 36 ROM Limitations Soft Tissue Tightness Muscle Tone Pain PT-OP-L Special Tests Start: 08/21/18 15:21 Freq: Status: Active Protocol: Document 08/21/18 14:30 RCC (Rec: 08/21/18 15:51 RCC [email or web address]) Special Tests Cervical Spine Special Tests Slump Test Results increases tension Spurling's Test Test Results positive B Lumbar Spine Special Tests Straight Leg Raise Test Results negative B PT-OP-M Strength Start: 08/21/18 15:21 Freq: Status: Active Protocol: Document 10/23/18 09:45 RCC (Rec: 10/25/18 12:17 RCC [email or web address]) Shoulder Strength Shoulder Manual Muscle Testing Right Flexion 4 Good Abduction (C5) 4+ Good+ External Rotation 4 Good Internal Rotation 5 Normal Left Flexion 5 Normal Abduction (C5) 4+ Good+ External Rotation 4+ Good+ Internal Rotation 5 Normal Elbow/Forearm Strength Elbow and Forearm Manual Muscle Testing Right Flexion (C6) 5 Normal Extension (C7) 4+ Good+ Left Flexion (C6) 5 Normal Extension (C7) 5 Normal PT-OP-Q Treatments Start: 08/21/18 15:21 Freq: Status: Active Protocol: Document 11/11/18 11:19 (Rec: 11/11/18 11:26 [email or web address]) Cardio Equipment Upper Body Ergometer (UBE) Duration (Minutes) 6 RPM 30 Other 3' forward and 3' backwards Therapeutic Exercises Supine Exercises Thoracic EXT stretch Side bilateral Equipment Used foam roll Reps/Minutes 3 min Sitting Exercises UT, levator stretch Side bilateral Reps/Minutes x2 each x 30 sec 3 Sitting Exercise Name pectoral strecth Standing Exercises 1 Standing Exercise Name shoulder extn Resistance lv 2 Reps/Minutes x10 reps x 2 row, shld ext Standing Exercise Name scapular retraction Resistance L2 Exercise band Reps/Minutes 15 reps each Other Exercises Child's pose Other Exercise Name netural and bias to L and R Side bilateral Reps/Minutes 30 sec x2 each Cat/Cow Other Exercise Name cat/cow Side bilateral Reps/Minutes x8 Comments no neck extension Manual Therapy Treatment Soft Tissue Mobilization B QL, lumbar paraspinals, gluteals Mobilization Type Myofascial Release Rolling Intensity/Depth Superficial Body Position Sidelying thoracic paraspinals Mobilization Type Myofascial Release Rolling Intensity/Depth Superficial Body Position Sidelying Comments right worse than left today PT-OP-R Modalities Start: 08/21/18 15:21 Freq: Status: Active Protocol: Document 11/11/18 11:19 (Rec: 11/11/18 11:26 SA [email or web address]) Hot Pack/Cold Pack Treatment Cold Pack Location cervical/thoracic spine Patient Position Hooklying Treatment Duration (minutes) 15 Patient Tolerance Good Comments performed with MHP on abdomen moist heat Location stomach Patient Position Supine Treatment Duration (minutes) 15 PT-OP-S Aquatic Treatment Start: 08/21/18 15:21 Freq: Status: Active Protocol: Document 11/17/18 13:00 EDWARD (Rec: 11/17/18 15:32 LJ [email or web address]) Aquatics Treatment Pool Entry/Exit Pool Entry/Exit Method Stairs Assistance Independent Water Walking forward walking with paddles Water Level Neck Level Walking Equipment UE paddles Comments no pain this time fwd,bck, , july Water Level Chest Level Level of Assistance Verbal Cues Comments arms below 90* Lower Extremity Stretches DKTC, SKTC Water Level [place] Reps/Duration 1 min each side Comments at wall Upper Extremity Exercises breast stroke arms while walking-forward and reverse Water Level Chest Level Comments gentle movements shoulder hor ab/ad, flex/ext Body Position Sitting Water Level Neck Level Comments hand hold on wall when needed Upper Extremity Stretches UT, SCM Body Position Standing Water Level Neck Level Reps/Duration 1 min bilat Comments R>L pain with gentle massage Balance seated on saddle float Details lateral floatation position Body Position Sitting Water Level Chest Level Reps/Duration 5 min Comments kicking with min UE use for balance [place] Activities [place] Activities Bicycle [place] Hip Abduction/Adduction Equipment saddle float Duration 15 Comments cues for extending LEs rather than riding recumbant style Manual Techniques Aquatic Massage during gentle stretching R>L pain and tightness PT-OP-T Assessment and Plan Start: 08/21/18 15:21 Freq: Status: Active Protocol: Document 11/17/18 13:00 EDWARD (Rec: 11/17/18 15:32 EDWARD [email or web address]) Physical Therapy Assessment Goals cervical spine ROM Impairment decreased cervical spine ROM Eyelet Row Marker Goal (LTG) cervical spine ROM flexion to 60 degrees extension to 50 degrees sidebending to 40 degrees bilaterally rotation to 80 degrees bilaterally 10/23/18: good progress LTG Duration 6 weeks posture Impairment sitting posture Eyelet Row Marker Goal (LTG) Pt will demonstrate proper seated posture with neutral head, shoulders and slight to no thoracic kyphosis for 5 min without cuing prior to d/c to decrease overall cervicothoracic muscle tone. 10/23/18: not tested LTG Duration 6 weeks UE weakness Impairment UE weakness Short Term Goal (STG) Pt will demonstrate bilateral shoulder and elbow strength of 4+/5 or greater with all major muscle groups. 10/23/18: good progress STG Duration 3 weeks Fpc Goal (LTG) Pt will demonstrate bilateral shoulder and elbow strength of 5/5 or greater with all major muscle groups. LTG Duration 6 weeks Recreational activities Impairment unable to participate in recreational activities Short Term Goal (STG) pt will tolerate return to Qigong for 15 min, 3 times per week with pain rated 6/10 or less. 10/23/18: has not returned to Qigong due to being busy but is back to limited tango routines STG Duration 3 weeks Eyelet Row Marker Goal (LTG) pt will tolerate return to Qigoan for at least 30 min, 3 times per week with pain rated 4/10 or less prior to d/c. LTG Duration 6 weeks Assessment Summary Assessment Pt tolerated slight increase in exercise today. Requires cuing for posture and core mm activation as well as extending LEs in deep water exercises. Physical Therapy Plan Frequency and Duration Frequency of Treatment 2x/Week Duration of Treatment 6 weeks Plan of Care Start Date 10/23/18 Plan of Care End Date 12/04/18 Therapeutic Interventions Therapeutic Interventions Aquatic Therapy Balance Training Coordination Training Gait Training Home Exercise Program Manual Therapy Neuromuscular Re-education Orthotic/Prosthetic Management Patient/Caregiver Education Self-Care/Home Management Soft Tissue Mobilization Taping Therapeutic Activities Therapeutic Exercises Modalities Cold Pack/Ice Massage Electric Stimulation Hot Packs Ultrasound Next Visit Focus/Plan Next Note Type Treatment Note Next Visit Plan Progress core strength to improve posture and decrease pain. Attempt Bad Ragaz if pt not too cold
--- NOTE | 2018-11-21 11:41 | PT.OTN ---
Current Diagnoses Fibromyalgia (11/21/18) Physical Therapy Treatment Note PT-OP-A Visit Information Start: 08/21/18 15:21 Freq: Status: Active Protocol: Document 11/21/18 11:37 SA (Rec: 11/21/18 11:41 SA [email or web address]) Out-Patient Physical Therapy Visit Information Visit Information Visit Type Treatment Note Visit Start Time 09:45 Visit Stop Time 10:15 Total Visit Minutes 45 Visit Number 22 Number of CORE SETTER Visits 4 PT-OP-B Current Condition Start: 08/21/18 15:21 Freq: Status: Active Protocol: Document 08/21/18 14:30 RCC (Rec: 08/21/18 15:51 RCC [email or web address]) Current Condition History of Current Condition Onset Date years of chronic pain Current Complaints CAMACHO, neck and low back pain History of Current Condition Pt is a 42 y/o female presenting to physical therapy with a c/o bilateral neck and low back pain as well as a h/ o chronic CAMACHO. She received Botox injections every 3 mos, most recently got them on Saturday08/19/18 with now improved relief of CAMACHO. She has a h/o of a brain injury in 1997, and is now seeing someone for psychological help . She does OMM with Dr. Moore 1x/mo (after getting good improvements over time). 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 Pt notes that she is doing somewhat better after Botox injections, but does admit her pain comes and goes due to her fibromyalgia. She would like to be able to do Qigong again to assist with coordination and relaxation, which she has not had time to do due to home stressors and pain. Treatment Goals Patient/Caregiver Goals return to Qigong, improve posture and decrease pain Personal Factors Other Personal Factors That May Effect h/o brain injury 1997, Therapy/Recovery fibromyalgia, depression, memory loss, back and neck pain (chronic), anxiety, hypothyroidism PT-OP-C Subjective Start: 08/21/18 15:21 Freq: Status: Active Protocol: Document 11/21/18 11:37 SA (Rec: 11/21/18 11:41 SA [email or web address]) OP-PT Subjective Patient Comments Patient Comments Pt feeling flared up today, central low back pain is biggest complaint. PT-OP-F Manual Assessment Start: 08/21/18 15:21 Freq: Status: Active Protocol: Document 10/02/18 11:28 RCC (Rec: 10/04/18 12:49 RCC [email or web address]) Manual Assessments Soft Tissue Assessment Soft Tissue Mobility Assessment moderate tone levator, UT bilaterally, scalenes L and mild scalene R. PT-OP-J Posture/Palpation/Skin Start: 08/21/18 15:21 Freq: Status: Active Protocol: Document 08/21/18 14:30 RCC (Rec: 08/21/18 15:51 RCC [email or web address]) Posture Evaluation Comments Posture Comments severe forward head, moderate rounded shoulders, increased thoracic kyphosis in sitting PT-OP-K Range of Motion Start: 08/21/18 15:21 Freq: Status: Active Protocol: Document 10/23/18 09:45 RCC (Rec: 10/25/18 12:17 RCC [email or web address]) Cervical Spine Range of Motion Cervical Spine Active Degrees Testing Position Sitting Flexion 55 Extension 50 Rotation Left 75 Rotation Right 75 Lateral Flexion Left 32 Lateral Flexion Right 36 ROM Limitations Soft Tissue Tightness Muscle Tone Pain PT-OP-L Special Tests Start: 08/21/18 15:21 Freq: Status: Active Protocol: Document 08/21/18 14:30 RCC (Rec: 08/21/18 15:51 RCC [email or web address]) Special Tests Cervical Spine Special Tests Slump Test Results increases tension Spurling's Test Test Results positive B Lumbar Spine Special Tests Straight Leg Raise Test Results negative B PT-OP-M Strength Start: 08/21/18 15:21 Freq: Status: Active Protocol: Document 10/23/18 09:45 RCC (Rec: 10/25/18 12:17 RCC [email or web address]) Shoulder Strength Shoulder Manual Muscle Testing Right Flexion 4 Good Abduction (C5) 4+ Good+ External Rotation 4 Good Internal Rotation 5 Normal Left Flexion 5 Normal Abduction (C5) 4+ Good+ External Rotation 4+ Good+ Internal Rotation 5 Normal Elbow/Forearm Strength Elbow and Forearm Manual Muscle Testing Right Flexion (C6) 5 Normal Extension (C7) 4+ Good+ Left Flexion (C6) 5 Normal Extension (C7) 5 Normal PT-OP-Q Treatments Start: 08/21/18 15:21 Freq: Status: Active Protocol: Document 11/11/18 11:19 SA (Rec: 11/11/18 11:26 SA [email or web address]) Cardio Equipment Upper Body Ergometer (UBE) Duration (Minutes) 6 RPM 30 Other 3' forward and 3' backwards Therapeutic Exercises Supine Exercises Thoracic EXT stretch Side bilateral Equipment Used foam roll Reps/Minutes 3 min Sitting Exercises UT, levator stretch Side bilateral Reps/Minutes x2 each x 30 sec 3 Sitting Exercise Name pectoral strecth Standing Exercises 1 Standing Exercise Name shoulder extn Resistance lv 2 Reps/Minutes x10 reps x 2 row, shld ext Standing Exercise Name scapular retraction Resistance L2 Exercise band Reps/Minutes 15 reps each Other Exercises Child's pose Other Exercise Name netural and bias to L and R Side bilateral Reps/Minutes 30 sec x2 each Cat/Cow Other Exercise Name cat/cow Side bilateral Reps/Minutes x8 Comments no neck extension Manual Therapy Treatment Soft Tissue Mobilization B QL, lumbar paraspinals, gluteals Mobilization Type Myofascial Release Rolling Intensity/Depth Superficial Body Position Sidelying thoracic paraspinals Mobilization Type Myofascial Release Rolling Intensity/Depth Superficial Body Position Sidelying Comments right worse than left today PT-OP-R Modalities Start: 08/21/18 15:21 Freq: Status: Active Protocol: Document 11/21/18 11:37 SA (Rec: 11/21/18 11:41 SA [email or web address]) Hot Pack/Cold Pack Treatment Cold Pack Location cervical/thoracic spine Patient Position Hooklying Treatment Duration (minutes) 15 Patient Tolerance Good Comments performed with MHP on abdomen moist heat Location stomach Patient Position Supine Treatment Duration (minutes) 15 PT-OP-S Aquatic Treatment Start: 08/21/18 15:21 Freq: Status: Active Protocol: Document 11/17/18 13:00 EDWARD (Rec: 11/17/18 15:32 LJ [email or web address]) Aquatics Treatment Pool Entry/Exit Pool Entry/Exit Method Stairs Assistance Independent Water Walking forward walking with paddles Water Level Neck Level Walking Equipment UE paddles Comments no pain this time fwd,bck, , july Water Level Chest Level Level of Assistance Verbal Cues Comments arms below 90* Lower Extremity Stretches DKTC, SKTC Water Level [place] Reps/Duration 1 min each side Comments at wall Upper Extremity Exercises breast stroke arms while walking-forward and reverse Water Level Chest Level Comments gentle movements shoulder hor ab/ad, flex/ext Body Position Sitting Water Level Neck Level Comments hand hold on wall when needed Upper Extremity Stretches UT, SCM Body Position Standing Water Level Neck Level Reps/Duration 1 min bilat Comments R>L pain with gentle massage Balance seated on saddle float Details lateral floatation position Body Position Sitting Water Level Chest Level Reps/Duration 5 min Comments kicking with min UE use for balance [place] Activities [place] Activities Bicycle [place] Hip Abduction/Adduction Equipment saddle float Duration 15 Comments cues for extending LEs rather than riding recumbant style Manual Techniques Aquatic Massage during gentle stretching R>L pain and tightness PT-OP-T Assessment and Plan Start: 08/21/18 15:21 Freq: Status: Active Protocol: Document 11/21/18 11:37 SA (Rec: 11/21/18 11:41 SA [email or web address]) Physical Therapy Assessment Assessment Summary Assessment Pt tolerated less exercise today with c/o LB pain. Responded well to STM. Is not consistent with HEP. Physical Therapy Plan Next Visit Focus/Plan Next Note Type Treatment Note Next Visit Plan Progress core strength to improve posture and decrease pain. Attempt Bad Ragaz if pt not too cold
--- NOTE | 2018-11-21 11:43 | PT.OTN ---
Current Diagnoses Fibromyalgia (11/21/18) Physical Therapy Treatment Note PT-OP-A Visit Information Start: 08/21/18 15:21 Freq: Status: Active Protocol: Document 11/21/18 11:37 SA (Rec: 11/21/18 11:41 SA [email or web address]) Out-Patient Physical Therapy Visit Information Visit Information Visit Type Treatment Note Visit Start Time 09:45 Visit Stop Time 10:15 Total Visit Minutes 45 Visit Number 22 Number of EVAPORATIVE COOLER INSTALLER Visits 4 PT-OP-B Current Condition Start: 08/21/18 15:21 Freq: Status: Active Protocol: Document 08/21/18 14:30 RCC (Rec: 08/21/18 15:51 RCC [email or web address]) Current Condition History of Current Condition Onset Date years of chronic pain Current Complaints CAMACHO, neck and low back pain History of Current Condition Pt is a 42 y/o female presenting to physical therapy with a c/o bilateral neck and low back pain as well as a h/ o chronic CAMACHO. She received Botox injections every 3 mos, most recently got them on Saturday08/19/18 with now improved relief of CAMACHO. She has a h/o of a brain injury in 1997, and is now seeing someone for psychological help . She does OMM with Dr. Moore 1x/mo (after getting good improvements over time). 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 Pt notes that she is doing somewhat better after Botox injections, but does admit her pain comes and goes due to her fibromyalgia. She would like to be able to do Qigong again to assist with coordination and relaxation, which she has not had time to do due to home stressors and pain. Treatment Goals Patient/Caregiver Goals return to Qigong, improve posture and decrease pain Personal Factors Other Personal Factors That May Effect h/o brain injury 1997, Therapy/Recovery fibromyalgia, depression, memory loss, back and neck pain (chronic), anxiety, hypothyroidism PT-OP-C Subjective Start: 08/21/18 15:21 Freq: Status: Active Protocol: Document 11/21/18 11:37 SA (Rec: 11/21/18 11:41 SA [email or web address]) OP-PT Subjective Patient Comments Patient Comments Pt feeling flared up today, central low back pain is biggest complaint. PT-OP-F Manual Assessment Start: 08/21/18 15:21 Freq: Status: Active Protocol: Document 10/02/18 11:28 RCC (Rec: 10/04/18 12:49 RCC [email or web address]) Manual Assessments Soft Tissue Assessment Soft Tissue Mobility Assessment moderate tone levator, UT bilaterally, scalenes L and mild scalene R. PT-OP-J Posture/Palpation/Skin Start: 08/21/18 15:21 Freq: Status: Active Protocol: Document 08/21/18 14:30 RCC (Rec: 08/21/18 15:51 RCC [email or web address]) Posture Evaluation Comments Posture Comments severe forward head, moderate rounded shoulders, increased thoracic kyphosis in sitting PT-OP-K Range of Motion Start: 08/21/18 15:21 Freq: Status: Active Protocol: Document 10/23/18 09:45 RCC (Rec: 10/25/18 12:17 RCC [email or web address]) Cervical Spine Range of Motion Cervical Spine Active Degrees Testing Position Sitting Flexion 55 Extension 50 Rotation Left 75 Rotation Right 75 Lateral Flexion Left 32 Lateral Flexion Right 36 ROM Limitations Soft Tissue Tightness Muscle Tone Pain PT-OP-L Special Tests Start: 08/21/18 15:21 Freq: Status: Active Protocol: Document 08/21/18 14:30 RCC (Rec: 08/21/18 15:51 RCC [email or web address]) Special Tests Cervical Spine Special Tests Slump Test Results increases tension Spurling's Test Test Results positive B Lumbar Spine Special Tests Straight Leg Raise Test Results negative B PT-OP-M Strength Start: 08/21/18 15:21 Freq: Status: Active Protocol: Document 10/23/18 09:45 RCC (Rec: 10/25/18 12:17 RCC [email or web address]) Shoulder Strength Shoulder Manual Muscle Testing Right Flexion 4 Good Abduction (C5) 4+ Good+ External Rotation 4 Good Internal Rotation 5 Normal Left Flexion 5 Normal Abduction (C5) 4+ Good+ External Rotation 4+ Good+ Internal Rotation 5 Normal Elbow/Forearm Strength Elbow and Forearm Manual Muscle Testing Right Flexion (C6) 5 Normal Extension (C7) 4+ Good+ Left Flexion (C6) 5 Normal Extension (C7) 5 Normal PT-OP-Q Treatments Start: 08/21/18 15:21 Freq: Status: Active Protocol: Document 11/21/18 11:41 SA (Rec: 11/21/18 11:43 SA [email or web address]) Cardio Equipment Upper Body Ergometer (UBE) Duration (Minutes) 6 RPM 60 Therapeutic Exercises Supine Exercises Thoracic EXT stretch Side bilateral Equipment Used foam roll Reps/Minutes 3 min Sidelying Exercises QL stretch Side right Reps/Minutes 6 min Comments L SL with feet on/off EOB with PT assist- gentle stretch Sitting Exercises UT, levator stretch Side bilateral Reps/Minutes x2 each x 30 sec 3 Sitting Exercise Name pectoral strecth Standing Exercises PPT Standing Exercise Name Wall squat with PPT Side bilateral Reps/Minutes x 5SH x 5 reps Comments [place] Other Exercises Child's pose Other Exercise Name netural and bias to L and R Side bilateral Reps/Minutes 30 sec x2 each Cat/Cow Other Exercise Name cat/cow Side bilateral Reps/Minutes x8 Manual Therapy Treatment Soft Tissue Mobilization B QL, lumbar paraspinals, gluteals Mobilization Type Myofascial Release Rolling Intensity/Depth Superficial Body Position Sidelying PT-OP-R Modalities Start: 08/21/18 15:21 Freq: Status: Active Protocol: Document 11/21/18 11:37 SA (Rec: 11/21/18 11:41 SA [email or web address]) Hot Pack/Cold Pack Treatment Cold Pack Location cervical/thoracic spine Patient Position Hooklying Treatment Duration (minutes) 15 Patient Tolerance Good Comments performed with MHP on abdomen moist heat Location stomach Patient Position Supine Treatment Duration (minutes) 15 PT-OP-S Aquatic Treatment Start: 08/21/18 15:21 Freq: Status: Active Protocol: Document 11/17/18 13:00 LJ (Rec: 11/17/18 15:32 LJ [email or web address]) Aquatics Treatment Pool Entry/Exit Pool Entry/Exit Method Stairs Assistance Independent Water Walking forward walking with paddles Water Level Neck Level Walking Equipment UE paddles Comments no pain this time fwd,bck, side, july Water Level Chest Level Level of Assistance Verbal Cues Comments arms below 90* Lower Extremity Stretches DKTC, SKTC Water Level [place] Reps/Duration 1 min each side Comments at wall Upper Extremity Exercises breast stroke arms while walking-forward and reverse Water Level Chest Level Comments gentle movements shoulder hor ab/ad, flex/ext Body Position Sitting Water Level Neck Level Comments hand hold on wall when needed Upper Extremity Stretches UT, SCM Body Position Standing Water Level Neck Level Reps/Duration 1 min bilat Comments R>L pain with gentle massage Balance seated on saddle float Details lateral floatation position Body Position Sitting Water Level Chest Level Reps/Duration 5 min Comments kicking with min UE use for balance [place] Activities [place] Activities Bicycle [place] Hip Abduction/Adduction Equipment saddle float Duration 15 Comments cues for extending LEs rather than riding recumbant style Manual Techniques Aquatic Massage during gentle stretching R>L pain and tightness PT-OP-T Assessment and Plan Start: 08/21/18 15:21 Freq: Status: Active Protocol: Document 11/21/18 11:37 SA (Rec: 11/21/18 11:41 SA [email or web address]) Physical Therapy Assessment Assessment Summary Assessment Pt tolerated less exercise today with c/o LB pain. Responded well to STM. Is not consistent with HEP. Physical Therapy Plan Next Visit Focus/Plan Next Note Type Treatment Note Next Visit Plan Progress core strength to improve posture and decrease pain. Attempt Bad Ragaz if pt not too cold
--- NOTE | 2018-11-24 13:00 | PT.OTN ---
Current Diagnoses Fibromyalgia (11/24/18) Physical Therapy Treatment Note PT-OP-A Visit Information Start: 08/21/18 15:21 Freq: Status: Active Protocol: Document 11/24/18 13:00 SAK (Rec: 11/26/18 14:19 SAK [id number]) Out-Patient Physical Therapy Visit Information Visit Information Visit Type Aquatic Treatment Note Visit Start Time 09:45 Visit Stop Time 10:15 Total Visit Minutes 45 Visit Number 23 Number of MAC ARTIST Visits 0 Precautions Precautions Fibromyalgia PT-OP-B Current Condition Start: 08/21/18 15:21 Freq: Status: Active Protocol: Document 08/21/18 14:30 RCC (Rec: 08/21/18 15:51 RCC [email or web address]) Current Condition History of Current Condition Onset Date years of chronic pain Current Complaints CAMACHO, neck and low back pain History of Current Condition Pt is a 42 y/o female presenting to physical therapy with a c/o bilateral neck and low back pain as well as a h/ o chronic CAMACHO. She received Botox injections every 3 mos, most recently got them on Saturday08/19/18 with now improved relief of CAMACHO. She has a h/o of a brain injury in 1997, and is now seeing someone for psychological help . She does OMM with Dr. Moore 1x/mo (after getting good improvements over time). 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 Pt notes that she is doing somewhat better after Botox injections, but does admit her pain comes and goes due to her fibromyalgia. She would like to be able to do Qigong again to assist with coordination and relaxation, which she has not had time to do due to home stressors and pain. Treatment Goals Patient/Caregiver Goals return to Qigong, improve posture and decrease pain Personal Factors Other Personal Factors That May Effect h/o brain injury 1997, Therapy/Recovery fibromyalgia, depression, memory loss, back and neck pain (chronic), anxiety, hypothyroidism PT-OP-C Subjective Start: 08/21/18 15:21 Freq: Status: Active Protocol: Document 11/24/18 13:00 SAK (Rec: 11/26/18 14:19 SAK [id number]) OP-PT Subjective Patient Comments Patient Comments Patient reports feeling down because she was informed she only has 1 more aquatic physical therapy visit and one PT visit in clinic left approved then will have to be discharged due to insurance issues. States she will try to come to the pool on her own to do aquatic exercises. Pain and soreness increased due to stress at home and moving to new apartment. PT-OP-F Manual Assessment Start: 08/21/18 15:21 Freq: Status: Active Protocol: Document 10/02/18 11:28 RCC (Rec: 10/04/18 12:49 RCC [email or web address]) Manual Assessments Soft Tissue Assessment Soft Tissue Mobility Assessment moderate tone levator, UT bilaterally, scalenes L and mild scalene R. PT-OP-J Posture/Palpation/Skin Start: 08/21/18 15:21 Freq: Status: Active Protocol: Document 08/21/18 14:30 RCC (Rec: 08/21/18 15:51 RCC [email or web address]) Posture Evaluation Comments Posture Comments severe forward head, moderate rounded shoulders, increased thoracic kyphosis in sitting PT-OP-K Range of Motion Start: 08/21/18 15:21 Freq: Status: Active Protocol: Document 10/23/18 09:45 RCC (Rec: 10/25/18 12:17 RCC [email or web address]) Cervical Spine Range of Motion Cervical Spine Active Degrees Testing Position Sitting Flexion 55 Extension 50 Rotation Left 75 Rotation Right 75 Lateral Flexion Left 32 Lateral Flexion Right 36 ROM Limitations Soft Tissue Tightness Muscle Tone Pain PT-OP-L Special Tests Start: 08/21/18 15:21 Freq: Status: Active Protocol: Document 08/21/18 14:30 RCC (Rec: 08/21/18 15:51 RCC [email or web address]) Special Tests Cervical Spine Special Tests Slump Test Results increases tension Spurling's Test Test Results positive B Lumbar Spine Special Tests Straight Leg Raise Test Results negative B PT-OP-M Strength Start: 08/21/18 15:21 Freq: Status: Active Protocol: Document 10/23/18 09:45 RCC (Rec: 10/25/18 12:17 RCC [email or web address]) Shoulder Strength Shoulder Manual Muscle Testing Right Flexion 4 Good Abduction (C5) 4+ Good+ External Rotation 4 Good Internal Rotation 5 Normal Left Flexion 5 Normal Abduction (C5) 4+ Good+ External Rotation 4+ Good+ Internal Rotation 5 Normal Elbow/Forearm Strength Elbow and Forearm Manual Muscle Testing Right Flexion (C6) 5 Normal Extension (C7) 4+ Good+ Left Flexion (C6) 5 Normal Extension (C7) 5 Normal PT-OP-Q Treatments Start: 08/21/18 15:21 Freq: Status: Active Protocol: Document 11/21/18 11:41 SA (Rec: 11/21/18 11:43 SA [email or web address]) Cardio Equipment Upper Body Ergometer (UBE) Duration (Minutes) 6 RPM 60 Therapeutic Exercises Supine Exercises Thoracic EXT stretch Side bilateral Equipment Used foam roll Reps/Minutes 3 min Sidelying Exercises QL stretch Side right Reps/Minutes 6 min Comments L SL with feet on/off EOB with PT assist- gentle stretch Sitting Exercises UT, levator stretch Side bilateral Reps/Minutes x2 each x 30 sec 3 Sitting Exercise Name pectoral strecth Standing Exercises PPT Standing Exercise Name Wall squat with PPT Side bilateral Reps/Minutes x 5SH x 5 reps Comments [place] Other Exercises Child's pose Other Exercise Name netural and bias to L and R Side bilateral Reps/Minutes 30 sec x2 each Cat/Cow Other Exercise Name cat/cow Side bilateral Reps/Minutes x8 Manual Therapy Treatment Soft Tissue Mobilization B QL, lumbar paraspinals, gluteals Mobilization Type Myofascial Release Rolling Intensity/Depth Superficial Body Position Sidelying PT-OP-R Modalities Start: 08/21/18 15:21 Freq: Status: Active Protocol: Document 11/21/18 11:37 SA (Rec: 11/21/18 11:41 SA [email or web address]) Hot Pack/Cold Pack Treatment Cold Pack Location cervical/thoracic spine Patient Position Hooklying Treatment Duration (minutes) 15 Patient Tolerance Good Comments performed with MHP on abdomen moist heat Location stomach Patient Position Supine Treatment Duration (minutes) 15 PT-OP-S Aquatic Treatment Start: 08/21/18 15:21 Freq: Status: Active Protocol: Document 11/24/18 13:00 [facility] (Rec: 11/26/18 14:19 [facility] [id number]) Aquatics Treatment Pool Entry/Exit Pool Entry/Exit Method Stairs Assistance Independent Water Walking forward walking with paddles Water Level Neck Level Walking Equipment UE paddles fwd,bck, , july Water Level Chest Level Level of Assistance Verbal Cues Comments arms below 90* Lower Extremity Stretches DKTC, SKTC Water Level [place] Reps/Duration 1 min each side Comments at wall Upper Extremity Exercises breast stroke arms while walking-forward and reverse Water Level Chest Level Comments gentle movements shoulder hor ab/ad, flex/ext Body Position Sitting Water Level Neck Level Comments hand hold on wall when needed Upper Extremity Stretches UT, SCM Body Position Standing Water Level Neck Level Reps/Duration 1 min bilat Comments R>L pain with gentle massage [place] Activities [place] Activities Bicycle [place] Hip Abduction/Adduction Other Activities Deep water hang with deep breathing for muscle relaxation and inhibition, spinal decompression. Equipment saddle float Duration 15 Manual Techniques Bad Ragaz supine for pain management and flexibility PT-OP-T Assessment and Plan Start: 08/21/18 15:21 Freq: Status: Active Protocol: Document 11/24/18 13:00 SAK (Rec: 11/26/18 14:19 SAK [id number]) Physical Therapy Assessment Goals cervical spine ROM Impairment decreased cervical spine ROM Brilliandeer Lopper Goal (LTG) cervical spine ROM flexion to 60 degrees extension to 50 degrees sidebending to 40 degrees bilaterally rotation to 80 degrees bilaterally 10/23/18: good progress LTG Duration 6 weeks posture Impairment sitting posture Longterm Goal (LTG) Pt will demonstrate proper seated posture with neutral head, shoulders and slight to no thoracic kyphosis for 5 min without cuing prior to d/c to decrease overall cervicothoracic muscle tone. 10/23/18: not tested LTG Duration 6 weeks UE weakness Impairment UE weakness Short Term Goal (STG) Pt will demonstrate bilateral shoulder and elbow strength of 4+/5 or greater with all major muscle groups. 10/23/18: good progress STG Duration 3 weeks Longterm Goal (LTG) Pt will demonstrate bilateral shoulder and elbow strength of 5/5 or greater with all major muscle groups. LTG Duration 6 weeks Recreational activities Impairment unable to participate in recreational activities Short Term Goal (STG) pt will tolerate return to [facility] for 15 min, 3 times per week with pain rated 6/10 or less. 10/23/18: has not returned to [facility] due to being busy but is back to limited tango routines STG Duration 3 weeks Brilliandeer Lopper Goal (LTG) pt will tolerate return to [facility] for at least 30 min, 3 times per week with pain rated 4/10 or less prior to d/c. LTG Duration 6 weeks Assessment Summary Assessment Stressors at home and moving of boxes to new apartment exacerbated patient's pain. She demonstrates good understanding of aquatic exercises and methods for increasing and decreasing difficulty depending on her symptoms. Reports she will try to come to pool on her own . Physical Therapy Plan Frequency and Duration Frequency of Treatment 2x/Week Duration of Treatment 6 weeks Plan of Care Start Date 10/23/18 Plan of Care End Date 12/04/18 Therapeutic Interventions Therapeutic Interventions Aquatic Therapy Balance Training Coordination Training Gait Training Home Exercise Program Manual Therapy Neuromuscular Re-education Orthotic/Prosthetic Management Patient/Caregiver Education Self-Care/Home Management Soft Tissue Mobilization Taping Therapeutic Activities Therapeutic Exercises Modalities Cold Pack/Ice Massage Electric Stimulation Hot Packs Ultrasound Next Visit Focus/Plan Next Note Type Treatment Note Next Visit Plan Issue written aquatic exercise program. Anticipate 1 further PT visit in clinic then discharge to independent [facility] and home management of symptoms; complete patient education.
--- NOTE | 2018-11-27 17:02 | PT.OTN ---
Current Diagnoses Fibromyalgia (11/27/18) Physical Therapy Treatment Note PT-OP-A Visit Information Start: 08/21/18 15:21 Freq: Status: Active Protocol: Document 11/27/18 09:48 LRN (Rec: 11/27/18 10:33 LRN [id number]) Out-Patient Physical Therapy Visit Information Visit Information Visit Type Treatment Note Visit Start Time 09:48 Visit Stop Time 10:43 Total Visit Minutes 55 Visit Number 24 Number of ELECTRIC SOLDERER Visits 0 Evaluation Information Evaluation Date 08/21/18 Precautions Precautions Fibromyalgia PT-OP-B Current Condition Start: 08/21/18 15:21 Freq: Status: Active Protocol: Document 08/21/18 14:30 RCC (Rec: 08/21/18 15:51 RCC [id number]) Current Condition History of Current Condition Onset Date years of chronic pain Current Complaints ACMACHO, neck and low back pain History of Current Condition Pt is a 42 y/o female presenting to physical therapy with a c/o bilateral neck and low back pain as well as a h/ o chronic CAMACHO. She received Botox injections every 3 mos, most recently got them on Saturday08/19/18 with now improved relief of CAMACHO. She has a h/o of a brain injury in 1997, and is now seeing someone for psychological help . She does OMM with Dr. Moore 1x/mo (after getting good improvements over time). 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 Pt notes that she is doing somewhat better after Botox injections, but does admit her pain comes and goes due to her fibromyalgia. She would like to be able to do Qigong again to assist with coordination and relaxation, which she has not had time to do due to home stressors and pain. Treatment Goals Patient/Caregiver Goals return to Qigong, improve posture and decrease pain Personal Factors Other Personal Factors That May Effect h/o brain injury 1997, Therapy/Recovery fibromyalgia, depression, memory loss, back and neck pain (chronic), anxiety, hypothyroidism PT-OP-C Subjective Start: 08/21/18 15:21 Freq: Status: Active Protocol: Document 11/27/18 09:48 LRN (Rec: 11/27/18 10:33 LRN [id number]) OP-PT Subjective Patient Comments Patient Comments States she is having a bad day . Moving today and moved yesterday so entire body is hurting. Her back is not in the acute pain as when she started. Pt doesn't feel she is ready for discharged but is having to because of lack of insurance. PT-OP-F Manual Assessment Start: 08/21/18 15:21 Freq: Status: Active Protocol: Document 10/02/18 11:28 RCC (Rec: 10/04/18 12:49 RCC [id number]) Manual Assessments Soft Tissue Assessment Soft Tissue Mobility Assessment moderate tone levator, UT bilaterally, scalenes L and mild scalene R. PT-OP-J Posture/Palpation/Skin Start: 08/21/18 15:21 Freq: Status: Active Protocol: Document 11/27/18 09:48 LRN (Rec: 11/27/18 16:30 LRN [id number]) Posture Evaluation Comments Posture Comments Good head/neck position. Upper thoracic spine is flattened. PT-OP-K Range of Motion Start: 08/21/18 15:21 Freq: Status: Active Protocol: Document 11/27/18 09:48 LRN (Rec: 11/27/18 16:30 LRN [id number]) Cervical Spine Range of Motion Cervical Spine Active Degrees Testing Position Sitting Flexion 43 Extension 25 Rotation Left 48 Rotation Right 70 Lateral Flexion Left 20 Lateral Flexion Right 32 ROM Limitations Soft Tissue Tightness Pain PT-OP-L Special Tests Start: 08/21/18 15:21 Freq: Status: Active Protocol: Document 08/21/18 14:30 RCC (Rec: 08/21/18 15:51 RCC [id number]) Special Tests Cervical Spine Special Tests Slump Test Results increases tension Spurling's Test Test Results positive B Lumbar Spine Special Tests Straight Leg Raise Test Results negative B PT-OP-M Strength Start: 08/21/18 15:21 Freq: Status: Active Protocol: Document 11/27/18 09:48 LRN (Rec: 11/27/18 16:30 LRN [id number]) Shoulder Strength Shoulder Manual Muscle Testing Right Flexion 3 Fair Extension 3 Fair Abduction (C5) 3 Fair External Rotation 3 Fair Internal Rotation 4 Good Left Flexion 3 Fair Extension 5 Normal Abduction (C5) 4+ Good+ External Rotation 3 Fair Internal Rotation 3 Fair PT-OP-Q Treatments Start: 08/21/18 15:21 Freq: Status: Active Protocol: Document 11/27/18 09:48 LRN (Rec: 11/27/18 16:40 LRN [id number]) Cardio Equipment Upper Body Ergometer (UBE) Duration (Minutes) 6 RPM 60 Therapeutic Exercises Sitting Exercises Connor Shouler Jeevan Holding Sitting Exercise Name All shoulder movements Side bilateral Resistance Isometric Comments MMT UT, levator stretch Side bilateral Reps/Minutes x2 each x 30 sec Other Exercises Active Hamstring stretch Other Exercise Name Standing Yoga Active HS stretch Side bilateral Child's pose Other Exercise Name netural and bias to L and R Side bilateral Reps/Minutes 30 sec x2 each Cat/Cow Other Exercise Name cat/cow Side bilateral Reps/Minutes x8 Manual Therapy Treatment Soft Tissue Mobilization B QL, lumbar paraspinals, gluteals Body Location B QL, lumbar paraspinals Mobilization Type Rolling Strumming Intensity/Depth Superficial Body Position Sidelying thoracic paraspinals Mobilization Type Rolling Strumming Intensity/Depth Superficial Body Position Prone Comments right worse than left R QL, gluteals, piriformis Mobilization Type Rolling Strumming Intensity/Depth Superficial Body Position Prone 1 Body Location Suboccipitals, Upper Trap Mobilization Type Rolling Strumming Intensity/Depth Moderate Body Position Prone Self-Care/Home Management Treatment Education Patient Education Home Exercise Program Activities Self-Care/Home Management Activities Issued (reviewed during ex portion of therapy) HEP: Stretches: Active HS, Child Pose, Cat/Camel, Seated Sun Breaths. PT-OP-R Modalities Start: 08/21/18 15:21 Freq: Status: Active Protocol: Document 11/27/18 09:48 LRN (Rec: 11/27/18 16:41 LRN [id number]) Hot Pack/Cold Pack Treatment Cold Pack Location cervical/thoracic spine Patient Position Hooklying Treatment Duration (minutes) 10 Patient Tolerance Good Comments performed with MHP on abdomen moist heat Location stomach Patient Position Supine Treatment Duration (minutes) 10 PT-OP-S Aquatic Treatment Start: 08/21/18 15:21 Freq: Status: Active Protocol: Document 11/24/18 13:00 SAK (Rec: 11/26/18 14:19 SAK [id number]) Aquatics Treatment Pool Entry/Exit Pool Entry/Exit Method Stairs Assistance Independent Water Walking forward walking with paddles Water Level Neck Level Walking Equipment UE paddles fwd,bck, july Water Level Chest Level Level of Assistance Verbal Cues Comments arms below 90* Lower Extremity Stretches DKTC, SKTC Water Level [place] Reps/Duration 1 min each side Comments at wall Upper Extremity Exercises breast stroke arms while walking-forward and reverse Water Level Chest Level Comments gentle movements shoulder hor ab/ad, flex/ext Body Position Sitting Water Level Neck Level Comments hand hold on wall when needed Upper Extremity Stretches UT, SCM Body Position Standing Water Level Neck Level Reps/Duration 1 min bilat Comments R>L pain with gentle massage [place] Activities [place] Activities Bicycle [place] Hip Abduction/Adduction Other Activities Deep water hang with deep breathing for muscle relaxation and inhibition, spinal decompression. Equipment saddle float Duration 15 Manual Techniques [place] supine for pain management and flexibility PT-OP-T Assessment and Plan Start: 08/21/18 15:21 Freq: Status: Active Protocol: Document 11/27/18 09:48 LRN (Rec: 11/27/18 10:33 LRN [id number]) Physical Therapy Assessment Goals cervical spine ROM Impairment decreased cervical spine ROM Fpc Goal (LTG) cervical spine ROM flexion to 60 degrees extension to 50 degrees sidebending to 40 degrees bilaterally rotation to 80 degrees bilaterally 10/23/18: good progress LTG Duration 11/27/18: GOAL NOT MET posture Impairment sitting posture Fpc Goal (LTG) Pt will demonstrate proper seated posture with neutral head, shoulders and slight to no thoracic kyphosis for 5 min without cuing prior to d/c to decrease overall cervicothoracic muscle tone. LTG Duration 11/27/18: GOAL MET UE weakness Impairment UE weakness Short Term Goal (STG) Pt will demonstrate bilateral shoulder and elbow strength of 4+/5 or greater with all major muscle groups. 10/23/18: good progress STG Duration 11/27/18: GOAL NOT MET ( Shoulder strength generally 3/ 5) Fpc Goal (LTG) Pt will demonstrate bilateral shoulder and elbow strength of 5/5 or greater with all major muscle groups. LTG Duration 11/27/18: GOAL NOT MET Recreational activities Impairment unable to participate in recreational activities Short Term Goal (STG) pt will tolerate return to [facility] for 15 min, 3 times per week with pain rated 6/10 or less. 10/23/18: has not returned to [facility] due to being busy but is back to limited tango routines STG Duration 11/27/18: GOAL NOT MET Fpc Goal (LTG) pt will tolerate return to [facility] for at least 30 min, 3 times per week with pain rated 4/10 or less prior to d/c. LTG Duration 11/27/18: GOAL NOT MET Progress Towards Goals Progress Towards Goals Slow Progress due to Activity Tolerance Slow Progress due to Medical Issues Slow Progress - Other Assessment Summary Assessment Goals not met except Posture Goal was met. Pt is in a general flared up state due to being in the process of moving and from social/forest stress in life. The pt has been given a HEP of stretches, but strengthening was only progressed in aquatic therapy. The pt would benefit from further physical therapy, but due to insurance limits the pt is not able to continue. Physical Therapy Plan Frequency and Duration Frequency of Treatment 2x/Week Duration of Treatment 6 weeks Plan of Care Start Date 10/23/18 Plan of Care End Date 12/04/18 Discharge Physical Therapy Discharge Comments The pt is being discharged to an independent aquatic and home physical therapy program due to limitation in insurance and pt financial unable to continue. The pt would benefit from further physical therapy for progression onto a landbased strengthening program; therefore when the pt insurance status changes or if she is able to financially afford further physical therapy I would recommend the pt be referred for manual therapy and general strengthening for her general trunk and UE/LE pain.
== END 2018-12-05 14:21 | disposition home or self-care (01) ==
LOC: PHYS 09:45
PROVIDERS: PCP Family Medicine; Visit Provider Family Medicine
DX: M79.7 Fibromyalgia (principal)
CPT/HCPCS: 97010; 97110; 97113; 97140; 97162

== ENCOUNTER 2019-10-03 19:24 | Emergency (ER) | payer OTHER, MEDICAID, SELFPAY ==
[2019-10-03 19:30] VITALS: BP 105/65; BP 113/79; PULSE 101; PULSE 97; RESP 20; TEMP 36.7; O2SAT 98; O2SAT 99; BMI 23.5
--- NOTE | 2019-10-03 19:37 | ED_ITS ---
HPI - Wound/Laceration <SEBASTIAN Pizano - Last Filed: 10/03/19 21:23> General Chief Complaint: Wound/Laceration Stated Complaint: Cut Chunk Out of Rt Thumb Time Seen by Provider: 10/03/19 19:26 History of Present Illness HPI narrative: 43-year-old female with a history of anxiety, depression, and PTSD, presents emergency department for a laceration of her right thumb with a slicing appliance. Patient states just happened, she has been applying pressure which has controlled bleeding. She denies any other arm major medical issues, tingling, fevers, purulent discharge, severe pain, nausea, vomiting, diarrhea, or any other concerns. Related Data Home Medications Medication Instructions Recorded Confirmed levonorgestrel [Mirena] 52 mg INTRAU #0 06/11/17 10/02/19 fluticasone propionate 50 2 spray INTRANASAL DAILY PRN gram 04/14/19 10/02/19 mcg/actuation nasal spray,suspension iron with vitamin c PO 04/14/19 10/02/19 melatonin 3 mg capsule 3 mg PO BEDTIME PRN 04/14/19 10/02/19 onabotulinumtoxinA 100 unit 200 unit IM [id number] each 05/29/19 10/02/19 solution for injection Previous Rx's Medication Instructions Recorded alpha-stim device #1 ea 12/22/18 levothyroxine 88 mcg tablet See Rx Instructions .ROUTE 02/09/19 .COMPLEX #30 tablet bupropion HCl 300 mg 24 hr tablet, 300 mg PO QAM #30 tab 04/14/19 extended release clonazepam 0.5 mg tablet 0.25 mg PO BEDTIME PRN #30 tab 08/28/19 lorazepam 0.5 mg tablet 0.5 mg PO BEDTIME PRN #30 tab 10/02/19 Allergies Allergy/AdvReac Type Severity Reaction Status Date / Time codeine [CODEINE] Allergy Mild itching Verified 10/02/19 09:32 divalproex sodium Allergy Mild itching Verified 10/02/19 09:32 [From DEPAKOTE] meperidine [From DEMEROL] Allergy Mild itching Verified 10/02/19 09:32 phenytoin [From DILANTIN] Allergy Mild itching Verified 10/02/19 09:32 Review of Systems <SEBASTIAN Pizano - Last Filed: 10/03/19 21:23> Review of Systems Narrative: REVIEW OF SYSTEMS: GENERAL: Denies fever or chills. HENT: Denies head trauma. EYE: Denies double vision or vision loss. CARDIOVASCULAR: Denies syncope. MUSCULOSKELETAL: Denies weakness, or deformities. INTEGUMENTARY: Complains of R thumb laceration, see HPI. NEURO: Denies numbness or tingling. Patient History <SEBASTIAN Pizano - Last Filed: 10/03/19 21:23> Medical History Acne (Chronic) Anemia (Chronic) Anxiety (Chronic) Chickenpox (Resolved) Depression (Chronic) Fibromyalgia (Chronic ~2004) GERD (gastroesophageal reflux disease) (Chronic) Halo nevus (Resolved ~1989) History of frequent headaches (Chronic) Hypothyroidism (Chronic ~2004) IBS (irritable bowel syndrome) (Chronic) IUD (intrauterine device) in place (Chronic) Kidney stones (Chronic) Migraines (Chronic ~11/12/14) Plantar warts (Resolved) PTSD (post-traumatic stress disorder) (Chronic) Restless leg syndrome (Chronic) Seizures (Chronic ~1998) Tinnitus (Chronic) Vertigo (Resolved ~1997) Surgical History Anesthesia (Inactive) History of fracture of nose (Acute ~1993) History of lithotripsy (~2006) Vacuum extractor delivery, delivered (Resolved) Family History Father Age: 73 Cancer Diabetes mellitus High cholesterol Depression Mother Age: 70 High cholesterol Social History marital status: Smoking Status: Never smoker alcohol intake: current substance use type: does not use Smoking Status: Never smoker Exam <SEBASTIAN Pizano - Last Filed: 10/03/19 21:23> Initial Vital Signs Initial Vital Signs: Vital Signs Temperature 98.0 F 10/03/19 19:30 Pulse Rate 101 H 10/03/19 19:30 Respiratory Rate 20 10/03/19 19:30 Blood Pressure 105/65 10/03/19 19:30 Pulse Oximetry 99 10/03/19 19:30 PHYSICAL EXAMINATION: GENERAL: Well groomed, alert, and cooperative. Answers questions promptly and appropriately. Vital signs noted. HENT: Normocephalic, atraumatic. RESPIRATORY: Normal respiratory rate, trachea midline, airway patent. No stridor, nasal flaring or accessory muscle use. MUSCULOSKELETAL: Normal gait and coordination. Equal tone and mass bilaterally. Thumb with Full ROM and good strength against resistance EXTREMITIES: CMS intact. Moves all extremities. SKIN: Warm, dry, soft, appropriate color for ethnicity. A 3 cm x 1 cm avulsion noted to ulnar aspect of right thumb, bleeding controlled with pressure. NEURO: Alert and Oriented X 3. Good coordination. PSYCH: Appropriate affect and mood. <Nicole Wilkins MD - Last Filed: 10/04/19 02:09> Initial Vital Signs Initial Vital Signs: Vital Signs Temperature 98.0 F 10/03/19 19:30 Pulse Rate 101 H 10/03/19 19:30 Respiratory Rate 20 10/03/19 19:30 Blood Pressure 105/65 10/03/19 19:30 Pulse Oximetry 99 10/03/19 19:30 Procedures <SEBASTIAN Pizano - Last Filed: 10/03/19 21:23> Laceration Repair Laceration 1: Site: hand Side (If applicable): right Size (cm): 2 Description: other (Avulsion) Skin layer closed with: dermabond Course <SEBASTIAN Pizano - Last Filed: 10/03/19 21:23> Course Course Narrative: Wound was irrigated, small amount of glue was applied. Wound was dressed with gauze and pressure. Orders Ordered: ED Orders 10/03/19 19:35 XR finger RT min 2V Stat Vital Signs Vital signs: Vital Signs - 8 hr 10/03/19 19:30 10/03/19 20:38 Temperature 98.0 F Pulse Rate 97 H 88 Respiratory Rate 20 18 Blood Pressure 113/79 99/69 Blood Pressure [Left Arm] 105/65 Pulse Oximetry 98 99 <Nicole Wilkins MD - Last Filed: 10/04/19 02:09> Orders Ordered: ED Orders 10/03/19 19:35 XR finger RT min 2V Stat Vital Signs Vital signs: Vital Signs - 8 hr 10/03/19 19:30 10/03/19 20:38 Temperature 98.0 F Pulse Rate 97 H 88 Respiratory Rate 20 18 Blood Pressure 113/79 99/69 Blood Pressure [Left Arm] 105/65 Pulse Oximetry 98 99 [facility] - Wound/Laceration <SEBASTIAN Pizano - Last Filed: 10/03/19 21:23> Medical Records Attestation: I reviewed the patient's medical records. Lab Data Attestation: I reviewed the patient's lab results. Imaging Data Extremity x-ray #1: Radiologist's Impression: [address] [address] XRay Report Signed Patient: Tasha Noland MMR#: [id number] : 1975Acct:[id number] Age/Sex: 43 / FDate of Service: 10/03/19 Loc: ED Accession Number: [id number] Procedure: XR finger RT min 2V Ordering Provider: Jing Blackman PROCEDURE: XR FINGER RT MIN 2V INDICATIONS: R thumb lac, r/o bone involvement. TECHNIQUE: AP hand, 2 views of the first finger(s) acquired. COMPARISON: None. FINDINGS: Bones: No fractures or dislocations. No suspicious bony lesions. Soft tissues: No suspicious soft tissue calcifications. IMPRESSION: No right thumb fracture or dislocation. No radiopaque foreign body. Dictated by: Jhoan Lopes M.D. on 10/03/2019 at 20:04 Approved by: Jhoan Lopes M.D. on 10/03/2019 at 20:05 [facility] Narrative Medical decision making narrative: 43-year-old female with history of anxiety presenting to the emergency department for an avulsion of her right thumb. Bleeding controlled with pressure, x-ray indicates no bony involvement. Wound was irrigated, no foreign bodies were visualized. Patient's wound is at low risk for infection. No concern for tendon involvement due to location and full range of motion strength with thumb movement. Small amount of glue was applied to decreased bleeding. Pressure dressing was applied without continued bleeding. Care instructions, infection screening, and follow-up instructions discussed. Patient agreed to plan of care verbalized understanding. Discharge Plan Departure Patient Disposition: Home Clinical Impression: Avulsion of finger Qualifiers: Encounter type: initial encounter Qualified Code(s): S61.209A - Unspecified open wound of unspecified finger without damage to nail, initial encounter Discharge Date/Time: 10/03/19 20:38 Instructions: DI for Laceration Repair Activity Restrictions/Additional Instructions: Thank you for entrusting me with your care today. As discussed, your x-rays negative for any fractures. I placed a small amount of glue on your injury and a pressure dressing. Leave this dressing in place for the next 24 hours and less you feel like it is too tight you may loosen the dressing. Wash the area with water gently over the next few days. Apply bacitracin to the area help dissolve the glue after 3-4 days. Do not soak your wound in any water such as dishwater, hot tubs, or legs. No foreign bodies were found in your wound today. While there is low-risk for infection at this time, retained foreign bodies and infection are always possible with any cut or break in the skin. Please monitor the wound closely and be re-evaluated immediately if you develop any signs of infection such as pus, increasing redness, increasing pain, fevers, or any other concerns. Return emergency department for any new or worsening symptoms such as fevers, severe pain, numbness, tingling, or any other concerns. Prescriptions: No Action fluticasone propionate 50 mcg/actuation spray,suspension 2 spray intranasal DAILY PRNRF: 0 iron with vitamin c PO RF: 0 melatonin 3 mg capsule 3 mg PO BEDTIME PRNRF: 0 bupropion HCl 300 mg tablet extended release 24 hr 300 mg PO QAM Qty: 30 RF: 5 clonazepam 0.5 mg tablet 0.25 mg PO BEDTIME PRN (Reason: insomnia) Qty: 30 RF: 2 Hold Instructions: 10/01 trial of lorazepam lorazepam 0.5 mg tablet 0.5 mg PO BEDTIME PRN (Reason: insomnia) Qty: 30 RF: 0 levonorgestrel [Mirena] 1 EACH intrauterine device 52 mg INTRAU Qty: 0 RF: 0 (DME) alpha-stim device Qty: 1 RF: 0 levothyroxine 88 mcg tablet See Rx Instructions .ROUTE .COMPLEX Qty: 30 RF: 3 Botox 100 unit recon soln 200 unit IM [id number] RF: 0 Referrals: César Mercado MD [Primary Care Provider] - <Nicole Wilkins MD - Last Filed: 10/04/19 02:09> Cosign ED Attending Cosignature Attestation: I was immediately available in the department for consultation throughout this patient's visit. I agree with documentation as above. Nicole Wilkins MD
[2019-10-03 20:38] VITALS: BP 99/69; PULSE 88; RESP 18; O2SAT 99
== END 2019-10-03 20:38 | disposition home or self-care (01) ==
PROVIDERS: Emergency Provider Nurse Practitioner; PCP Family Medicine
DX: S61.209A Unspecified open wound of unspecified finger without damage to nail, initial encounter (principal); W27.8XXA Contact with other nonpowered hand tool, initial encounter
CPT/HCPCS: 73140; 99283; 99284

== ENCOUNTER → 2019-12-21 16:38 | Outpatient (CLI) | payer OTHER, MEDICAID, SELFPAY ==
[2019-12-21 18:19] LABS: Ferritin 45 ng/mL (6-137)
[2019-12-21 18:33] LABS: Vitamin B12 402 pg/mL (239-931)
[2019-12-21 18:41] LABS: Thyroid Stimulating Hormone 1.54 uIU/mL (0.47-4.68)
== END ==
PROVIDERS: PCP Family Medicine; Referring Provider Family Medicine; Visit Provider Family Medicine
DX: E03.9 Hypothyroidism, unspecified (principal); R53.83 Other fatigue
CPT/HCPCS: 36415; 82607; 82728; 84443

== ENCOUNTER → 2020-01-25 15:02 | Outpatient (CLI) | payer OTHER, MEDICAID, SELFPAY ==
--- NOTE | 2020-01-25 15:04 | DI.RAD.S_ITS ---
PROCEDURE: XR HAND RT MIN 3V INDICATIONS: Right hand pain TECHNIQUE: 3 views of the hand(s) acquired. COMPARISON: [facility], , HAND 3V LEFT, 06/11/2017, 13:21. FINDINGS: Bones: No fractures or dislocations. Carpal bones are normally aligned. No suspicious bony lesions. Soft tissues: No suspicious soft tissue calcifications. IMPRESSION: Negative examination as above. If the patient's pain or other symptoms persist, consider further evaluation with MRI Dictated by: Danilo Richardson M.D. on 01/25/2020 at 16:09 Approved by: Danilo Richardson M.D. on 01/25/2020 at 16:11
== END ==
PROVIDERS: PCP Family Medicine; Referring Provider Family Medicine; Visit Provider Family Medicine
DX: M79.641 Pain in right hand (principal)
CPT/HCPCS: 73130

== ENCOUNTER → 2020-02-19 16:52 | Outpatient (CLI) | payer OTHER, MEDICAID, SELFPAY ==
[2020-02-24 11:10] LABS: Chlamydia trachomatis Negative (Negative); Mycoplasma genitalium Negative (Negative); Neisseria gonorrhoeae Negative (Negative)
== END ==
PROVIDERS: PCP Family Medicine; Visit Provider Specialist
DX: Z11.3 Encounter for screening for infections with a predominantly sexual mode of transmission (principal)
CPT/HCPCS: 87491; 87591

== ENCOUNTER → 2020-03-09 12:55 | Outpatient (CLI) | payer OTHER, MEDICAID, SELFPAY ==
--- NOTE | 2020-03-09 12:57 | DI.RAD.S_ITS ---
PROCEDURE: XR FOOT RT MIN 3V INDICATIONS: R foot pain TECHNIQUE: 3 views of the foot were acquired. COMPARISON: None. FINDINGS: Bones: No fractures or dislocations. No suspicious bony lesions. Soft tissues: No tibiotalar joint effusion. Achilles tendon appears normal. IMPRESSION: No acute radiographic findings. If there is continued pain, followup exam or additional imaging such as MRI or CT could be performed for further assessment. Dictated by: Hilda Sheikh M.D. on 03/09/2020 at 16:21 Approved by: Hilda Sheikh M.D. on 03/09/2020 at 16:22
== END ==
PROVIDERS: PCP Family Medicine; Referring Provider Family Medicine; Visit Provider Family Medicine
DX: M79.671 Pain in right foot (principal)
CPT/HCPCS: 73630

== ENCOUNTER → 2020-05-31 10:11 | Outpatient (CLI) | payer OTHER, MEDICAID, SELFPAY ==
--- NOTE | 2020-05-31 10:14 | DI.RAD.S_ITS ---
PROCEDURE: XR CERVICAL SPINE 2V OR 3V INDICATIONS: Back pain TECHNIQUE: 3 view(s) of the cervical spine were acquired. COMPARISON: None. FINDINGS: Bones: No fractures or dislocations to the T1 level. The lateral masses of C1 appear intact on the odontoid view. No suspicious bony lesions. Note is made of moderately severe degenerative disc disease at C5-6 Soft tissues: No prevertebral soft tissue swelling. IMPRESSION: No prior trauma found. Moderately severe degenerative disc disease at C5-6 without subluxation but with posterior osteophyte formation at that level that could produce significant spinal stenosis. Follow-up by MR scanning may be warranted. Dictated by: Herberth Snell M.D. on 05/31/2020 at 13:45 Approved by: Herberth Snell M.D. on 05/31/2020 at 13:46
--- NOTE | 2020-05-31 10:14 | DI.RAD.S_ITS ---
PROCEDURE: XR THORACIC SPINE 3V INDICATIONS: Back pain TECHNIQUE: 3 views of the thoracic spine were acquired. COMPARISON: [facility], CR, XR LUMBAR SPINE 2-3V, 05/31/2020, 10:20. FINDINGS: Bones: No fractures or dislocations. No suspicious bony lesions. Twelve pairs of ribs are noted, and appear intact where visualized. Soft tissues: No paravertebral stripe thickening. IMPRESSION: Minimal degenerative disc disease present along the middle 3rd of the thoracic spine, and there also is mild focal degenerative disc height reduction at L 2-L3 of the upper lumbar spine. No acute disease. Dictated by: Herberth Snell M.D. on 05/31/2020 at 13:43 Approved by: Herberth Snell M.D. on 05/31/2020 at 13:45
--- NOTE | 2020-05-31 10:14 | DI.RAD.S_ITS ---
PROCEDURE: XR LUMBAR SPINE 2-3V INDICATIONS: Back pain TECHNIQUE: 3 views of the lumbar spine were acquired. COMPARISON: [facility]ated [facility], CR, L-SPINE 2-3 VIEWS, 04/23/2013, 17:51. Located Within [facility], CR, L-SPINE 2-3 VIEWS, 04/09/2013, 16:57. FINDINGS: Bones: 5 [id number] vertebrae are present. There is normal bony alignment. No vertebral body compression fractures. No suspicious bony lesions. Soft tissues: Overlying bowel gas pattern is normal. No suspicious soft tissue calcifications. IMPRESSION: Convex rightward scoliosis centered at the L2 level of the lumbosacral spine. Mild degenerative disc disease seen at L3-4 and L4-5. No compression fracture found. No subluxation present. Mild facet osteoarthritis at L5-S1. Dictated by: Herberth Snell M.D. on 05/31/2020 at 13:42 Approved by: Herberth Snell M.D. on 05/31/2020 at 13:43
== END ==
PROVIDERS: PCP Family Medicine; Referring Provider Family Medicine; Visit Provider Family Medicine
DX: M54.9 Dorsalgia, unspecified (principal); M51.36 Other intervertebral disc degeneration, lumbar region; M47.817 Spondylosis without myelopathy or radiculopathy, lumbosacral region; M50.322 Other cervical disc degeneration at C5-C6 level; M41.86 Other forms of scoliosis, lumbar region
CPT/HCPCS: 72040; 72072; 72100

== ENCOUNTER 2020-08-24 14:31 | Emergency (ER) | payer OTHER, MEDICAID, SELFPAY ==
[2020-08-24 14:37] VITALS: BP 110/63; PULSE 80; RESP 18; TEMP 36.3; O2SAT 98
--- NOTE | 2020-08-24 15:22 | DI.RAD.S_ITS ---
PROCEDURE: XR NASAL BONES MIN 3V INDICATIONS: nose injury TECHNIQUE: 3 views of the nasal bones acquired. COMPARISON: None. FINDINGS: Bones: No fractures or dislocations. Nasal septum is midline. Normal nasociliary nerve grooves are noted. Soft tissues: No suspicious soft tissue calcifications. IMPRESSION: No evidence of displaced nasal bone fracture. Dictated by: Robbie German M.D. on 08/24/2020 at 16:10 Approved by: Robbie German M.D. on 08/24/2020 at 16:11
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
[2020-08-24] MEDS: LIDO 1%/SOD BICARB 8.4% (10ML) 10 ML SYRINGE INJ (18:48)
[2020-08-24] MEDS: BACITRACIN OINT 0.9 GM PCKT 1 APPLIC TOP (18:48)
[2020-08-24 19:06] VITALS: PULSE 82; O2SAT 99
[2020-08-24 19:07] VITALS: BP 110/68; PULSE 80; O2SAT 99
== END 2020-08-24 19:28 | disposition home or self-care (01) ==
PROVIDERS: Emergency Provider Emergency Medicine; PCP Family Medicine
DX: S01.21XA Laceration without foreign body of nose, initial encounter (principal); W22.8XXA Striking against or struck by other objects, initial encounter
CPT/HCPCS: 12011; 70160; 99283

== ENCOUNTER → 2020-09-26 11:15 | Outpatient (CLI) | payer OTHER, MEDICAID, SELFPAY ==
--- NOTE | 2020-09-26 11:17 | DI.MG.S_ITS ---
BILATERAL DIGITAL SCREENING MAMMOGRAM 3D/2D WITH CAD: 09/26/2020 CLINICAL: Routine screening. Family history of breast cancer. Comparison is made to exams dated: 09/02/2018 mammogram, 12/29/2015 mammogram, 07/05/2015 mammogram, 12/28/2014 mammogram, and 06/18/2014 mammogram - [facility]. The tissue of both breasts is heterogeneously dense. This may lower the sensitivity of mammography. Current study was also evaluated with a Computer Aided Detection (CAD) system. There are calcifications in both breasts. No significant masses, calcifications, or other findings are seen in either breast. There has been no significant interval change. IMPRESSION: BENIGN There is no mammographic evidence of malignancy. A 1 year screening mammogram is recommended. This exam was interpreted at Station ID: [id number]. NOTE: For mammograms, a report in lay terms will be sent to the patient. Approximately 15% of breast malignancies will not be visualized mammographically. In the management of a palpable breast mass, a negative mammogram must not discourage biopsy of a clinically suspicious lesion. Electronically Signed By: Magdiel Merritt M.D. aty/:09/26/2020 12:15:30 copy to: César Mercado letter sent: Normal Exam ACR BI-RADS Category 2: Benign Finding(s) [id number]
== END ==
PROVIDERS: PCP Family Medicine; Referring Provider Specialist; Visit Provider Specialist
DX: Z12.31 Encounter for screening mammogram for malignant neoplasm of breast (principal); Z80.3 Family history of malignant neoplasm of breast
CPT/HCPCS: 77063; 77067

== ENCOUNTER → 2020-12-29 08:40 | Outpatient (CLI) | payer OTHER, MEDICAID, SELFPAY ==
[2020-12-29 09:12] LABS: Add Manual Diff / Slide Review NO; Basophils Absolute Auto 0 /uL (0-100); Basophils Percent Auto 0.5 % (0-2); Eosinophils Absolute Auto 200 /uL (0-450); Eosinophils Percent Auto 2.7 % (2-4); Lymphocytes Absolute Auto 1600 /uL (1100-4500); Lymphocytes Percent Auto 28.2 % (25-40); Mean Corpuscular HGB Conc 34.1 % (30-36); Mean Corpuscular Hemoglobin 31.5 PG (26-34); Mean Corpuscular Volume 92.4 fL (80-100); Monocytes Absolute Auto 500 /uL (0-900); Neutrophils Absolute Auto 3500 /uL (1500-7000); Neutrophils Percent Auto 60.6 % (50-75); Platelet Count 284 X10^3/uL (150-400); Red Blood Cell Count 4.11 X10^6/uL (4.0-5.2); Red Cell Distribution Width 12.9 % (11.6-14.8); White Blood Cell Count 5.8 X10^3/uL (4.5-11.0)
[2020-12-29 09:26] LABS: Alanine Aminotransferase 28 IU/L (<35); Albumin Globulin Ratio 1.6 (1.0-2.8); Alkaline Phosphatase 52 U/L (38-126); Aspartate Aminotransferase 32 IU/L (14-36); BUN Creatinine Ratio 19.7 (6-22); Bilirubin Total 0.4 mg/dL (0.2-1.3); Blood Urea Nitrogen 13 mg/dL (7-17); Calcium 9.2 mg/dL (8.4-10.2); Carbon Dioxide 25 mmol/L (22-32); Chloride 106 mmol/L (98-107); Cholesterol 176 mg/dL (140-199); Estimated Glomerular Filt Rate > 60.0 mL/min (>60); Globulin 2.5 g/dL (1.7-4.1); Glucose 90 mg/dL (70-100); HDL Cholesterol 70 mg/dL (40-60); HEMOLYSIS < 15 (0-50); LDL Cholesterol Calculated 85 mg/dL (<100); Potassium 4.1 mmol/L (3.4-5.1); Sodium 137 mmol/L (137-145); Total Protein 6.5 g/dL (6.3-8.2); Triglycerides 103 mg/dL (35-150)
[2020-12-29 09:55] LABS: TSH w/ Reflex to FT4 1.54 uIU/mL (0.47-4.68)
[2020-12-29 14:35] LABS: Urine N gonorrhoeae NOT DETECTED
[2020-12-29 14:52] LABS: Urine Chlamydia NOT DETECTED
== END ==
PROVIDERS: PCP Family Medicine; Visit Provider Family Medicine
DX: Z11.3 Encounter for screening for infections with a predominantly sexual mode of transmission (principal); Z11.8 Encounter for screening for other infectious and parasitic diseases; E03.9 Hypothyroidism, unspecified; G43.909 Migraine, unspecified, not intractable, without status migrainosus
CPT/HCPCS: 36415; 80053; 80061; 81025; 84443; 85025; 87491; 87591

== ENCOUNTER → 2021-04-13 15:00 | Outpatient (CLI) | payer OTHER, MEDICAID, SELFPAY ==
--- NOTE | 2021-04-13 15:07 | DI.RAD.S_ITS ---
PROCEDURE: XR ELBOW RT MIN 3V INDICATIONS: Right elbow pain TECHNIQUE: 3 views of the elbow were acquired. COMPARISON: None. FINDINGS: Bones: No fractures or dislocations. No suspicious bony lesions. Soft tissues: No elbow joint effusion. No suspicious soft tissue calcifications. IMPRESSION: No elbow fracture or dislocation. No joint effusion. Dictated by: Jhoan Lopes M.D. on 04/13/2021 at 16:39 Approved by: Jhoan Lopes M.D. on 04/13/2021 at 16:40
== END ==
PROVIDERS: PCP Family Medicine; Referring Provider Physician Assistant; Visit Provider Physician Assistant
DX: M25.521 Pain in right elbow (principal); M77.11 Lateral epicondylitis, right elbow
CPT/HCPCS: 73080

== ENCOUNTER → 2021-09-14 12:46 | Outpatient (CLI) | payer OTHER, MEDICAID, SELFPAY ==
[2021-09-14 13:28] LABS: Add Manual Diff / Slide Review NO; Basophils Absolute Auto 0 /uL (0-100); Basophils Percent Auto 0.5 % (0-2); Eosinophils Absolute Auto 200 /uL (0-450); Eosinophils Percent Auto 2.1 % (2-4); Hematocrit 38.5 % (36-46); Hemoglobin 13.4 g/dL (12.0-16.0); Lymphocytes Absolute Auto 1500 /uL (1100-4500); Lymphocytes Percent Auto 19.5 % (25-40); Mean Corpuscular HGB Conc 34.9 % (30-36); Mean Corpuscular Hemoglobin 32.3 PG (26-34); Mean Corpuscular Volume 92.7 fL (80-100); Monocytes Absolute Auto 500 /uL (0-900); Monocytes Percent Auto 6.4 % (3-14); Neutrophils Absolute Auto 5400 /uL (1500-7000); Neutrophils Percent Auto 71.5 % (50-75); Platelet Count 338 X10^3/uL (150-400); Red Blood Cell Count 4.15 X10^6/uL (4.0-5.2); Red Cell Distribution Width 13.3 % (11.6-14.8); White Blood Cell Count 7.5 X10^3/uL (4.5-11.0)
[2021-09-14 13:49] LABS: Alanine Aminotransferase 24 IU/L (<35); Albumin 4.7 g/dL (3.5-5.0); Albumin Globulin Ratio 1.5 (1.0-2.8); Alkaline Phosphatase 56 U/L (38-126); Aspartate Aminotransferase 30 IU/L (14-36); Bilirubin Total 0.4 mg/dL (0.2-1.3); Blood Urea Nitrogen 17 mg/dL (7-17); Calcium 9.3 mg/dL (8.4-10.2); Carbon Dioxide 29 mmol/L (22-32); Chloride 103 mmol/L (98-107); Estimated Glomerular Filt Rate > 60 mL/min (>60); Globulin 3.1 g/dL (1.7-4.1); Glucose 94 mg/dL (70-100); HEMOLYSIS < 15 (0-50); Potassium 3.8 mmol/L (3.4-5.1); Sodium 139 mmol/L (137-145); Total Protein 7.8 g/dL (6.3-8.2)
== END ==
PROVIDERS: PCP Family Medicine; Referring Provider Family Medicine; Visit Provider Family Medicine
DX: E03.9 Hypothyroidism, unspecified (principal); F41.9 Anxiety disorder, unspecified; M79.671 Pain in right foot; M79.7 Fibromyalgia; R53.83 Other fatigue
CPT/HCPCS: 36415; 80053; 84443; 85025

== ENCOUNTER → 2021-10-11 16:53 | Outpatient (CLI) | payer OTHER, MEDICAID, SELFPAY ==
[2021-10-15 06:11] LABS: Chlamydia trachomatis Negative (Negative); Mycoplasma genitalium Negative (Negative); Neisseria gonorrhoeae Negative (Negative)
== END ==
PROVIDERS: PCP Family Medicine; Visit Provider Specialist
DX: Z11.3 Encounter for screening for infections with a predominantly sexual mode of transmission (principal)
CPT/HCPCS: 87210; 87491; 87563; 87591

== ENCOUNTER 2021-10-29 10:47 | Emergency (ER) | payer OTHER, MEDICAID, SELFPAY ==
[2021-10-29 11:20] VITALS: BP 132/78; PULSE 110; RESP 29; TEMP 36.2; O2SAT 99; BMI 26.7
[2021-10-29] MEDS: LEVOTHYROXINE 88 MCG TABLET PO (13:05)
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
[2021-10-29 14:29] LABS: Add Manual Diff / Slide Review NO; Basophils Absolute Auto 0 /uL (0-100); Basophils Percent Auto 0.8 % (0-2); Eosinophils Absolute Auto 200 /uL (0-450); Eosinophils Percent Auto 2.6 % (2-4); Hematocrit 37.5 % (36-46); Lymphocytes Absolute Auto 1600 /uL (1100-4500); Lymphocytes Percent Auto 26.4 % (25-40); Mean Corpuscular HGB Conc 34.6 % (30-36); Mean Corpuscular Hemoglobin 32.2 PG (26-34); Monocytes Absolute Auto 400 /uL (0-900); Monocytes Percent Auto 6.6 % (3-14); Neutrophils Absolute Auto 3900 /uL (1500-7000); Neutrophils Percent Auto 63.6 % (50-75); Platelet Count 309 X10^3/uL (150-400); Red Blood Cell Count 4.04 X10^6/uL (4.0-5.2); Red Cell Distribution Width 12.9 % (11.6-14.8); White Blood Cell Count 6.2 X10^3/uL (4.5-11.0)
[2021-10-29 14:35] LABS: Alanine Aminotransferase 23 IU/L (<35); Albumin 4.2 g/dL (3.5-5.0); Albumin Globulin Ratio 1.5 (1.0-2.8); Alkaline Phosphatase 61 U/L (38-126); Aspartate Aminotransferase 25 IU/L (14-36); BUN Creatinine Ratio 9.9 (6-22); Bilirubin Total 0.3 mg/dL (0.2-1.3); Blood Urea Nitrogen 7 mg/dL (7-17); Calcium 8.6 mg/dL (8.4-10.2); Carbon Dioxide 27 mmol/L (22-32); Chloride 107 mmol/L (98-107); Estimated Glomerular Filt Rate > 60 mL/min (>60); Ethanol (ETOH) < 10 mg/dL; Globulin 2.8 g/dL (1.7-4.1); Glucose 83 mg/dL (70-100); HEMOLYSIS < 15 (0-50); Potassium 3.7 mmol/L (3.4-5.1); Sodium 139 mmol/L (137-145)
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
[2021-10-29 15:06] LABS: Thyroid Stimulating Hormone 1.39 uIU/mL (0.47-4.68)
--- NOTE | 2021-10-29 16:31 | PC.NURSE ---
patient is currently talking to FISHERIES SPECIALIST over the phone.
--- NOTE | 2021-10-29 18:45 | PC.NURSE ---
Finished with talking with ER
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
== END 2021-10-29 18:53 | disposition home or self-care (01) ==
PROVIDERS: Emergency Provider Emergency Medicine; PCP Family Medicine
DX: R45.851 Suicidal ideations (principal); F41.9 Anxiety disorder, unspecified; F43.0 Acute stress reaction; F32.9 Major depressive disorder, single episode, unspecified
CPT/HCPCS: 36415; 80053; 80320; 84443; 85025; 99283; 99284

== ENCOUNTER → 2022-02-07 11:24 | Outpatient (CLI) | payer OTHER, MEDICAID, SELFPAY ==
[2022-02-07 13:38] LABS: Hemoglobin 12.8 g/dL (12.0-16.0); Mean Corpuscular HGB Conc 35.5 % (30-36); Mean Corpuscular Hemoglobin 32.3 PG (26-34); Platelet Count 289 X10^3/uL (150-400); Red Blood Cell Count 3.96 X10^6/uL (4.0-5.2); Red Cell Distribution Width 12.5 % (11.6-14.8); White Blood Cell Count 5.5 X10^3/uL (4.5-11.0)
[2022-02-07 17:26] LABS: Follicle Stimulating Hormone 4.43 mIU/mL
== END ==
PROVIDERS: PCP Family Medicine; Referring Provider Obstetrics & Gynecology; Visit Provider Obstetrics & Gynecology
DX: N92.6 Irregular menstruation, unspecified (principal)
CPT/HCPCS: 36415; 83001; 85027

== ENCOUNTER → 2022-02-14 15:05 | Outpatient (CLI) | payer OTHER, MEDICAID, SELFPAY ==
--- NOTE | 2022-02-14 15:06 | DI.US.S_ITS ---
PROCEDURE: US PELVIC COMPLETE INDICATIONS: Irregular bleeding TECHNIQUE: Real-time scanning was performed of the pelvic organs, with image documentation. Additional endovaginal scanning was necessary due to incomplete visualization of the adnexal and endometrial structures by transabdominal scanning. COMPARISON: [facility], US, US PELVIC COMPLETE, 01/19/2021, 9:26. FINDINGS: Uterus: Uterus is anteverted and normal in size at 8.1 x 4.2 x 5.6 cm. The myometrium is mildly heterogeneous. 5 x 3 x 5 mm cyst is seen in posterior myometrium. No gross solid appearing uterine fibroid is seen. The endometrium measures 8.5 mm combined thickness. No endometrial mass or fluid is seen. Ovaries: The right ovary measures 2.7 x 2.6 x 2.3 cm, with a calculated ovarian volume of 8.6 cc. The left ovary measures 1.8 x 3.1 x 1.5 cm, with a calculated ovarian volume of 4.5 cc. Less than 12 follicles can be seen in each ovary. 1.4 x 1.1 x 1.4 cm solid-appearing echogenic structure is seen within right ovary and show minimal internal vascularity. Simple cyst is noted in left ovary measures 1.4 x 1.1 x 1.5 cm in size. Other: No pathologic free abdominal or pelvic fluid. IMPRESSION: 1. 1.4 x 1.1 x 1.4 cm solid-appearing echogenic structure within right ovary with minimal internal vascularity. This could represent endometrioma , suggest clinical correlation and sonographic follow-up. 2. Simple cyst is seen in left ovary as above. 3. No discrete uterine fibroid. No endometrial mass or fluid. Small myometrial cyst as above. We strive to produce accurate, complete, and clear reports of imaging services. To assist us in improving patient care, this report was composed using standard report templates and voice recognition software. Therefore, it may contain abnormal punctuation, insertions and/or omissions. Occasional wrong-word or sound-alike substitutions may occur. Though we review the report and make efforts to correct it, we do recommend that the report be read carefully in proper context to recognize any text inaccuracies. Dictated by: Jhoan Lopes M.D. on 02/14/2022 at 16:33 Approved by: Jhoan Lopes M.D. on 02/14/2022 at 16:36
== END ==
PROVIDERS: PCP Family Medicine; Referring Provider Obstetrics & Gynecology; Visit Provider Obstetrics & Gynecology
DX: N92.6 Irregular menstruation, unspecified (principal); N83.202 Unspecified ovarian cyst, left side
CPT/HCPCS: 76830; 76856

== ENCOUNTER → 2022-04-17 15:13 | Outpatient (CLI) | payer OTHER, MEDICAID, SELFPAY ==
[2022-04-17 18:43] LABS: Alanine Aminotransferase 20 IU/L (<35); Albumin 4.2 g/dL (3.5-5.0); Albumin Globulin Ratio 1.4 (1.0-2.8); Alkaline Phosphatase 58 U/L (38-126); Aspartate Aminotransferase 27 IU/L (14-36); Bilirubin Total 0.3 mg/dL (0.2-1.3); Bilirubin Unconjugated 0.4 mg/dL (0.0-1.1); Globulin 2.9 g/dL (1.7-4.1); HEMOLYSIS < 15 (0-50); Total Protein 7.1 g/dL (6.3-8.2)
== END ==
PROVIDERS: PCP Family Medicine; Referring Provider Family Medicine; Visit Provider Family Medicine
DX: K76.0 Fatty (change of) liver, not elsewhere classified (principal)
CPT/HCPCS: 36415; 80076

== ENCOUNTER → 2022-05-17 10:20 | Outpatient (CLI) | payer OTHER, MEDICAID, SELFPAY ==
[2022-05-17 11:51] LABS: COVID19 -Nasal RAPID Negative (Negative)
== END ==
PROVIDERS: PCP Family Medicine; Visit Provider Surgery
DX: Z20.822 Contact with and (suspected) exposure to COVID-19 (principal); Z01.812 Encounter for preprocedural laboratory examination
CPT/HCPCS: 87635; C9803

== ENCOUNTER 2022-05-18 10:42 | Day surgery (SDC) | payer OTHER, MEDICAID, SELFPAY ==
[2022-05-18] VITALS (7 sets, daily range): BP systolic 57–106; BP diastolic 55–73; PULSE 57–87; RESP 14–16; TEMP 36.6–36.9; O2SAT 98–100; BMI 25.8
--- NOTE | 2022-05-18 | PATH_ITS ---
[facility] Accession Number: [id number] . 01 Material submitted: . splenic flexure - COLON POLYP SPLENIC FLEXURE . 01 Diagnosis: Splenic Flexure, Polyp, Biopsy: Serrated lesion, favor sessile serrated adenoma. Additional levels were examined. L 05/21/2022 1603 Local . 01 Electronically signed: . Monika Deng MD, Pathologist NPI- [id number] . 01 Gross description: . COLON POLYP SPLENIC FLEXURE: Received in formalin is 1 fragment(s) of foley, soft tissue measuring 0.3 x 0.2 x 0.2 cm submitted entirely in 1 cassette(s) /CPE 05/19/2022 0904 Local . 01 Pathologist provided ICD-10: D12.3 . 01 CPT . 923741 Specimen Comment: A courtesy copy of this report has been sent to [facility] Pathology Performed at: 01 [facility] [address] [place] [address] [address] [facility], [place], [place] [id number] MD Db Delgado MD Phone: [phone]
[2022-05-18] MEDS: LACTATED RINGERS 1,000 ML 42 ML IV (11:34)
--- NOTE | 2022-05-18 13:00 | PM.HP.1 ---
History of Present Illness History of Present Illness Chief complaint: [facility] Narrative: Ms. Jha presents today for screening colonoscopy. She has a history of IBS and has had several ?bowel? problems in the past. She is had an upper endoscopy about 20 years ago and an ulcer was found she has some reflux as well. She has never had a colonoscopy. Overall her IBS symptoms consist of bloating sometimes cramping and constipation. She has no family history of colon cancer she is never had abdominal surgery. She does not take a fiber supplement daily. Patient History Medical History Chickenpox Chronic bilateral low back pain without sciatica Chronic neck pain Chronic thoracic back pain Cranial somatic dysfunction Depression Fibromyalgia (~2004) Generalized anxiety disorder GERD (gastroesophageal reflux disease) Halo nevus (~1989) Hypothyroidism (~2004) IBS (irritable bowel syndrome) Insomnia IUD (intrauterine device) in place Kidney stones Menorrhagia, premenopausal Migraines (~11/12/14) Pap smear for cervical cancer screening (~12/30/20) Paravaginal defect involving fascia of left side of pelvis (~12/30/20) Piriformis syndrome of right side Plantar warts PTSD (post-traumatic stress disorder) Restless leg syndrome Segmental and somatic dysfunction of abdomen and other regions Seizures (~1998) Somatic dysfunction of cervical region Somatic dysfunction of lower extremity Somatic dysfunction of thoracic region Tinnitus Traumatic brain injury (12/03/13) Upper extremity somatic dysfunction Vertigo (~1997) Surgical History Anesthesia History of fracture of nose (~1993) History of lithotripsy (~2006) Vacuum extractor delivery, delivered Family & Social History Family History Father Age: 76 Cancer Diabetes mellitus High cholesterol Depression Mother Age: 73 High cholesterol Grandfather AA (alcohol abuse) Grandmother AA (alcohol abuse) Social History: household members family Tobacco & Substance use: Smoking Status Never smoker alcohol intake current alcohol intake frequency 0-2 drinks per day Substance Use Type does not use Meds Home Medications and Allergies Home Medications Medication Instructions Recorded Confirmed Type fluticasone propionate 50 2 spray intranasal DAILY PRN nasal 01/04/21 05/18/22 Rx mcg/actuation nasal congestion #19.8 mL spray,suspension lorazepam 0.5 mg tablet 0.5 mg PO BEDTIME PRN insomnia #20 12/18/21 05/18/22 Rx tabs tryptophan 500 mg capsule 500 mg PO BEDTIME 02/05/22 05/18/22 History levothyroxine 88 mcg tablet See Rx Instructions .Route 04/16/22 05/18/22 Rx .COMPLEX #90 tabs Allergies Allergy/AdvReac Type Severity Reaction Status Date / Time codeine [CODEINE] Allergy Mild itching Verified 05/18/22 10:59 divalproex sodium Allergy Mild itching Verified 05/18/22 10:59 [From DEPAKOTE] meperidine [From DEMEROL] Allergy Mild itching Verified 05/18/22 10:59 phenytoin [From DILANTIN] Allergy Mild itching Verified 05/18/22 10:59 Exam Vital Signs (past 8 hours): - 05/18/22 11:10 Temperature 98.5 F Pulse Rate 87 Respiratory Rate 14 Blood Pressure 106/66 Pulse Oximetry 100 Oxygen Delivery Method Room Air Oxygen Delivery Method Room Air Const General: cooperative, healthy appearing and comfortable HENNY Head: normal to inspection Resp Effort & Inspection: normal respiratory effort and able to speak in complete sentences Cardio Pulses: radial pulses present GI Palpation: soft and No tender Assessment & Plan Assessment and plan (1) Screening for colon cancer: Status: Acute Plan I discussed the risks benefits and alternatives to a screening colonoscopy today. The risks I discussed include but are not limited to incomplete examination and perforation of the colon. All of her questions were answered and she would like to proceed. Time Spent With Patient Critical Care time: I spent a total of [] minutes of critical care time on this patient's care today; this time is exclusive of procedural time.
--- NOTE | 2022-05-18 13:15 | SUR.OPER ---
GLASSES IN LABELED BAG TO PACU WITH PATIENT.
--- NOTE | 2022-05-18 13:54 | P.OP.COLON_ITS ---
Procedure & Clinicians Study performed: Colonoscopy and biopsy Same procedure as scheduled: Yes Indications: Screening for colon cancer Surgeon: Carol Santana Procedure Notes Procedure in detail: Patient was taken to the endoscopy suite and placed in left lateral decubitus position a time-out was performed. Conscious sedation was induced by anesthesia provider. A digital rectal exam was performed there were no masses or strictures. The colonoscope was introduced into the anal canal and advanced through to the cecum. A photograph of the appendiceal orifice was obtained. The scope was then withdrawn for 16 minutes. During this time included biopsy of a very small polyp seen at the splenic flexure. In the cecum there were 1 maybe 2 diverticula. Hemorrhoidal piles looked unremarkable the scope was retroflexed and a photograph was taken. Specimen(s): other (1. small polyp at splenic flexure ) Complications: none Post-procedure Plan for aftercare: Depending on pathology of this polyp follow-up will probably be between 7-10 y ears for continued screening without a family history. If there is a change in her family history or change in symptoms then scope may be recommended sooner.
== END 2022-05-18 14:37 | disposition home or self-care (01) ==
PROVIDERS: Surgery; PCP Family Medicine; Referring Provider Surgery; Visit Provider Surgery
PROC: 0DJD8ZZ Inspection of Lower Intestinal Tract, Via Natural or Artificial Opening Endoscopic (ICD-10-PCS; CPT 45378; principal; 2022-05-18 11:45)
DX: Z12.11 Encounter for screening for malignant neoplasm of colon (principal); K57.30 Diverticulosis of large intestine without perforation or abscess without bleeding; K64.9 Unspecified hemorrhoids; D12.3 Benign neoplasm of transverse colon
CPT/HCPCS: 45380; J2704

== ENCOUNTER → 2022-06-14 16:50 | Outpatient (CLI) | payer OTHER, MEDICAID, SELFPAY ==
--- NOTE | 2022-06-14 16:51 | DI.RAD.S_ITS ---
PROCEDURE: XR CERVICAL SPINE 2V OR 3V INDICATIONS: chronic neck pain TECHNIQUE: Three view(s) of the cervical spine were acquired. COMPARISON: [facility], CR, XR CERVICAL SPINE 2V OR 3V, 05/31/2020, 10:20. FINDINGS: Bones: No fractures or dislocations to the T1 level. Grade 1 retrolisthesis C4 on five and C5 and six. Moderate endplate spurs posteriorly at C5-6 and to lesser extent at C4-5. Mildly decreased disc spaces at these levels. The lateral masses of C1 appear intact on the odontoid view. No suspicious bony lesions. Soft tissues: No prevertebral soft tissue swelling. IMPRESSION: 1. Spondylosis and spondylolisthesis at C4-5 and C5-6, stable in severity compared to the prior study. Dictated by: Sri Miller M.D. on 06/14/2022 at 17:36 Approved by: Sri Miller M.D. on 06/14/2022 at 17:37
== END ==
PROVIDERS: PCP Family Medicine; Referring Provider Family Medicine; Visit Provider Family Medicine
DX: M47.812 Spondylosis without myelopathy or radiculopathy, cervical region (principal); M43.12 Spondylolisthesis, cervical region; M54.2 Cervicalgia; G89.29 Other chronic pain
CPT/HCPCS: 72040

== ENCOUNTER 2022-11-05 12:00 | Outpatient (RCR) | payer OTHER, MEDICAID, SELFPAY ==
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
--- NOTE | 2022-08-20 16:46 | PT.OPPOC ---
Physical, Occupational & Speech Therapy At [facility] Current Diagnoses Other chronic pain (08/20/22) Radiculopathy, cervical region (08/20/22) Cervicalgia (08/20/22) Pain in thoracic spine (08/20/22) Fibromyalgia (08/20/22) Visit Care Team Role Provider Type César Mercado MD Family Provider Physician Specialty: Family Practice Address: [address] [place] [address], [id number] Email: [email or web address] Terri Samuel DO Attending Provider Physician Primary Care Provider Referring Provider Specialty: Medical Address: [address] [place] [address], [address], [place], [address] Email: [email or web address] Plan Of Care PT-OP-T Assessment and Plan Start: 08/20/22 18:07 Freq: Status: Active Protocol: Document 08/20/22 16:00 DCW (Rec: 08/21/22 10:14 DCW [id number]) Physical Therapy Assessment Rehab Potential Rehabilitation Potential Good Evaluation Complexity Number of Personal Factors/Comorbidities 3 or More Number of Body Systems Impaired 3 Clinical Presentation at Evaluation Unstable Impairments Impairments Activity Tolerance,Functional Activities,Functional Mobility ,Pain,ROM,Soft Tissue Mobility ,Strength,Tone Goals Three Impairment Pt unable to participate in her usual hobby of dancing due to neck pain Half-Way Goal (LTG) Pt to return to dancing 1x/ week without increased neck pain LTG Duration 10/20/22 Two Impairment Pt presents with significantly limited cervical ROM Half-Way Goal (LTG) Pt to increase cervical rotation bilaterally to at least 45? bilaterally to improve ability to turn her head to look for oncoming traffic while driving LTG Duration 10/20/22 One Impairment Pt does not have an appropriate home exercise program Short Term Goal (STG) Pt to be independent and compliant with an appropriate HEP STG Duration 09/19/22 Assessment Summary Assessment Pt presents with signs and symptoms consistent with referring diagnosis. Pt is showing some signs of improvement with other treatments, OMT, energy manipulation, and acupuncture, however would benefit from STM, cervical strengthening, and stretching. Pt exhibiting fairly significant loss of cervical mobility in all planes, and pain limits participation in most of her usual activities. Pt does display significant increased tone R>L along upper traps, SCM, scalenes, and levator. Physical Therapy Plan Frequency and Duration Frequency of Treatment 2x/Week Plan of Care Start Date 08/20/22 Plan of Care End Date 10/20/22 Therapeutic Interventions Therapeutic Interventions Home Exercise Program,Joint Mobilizations,Manual Therapy, Patient/Caregiver Education, Self-Care/Home Management,Soft Tissue Mobilization, Therapeutic Activities, Therapeutic Exercises Modalities Cold Pack/Ice Massage,Electric Stimulation,Hot Packs, Ultrasound Next Visit Focus/Plan Next Note Type Treatment Note Next Visit Plan STM, stretching, cervical strengthening Plan of Care Dates Plan of Care Start Date 08/20/22 Plan of Care End Date 10/20/22 Electronically Signed by: Brigido Perdue, PT 08/21/22 1016 If you are in agreement with this Plan of Care, please return a signed and dated copy. I have reviewed this Plan of Care and certify that the skilled therapy services above are required to meet the patient?s needs. Physician Signature Date Printed Name and Credentials Clinical Instructor Signature Printed Name and Credentials
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
--- NOTE | 2022-10-18 15:36 | PT.OPPOC ---
Physical, Occupational & Speech Therapy At [facility] Current Diagnoses Other chronic pain (10/18/22) Radiculopathy, cervical region (10/18/22) Cervicalgia (10/18/22) Pain in thoracic spine (10/18/22) Fibromyalgia (10/18/22) Visit Care Team Role Provider Type César Mercado MD Family Provider Physician Specialty: Family Practice Address: [address] [place] [address], [id number] Email: [email or web address] Terri Samuel DO Attending Provider Physician Primary Care Provider Referring Provider Specialty: Medical Address: [address] [place] [address], [address], [place], [address] Email: [email or web address] Plan Of Care PT-OP-T Assessment and Plan Start: 08/20/22 18:07 Freq: Status: Active Protocol: Document 10/18/22 14:57 DCW (Rec: 10/18/22 15:36 DCW [id number]) Physical Therapy Assessment Goals Three Impairment Pt unable to participate in her usual hobby of dancing due to neck pain Snf Goal (LTG) Pt to return to dancing 1x/ week without increased neck pain LTG Duration 11/19/22 Two Impairment Pt presents with significantly limited cervical ROM Snf Goal (LTG) Pt to increase cervical rotation bilaterally to at least 45? bilaterally to improve ability to turn her head to look for oncoming traffic while driving LTG Duration Met One Impairment Pt does not have an appropriate home exercise program Short Term Goal (STG) Pt to be independent and compliant with an appropriate HEP STG Duration 11/19/22 Assessment Summary Assessment Pt making good improvement in both ROM and muscle tone, significant decrease in overall pain levels. Still displays some stiffness and general soreness/discomfort, will likely continue to progress with skilled therapy focusing on mobility, tone management, and pain control. Physical Therapy Plan Frequency and Duration Frequency of Treatment 2x/Week Plan of Care Start Date 10/18/22 Plan of Care End Date 12/18/22 Therapeutic Interventions Therapeutic Interventions Home Exercise Program,Joint Mobilizations,Manual Therapy, Patient/Caregiver Education, Self-Care/Home Management,Soft Tissue Mobilization, Therapeutic Activities, Therapeutic Exercises Modalities Cold Pack/Ice Massage,Electric Stimulation,Hot Packs, Ultrasound Next Visit Focus/Plan Next Note Type Treatment Note Next Visit Plan Check if received script at MD appt (after last PT tx) for CS traction unit stated recommended in DC ER packet. POC: STM, stretching, cervical strengthening if tolerated Plan of Care Dates Plan of Care Start Date 10/18/22 Plan of Care End Date 12/18/22 Electronically Signed by: Brigido Perdue, PT 10/18/22 7917 If you are in agreement with this Plan of Care, please return a signed and dated copy. I have reviewed this Plan of Care and certify that the skilled therapy services above are required to meet the patient?s needs. Physician Signature Date Printed Name and Credentials Clinical Instructor Signature Printed Name and Credentials
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
== END 2022-11-06 12:24 | disposition home or self-care (01) ==
LOC: PHYS 12:00
PROVIDERS: Family Provider Family Medicine; PCP Family Medicine; Referring Provider Family Medicine; Visit Provider Family Medicine
DX: M54.12 Radiculopathy, cervical region (principal); M54.2 Cervicalgia; G89.29 Other chronic pain; M54.6 Pain in thoracic spine; M79.7 Fibromyalgia
CPT/HCPCS: 97010; 97110; 97140; 97162

== ENCOUNTER → 2022-12-05 11:52 | Outpatient (CLI) | payer OTHER, MEDICAID, SELFPAY ==
[2022-12-06 04:07] LABS: Hepatitis A Ab Total Negative (Negative)
[2022-12-06 17:59] LABS: HIV 1 & 2 Ab/Ag 4th Gen Combo NEGATIVE (NEGATIVE); Hep C Virus Ab w/Reflex Quant NEGATIVE s/c (NEGATIVE)
[2022-12-07 01:15] LABS: HSV 2 IGG AB < 0.91 index (0.00-0.90); HSV1IGG < 0.91 index (0.00-0.90)
[2022-12-07 06:33] LABS: Hepatitis B Surf Ab Qualitativ Non Reactive (.)
[2022-12-07 08:10] LABS: RPR Screen Non Reactive (Non Reactive)
== END ==
PROVIDERS: Specialist; Family Provider Family Medicine; PCP Family Medicine; Referring Provider Family Medicine; Visit Provider Family Medicine
DX: R79.89 Other specified abnormal findings of blood chemistry (principal); Z20.2 Contact with and (suspected) exposure to infections with a predominantly sexual mode of transmission
CPT/HCPCS: 36415; 86592; 86695; 86696; 86706; 86708; 86803; 87389

== ENCOUNTER → 2022-12-11 09:48 | Outpatient (CLI) | payer OTHER, MEDICAID, SELFPAY ==
--- NOTE | 2022-12-11 09:49 | DI.CT.S_ITS ---
PROCEDURE: CT CHEST W CON INDICATIONS: incidental finding: mediastinal lymphadenopathy TECHNIQUE: After the administration of intravenous contrast, 5 mm thick sections acquired from the pulmonary apices to the posterior costophrenic angles. 1 mm axial lung, 5 mm thick coronal and sagittal reformats and 7 mm axial MIP were acquired. For radiation dose reduction, the following was used: automated exposure control, adjustment of mA and/or kV according to patient size. COMPARISON: [facility], CT, CT CERVICAL SPINE WITHOUT CONTRAST, 10/04/2022, 15:15. FINDINGS: Image quality: Excellent. Lungs and pleura: No acute air space opacities. No pleural effusions or pneumothorax. Central and peripheral airways are patent and normal in caliber. Mediastinum: Heart size is normal. No pericardial effusion. Mediastinal and hilar adenopathy is present. The anterior right paratracheal lymph node measures 1.5 cm on series 2, image 21. Thoracic aorta and central pulmonary arteries are normal in size. Esophagus is normal in caliber. No hiatal hernia. Bones and chest wall: No suspicious bony lesions. No vertebral body compression fractures. No axillary or supraclavicular adenopathy by size criteria. Thyroid gland is unremarkable . Abdomen: Visualized upper abdominal solid organs appear normal. Upper abdominal bowel loops are normal in caliber. IMPRESSION: Mediastinal and hilar adenopathy is present. While this could be reactive in nature, etiology such as malignancy should be considered. Dictated by: Cheli Trujillo M.D. on 12/11/2022 at 13:43 Approved by: Cheli Trujillo M.D. on 12/11/2022 at 13:48
== END ==
PROVIDERS: Family Provider Family Medicine; PCP Family Medicine; Referring Provider Family Medicine; Visit Provider Family Medicine
DX: R59.0 Localized enlarged lymph nodes (principal)
CPT/HCPCS: 71260

== ENCOUNTER → 2023-01-28 16:09 | Outpatient (CLI) | payer OTHER, MEDICAID, SELFPAY ==
--- NOTE | 2023-01-28 16:10 | DI.MG.S_ITS ---
BILATERAL DIGITAL SCREENING MAMMOGRAM 3D/2D WITH CAD: 01/28/2023 CLINICAL: Routine screening. Family history of breast cancer. Comparison is made to exams dated: 09/26/2020 mammogram, 09/02/2018 mammogram, and 12/29/2015 mammogram - [facility]. Both breasts are heterogeneously dense, which may obscure small masses (category c / 51-75% glandular tissue). Current study was also evaluated with a Computer Aided Detection (CAD) system. There are benign calcifications in both breasts. No significant masses, calcifications, or other findings are seen in either breast. There has been no significant interval change. IMPRESSION: BENIGN There is no mammographic evidence of malignancy. A 1 year screening mammogram is recommended. Based on the Tyrer Cuzick model (a risk assessment model) the patient's lifetime risk is 14.7% and her 10 year risk is 3.2%. According to the ACR, ACS, and NCCN guidelines, an annual breast MRI exam along with mammogram is recommended if the patient's lifetime risk is 20% or greater. This exam was interpreted at Station ID: [id number]. NOTE: For mammograms, a report in lay terms will be sent to the patient. Approximately 15% of breast malignancies will not be visualized mammographically. In the management of a palpable breast mass, a negative mammogram must not discourage biopsy of a clinically suspicious lesion. Electronically Signed By: Hilda ramos/michele:01/29/2023 11:17:05 copy to: César Mercado letter sent: Normal Exam ACR BI-RADS Category 2: Benign Finding(s) [id number]
== END ==
PROVIDERS: Family Provider Family Medicine; PCP Family Medicine; Referring Provider Family Medicine; Visit Provider Family Medicine
DX: Z12.31 Encounter for screening mammogram for malignant neoplasm of breast (principal); Z80.3 Family history of malignant neoplasm of breast
CPT/HCPCS: 77063; 77067

== ENCOUNTER → 2023-02-20 16:39 | Outpatient (CLI) | payer OTHER, MEDICAID, SELFPAY ==
[2023-02-20 17:59] LABS: Free T4, Direct Thyroxine 1.18 ng/dL (0.78-2.19)
[2023-02-20 18:13] LABS: Thyroid Stimulating Hormone 1.07 uIU/mL (0.47-4.68)
== END ==
PROVIDERS: Family Provider Family Medicine; PCP Family Medicine; Referring Provider Family Medicine; Visit Provider Family Medicine
DX: E03.9 Hypothyroidism, unspecified (principal)
CPT/HCPCS: 36415; 84439; 84443; 84481

== ENCOUNTER → 2023-05-20 10:59 | Outpatient (CLI) | payer OTHER, MEDICAID, SELFPAY ==
[2023-05-20 13:46] LABS: Urine Chlamydia NOT DETECTED; Urine N gonorrhoeae NOT DETECTED
== END ==
PROVIDERS: PCP Family Medicine; Visit Provider Physician Assistant Medical
DX: Z20.2 Contact with and (suspected) exposure to infections with a predominantly sexual mode of transmission (principal)
CPT/HCPCS: 87491; 87591

== ENCOUNTER → 2023-05-20 11:05 | Outpatient (CLI) | payer OTHER, MEDICAID, SELFPAY ==
[2023-05-20 14:14] LABS: Alanine Aminotransferase 22 IU/L (<35); Albumin Globulin Ratio 1.3 (1.0-2.8); Alkaline Phosphatase 63 U/L (38-126); Aspartate Aminotransferase 30 IU/L (14-36); Bilirubin Total 0.7 mg/dL (0.2-1.3); Blood Urea Nitrogen 8 mg/dL (7-17); Calcium 9.5 mg/dL (8.4-10.2); Carbon Dioxide 25 mmol/L (22-32); Chloride 104 mmol/L (98-107); Cholesterol 212 mg/dL (140-199); Estimated Glomerular Filt Rate > 60 mL/min (>60); Globulin 3.2 g/dL (1.7-4.1); Glucose 87 mg/dL (70-100); HDL Cholesterol 79 mg/dL (40-60); HEMOLYSIS < 15 (0-50); LDL Cholesterol Calculated 114 mg/dL (<100); Potassium 3.7 mmol/L (3.4-5.1); Sodium 134 mmol/L (137-145); Total Protein 7.2 g/dL (6.3-8.2); Triglycerides 97 mg/dL (35-150)
[2023-05-20 14:15] LABS: HEMOLYSIS < 15 (0-50); Iron 94 ug/dL (37-170)
[2023-05-20 14:25] LABS: Percent Iron Saturation 38 % (15-50); Total Iron Binding Capacity 250 ug/dL (265-497); Transferrin 243 mg/dL (206-381)
[2023-05-20 14:41] LABS: Ferritin 19 ng/mL (6-137)
[2023-05-20 14:55] LABS: Vitamin B12 794 pg/mL (239-931)
[2023-05-21 20:46] LABS: Hepatitis B Surface Antigen NEGATIVE s/c (NEGATIVE)
[2023-05-21 21:04] LABS: HIV 1 & 2 Ab/Ag 4th Gen Combo NEGATIVE (NEGATIVE); Hep C Virus Ab w/Reflex Quant NEGATIVE s/c (NEGATIVE)
[2023-06-02 16:01] LABS: HSV1IGG < 0.91
[2023-06-02 16:16] LABS: HSV 2 IGG AB < 0.91
[2023-06-02 16:18] LABS: RPR Screen Non Reactive
== END ==
PROVIDERS: Physician Assistant Medical; PCP Family Medicine; Referring Provider Family Medicine; Visit Provider Family Medicine
DX: Z20.2 Contact with and (suspected) exposure to infections with a predominantly sexual mode of transmission (principal); R79.89 Other specified abnormal findings of blood chemistry; N95.1 Menopausal and female climacteric states; M79.7 Fibromyalgia; R53.82 Chronic fatigue, unspecified; F33.1 Major depressive disorder, recurrent, moderate; F43.10 Post-traumatic stress disorder, unspecified; F51.04 Psychophysiologic insomnia; Z63.8 Other specified problems related to primary support group; Z87.820 Personal history of traumatic brain injury
CPT/HCPCS: 36415; 80053; 80061; 82306; 82607; 82728; 83540; 83550; 86592; 86695; 86696; 86803; 87340; 87389; 87491; 87591; 99215

== ENCOUNTER → 2023-11-28 17:33 | Outpatient (CLI) | payer OTHER, MEDICAID, SELFPAY ==
[2023-11-28 18:48] LABS: Free T3, Triiodothyronine Free 3.33 pg/mL (2.77-5.27); Free T4, Direct Thyroxine 1.12 ng/dL (0.78-2.19)
== END ==
PROVIDERS: PCP Family Medicine; Referring Provider Family Medicine; Visit Provider Family Medicine
DX: R53.83 Other fatigue (principal)
CPT/HCPCS: 36415; 84439; 84443; 84481

== ENCOUNTER → 2024-05-22 15:53 | Outpatient (CLI) | payer OTHER, SELFPAY ==
--- NOTE | 2024-05-22 15:54 | DI.MG.S_ITS ---
BILATERAL DIGITAL SCREENING MAMMOGRAM 3D/2D WITH CAD: 05/22/2024 CLINICAL: Routine screening. Family history of breast cancer. Comparison is made to exams dated: 01/28/2023 mammogram, 09/26/2020 mammogram, and 09/02/2018 mammogram - [facility]. The breasts are heterogeneously dense, which may obscure small masses (category c / 51-75% glandular tissue). Current study was also evaluated with a Computer Aided Detection (CAD) system. There is a new oval focal asymmetry in the right breast at 10 o'clock posterior depth. No other significant masses, calcifications, or other findings are seen in either breast. IMPRESSION: INCOMPLETE: NEED ADDITIONAL IMAGING EVALUATION The new oval focal asymmetry in the right breast is indeterminate. Additional views with possible ultrasound are recommended. Based on the Tyrer Cuzick model (a risk assessment model) the patient's lifetime risk is 14.6% and her 10 year risk is 3.3%. According to the ACR, ACS, and NCCN guidelines, an annual breast MRI exam along with mammogram is recommended if the patient's lifetime risk is 20% or greater. This exam was interpreted at Station ID: [id number]. NOTE: For mammograms, a report in lay terms will be sent to the patient. Approximately 15% of breast malignancies will not be visualized mammographically. In the management of a palpable breast mass, a negative mammogram must not discourage biopsy of a clinically suspicious lesion. Electronically Signed By: Magdiel Merritt M.D. aty/:05/22/2024 20:04:01 copy to: César Mercado letter sent: Additional Imaging Needed ACR BI-RADS Category 0: Incomplete: Need Additional Imaging Evaluation
== END ==
PROVIDERS: PCP Family Medicine; Referring Provider Family Medicine; Visit Provider Family Medicine
DX: Z12.31 Encounter for screening mammogram for malignant neoplasm of breast (principal); Z80.3 Family history of malignant neoplasm of breast; R92.333 Mammographic heterogeneous density, bilateral breasts
CPT/HCPCS: 77063; 77067

== ENCOUNTER → 2024-06-05 08:47 | Outpatient (CLI) | payer OTHER, SELFPAY ==
--- NOTE | 2024-06-05 08:48 | DI.US.S_ITS ---
LIMITED ULTRASOUND OF RIGHT BREAST: 06/05/2024 CLINICAL: Patient returns today to evaluate a focal asymmetry in the right breast. Comparison is made to exams dated: 06/05/2024 mammogram, 05/22/2024 mammogram, 01/28/2023 mammogram, and 09/26/2020 mammogram - [facility]. Real-time ultrasound of the right breast 9-11 o'clock region was performed. Dean scale images of the real-time examination were reviewed. There is a benign 0.9 cm simple cyst in the right breast at 10 o'clock, 9 cm from the nipple. This correlates with mammography findings. IMPRESSION: BENIGN Right breast 0.9 cm simple cyst at 10 o'clock is benign. No mammographic or sonographic evidence of malignancy. A 1 year screening mammogram is recommended. Findings and recommendations were conveyed to the patient during today's evaluation. This exam was interpreted at Station ID: [id number]. Electronically Signed By: Yaneth Toney M.D., Ph.D. eb/:06/05/2024 09:59:10 copy to: GIULIA PANTOJA letter sent: Normal Exam ACR BI-RADS Category 2: Benign
--- NOTE | 2024-06-05 08:48 | DI.MG.S_ITS ---
UNILATERAL RIGHT DIGITAL DIAGNOSTIC MAMMOGRAM 3D/2D WITH ADDITIONAL VIEWS: 06/05/2024 CLINICAL: Additional evaluation requested from prior study. Comparison is made to exams dated: 05/22/2024 mammogram, 01/28/2023 mammogram, and 09/26/2020 mammogram - [facility]. The breasts are heterogeneously dense, which may obscure small masses (category c / 51-75% glandular tissue). There is a 0.8 cm oval mass with a circumscribed margin in the right breast at 10 o'clock posterior depth. This corresponds to finding seen on recent screening mammogram. No other significant masses or calcifications are seen in the breast. IMPRESSION: INCOMPLETE: NEED ADDITIONAL IMAGING EVALUATION The 0.8 cm oval mass in the right breast is indeterminate. An ultrasound is recommended for further evaluation and is scheduled to immediately follow this examination. Based on the Tyrer Cuzick model (a risk assessment model) the patient's lifetime risk is 14.6% and her 10 year risk is 3.3%. According to the ACR, ACS, and NCCN guidelines, an annual breast MRI exam along with mammogram is recommended if the patient's lifetime risk is 20% or greater. This exam was interpreted at Station ID: [id number]. NOTE: For mammograms, a report in lay terms will be sent to the patient. Approximately 15% of breast malignancies will not be visualized mammographically. In the management of a palpable breast mass, a negative mammogram must not discourage biopsy of a clinically suspicious lesion. Electronically Signed By: Yaneth Toney M.D., Ph.D. eb/:06/05/2024 10:09:50 copy to: GIULIA PANTOJA letter sent: Followup Recommended ACR BI-RADS Category 0: Incomplete: Need Additional Imaging Evaluation
== END ==
PROVIDERS: PCP Family Medicine; Referring Provider Family Medicine; Visit Provider Family Medicine
DX: R92.8 Other abnormal and inconclusive findings on diagnostic imaging of breast (principal); N60.01 Solitary cyst of right breast
CPT/HCPCS: 76642; 77065; G0279

== ENCOUNTER → 2024-07-14 09:14 | Outpatient (CLI) | payer OTHER, SELFPAY ==
[2024-07-14 11:31] LABS: HIV 1 & 2 Ab/Ag 4th Gen Combo NEGATIVE (NEGATIVE)
[2024-07-15 04:26] LABS: HBsAg Screen Negative (Negative); Hepatitis A Antibody IgM Negative (Negative); Hepatitis B Core Antibody IgM Negative (Negative); Hepatitis C Antibody Non Reactive (Non Reactive)
[2024-07-15 05:36] LABS: RPR Screen Non Reactive (Non Reactive)
[2024-07-15 14:08] LABS: Candida species Negative (Negative); Gardnerella vaginalis Positive (Negative); Trichomoas vaginalis Negative (Negative)
== END ==
PROVIDERS: PCP Family Medicine; Referring Provider Student in an Organized Health Care Education/Training Program; Visit Provider Student in an Organized Health Care Education/Training Program
DX: Z11.3 Encounter for screening for infections with a predominantly sexual mode of transmission (principal)
CPT/HCPCS: 36415; 80074; 86592; 87389; 87480; 87491; 87510; 87563; 87591; 87660

== ENCOUNTER → 2024-10-02 15:27 | Outpatient (CLI) | payer OTHER, SELFPAY ==
--- NOTE | 2024-10-02 15:28 | DI.RAD.S_ITS ---
PROCEDURE: XR ANKLE RT MIN 3V INDICATIONS: Right ankle sprain lateral TECHNIQUE: 3 views of the ankle were acquired. COMPARISON: None. FINDINGS: Bones: No fractures or dislocations. Ankle mortise is normally aligned. No suspicious bony lesions. Soft tissues: No tibiotalar joint effusion. Achilles tendon appears normal. IMPRESSION: No acute ankle fracture or dislocation. Ankle mortise is congruent. Dictated by: Jhoan Lopes M.D. on 10/02/2024 at 16:36 Approved by: Jhoan Lopes M.D. on 10/02/2024 at 16:37
== END ==
PROVIDERS: PCP Family Medicine; Referring Provider Chiropractor; Visit Provider Chiropractor
DX: S93.401A Sprain of unspecified ligament of right ankle, initial encounter (principal); X58.XXXA Exposure to other specified factors, initial encounter
CPT/HCPCS: 73610

== ENCOUNTER → 2024-11-20 12:48 | Outpatient (CLI) | payer OTHER, SELFPAY ==
--- NOTE | 2024-11-20 12:50 | DI.RAD.S_ITS ---
PROCEDURE: XR DEXA AXIAL SKELETON INDICATIONS: FHx osteopenia COMPARISON: None. FINDINGS: Lumbar Spine: Bone mineral density 1.172 g/cm2, Z score 1.9. Left Femoral Neck: Bone mineral density 0.863 g/cm2, Z score 0.9. Left Hip: Bone mineral density 0.978 g/cm2, Z score 0.8. Fracture Risk Calculation (when applicable): 10-year fracture risk of a major osteoporotic fracture 3.5 percent and of a hip fracture 0.1 percent. (T score greater or equal to -1.0 to: NORMAL) (T score from -1.1 to -2.4: OSTEOPENIA) (T score less than or equal to -2.5: OSTEOPOROSIS) IMPRESSION: Normal--- recommend repeat DEXA as clinically indicated. Follow-up guidelines as follows: Osteoporosis: Consider a repeat DEXA and Vertebral Fracture Assessment (VFA) exam in 2 years or sooner if medically necessary, to reassess this patient's status. Osteopenia: Consider a repeat DEXA in 2-3 years to reassess this patient's status, or if there is a new clinical indication. Normal: Consider a repeat DEXA in 5 years or sooner, or if there is a new clinical indication. All treatment decisions require clinical judgment and consideration of individual patient factors, including patient preferences, comorbidities, previous drug use, risk factors not captured in the FRAX model (e.g., frailty, falls, vitamin D deficiency, increased bone turnover, interval significant decline in bone density ) and possible under- or over-estimation of fracture risk by FRAX. In addition, the NOF Guide recommends that FDA-approved medical therapies be considered in postmenopausal women and men age >= 50 years with a: * Hip or vertebral (clinical or morphometric) fracture * T-score of <=-2.5 at the spine or hip * Ten-year fracture probability by FRAX of >= 3% for hip fracture or >=20% for major osteoporotic fracture. Dictated by: Hamzah Gaitan M.D. on 11/20/2024 at 19:36 Approved by: Hamzah Gaitan M.D. on 11/20/2024 at 19:38
== END ==
PROVIDERS: PCP Family Medicine; Referring Provider Family Medicine; Visit Provider Family Medicine
DX: Z13.820 Encounter for screening for osteoporosis (principal); Z82.69 Family history of other diseases of the musculoskeletal system and connective tissue
CPT/HCPCS: 77080

== ENCOUNTER → 2024-11-23 11:31 | Outpatient (CLI) | payer OTHER, SELFPAY ==
[2024-11-23 12:39] LABS: HEMOLYSIS < 15 (0-50); Iron 155 ug/dL (37-170)
[2024-11-23 12:44] LABS: Cholesterol 248 mg/dL (140-199); HDL Cholesterol 93 mg/dL (40-60); Triglycerides 93 mg/dL (35-150)
[2024-11-23 12:54] LABS: Percent Iron Saturation 56 % (15-50); Total Iron Binding Capacity 276 ug/dL (265-497); Transferrin 239 mg/dL (206-381)
[2024-11-23 13:15] LABS: TSH w/ Reflex to FT4 0.61 uIU/mL (0.47-4.68)
[2024-11-23 13:17] LABS: Ferritin 46 ng/mL (6-137)
== END ==
PROVIDERS: PCP Family Medicine; Referring Provider Family Medicine; Visit Provider Family Medicine
DX: F51.02 Adjustment insomnia (principal); N95.1 Menopausal and female climacteric states; R53.82 Chronic fatigue, unspecified; E78.5 Hyperlipidemia, unspecified; E03.9 Hypothyroidism, unspecified
CPT/HCPCS: 36415; 80061; 82627; 82728; 83540; 83550; 84403; 84443

== ENCOUNTER → 2025-02-11 16:47 | Outpatient (CLI) | payer OTHER, SELFPAY ==
--- NOTE | 2025-02-11 16:49 | DI.MRI.S_ITS ---
PROCEDURE: MR ANKLE RT WO CON INDICATIONS: right ankle instability TECHNIQUE: Noncontrast sagittal T1 spin echo and T2 fast spin echo with fat saturation, axial proton density fast spin echo and T2 fast spin echo with fat saturation, coronal T1 spin echo and T2 fast spin echo with fat saturation through the ankle/hindfoot. COMPARISON: [facility], CR, XR ANKLE RT MIN 3V, 10/02/2024, 15:23. FINDINGS: Quality: Adequate Extensor tendons: Unremarkable Medial ankle tendons: Posterior tibialis tendon: Partial tear at the navicular insertion Flexor digitorum longus tendon: Intact. Flexor hallucis longus tendon: Intact. Medial ankle ligaments: Deltoid ligament, superficial and deep: Intact Spring ligaments: Intact. Lateral ankle tendons: Peroneus brevis tendon: Intact. Peroneus longus tendon: Intact. Lateral ankle ligaments: Tibiofibular ligaments: Intact Anterior talofibular ligament: Intact. Posterior talofibular ligament: Intact. Calcaneofibular ligament: Intact. Achilles tendon: Intact. Plantar fascia: Unremarkable. Sinus tarsi: Unremarkable. Tarsal tunnel: Unremarkable. Cartilage: No focal defect identified. Bones: No fracture. Joints: No effusion. Other: None. IMPRESSION: Small partial tear posterior tibialis tendon. Dictated by: Earnest Conte M.D. on 02/12/2025 at 8:37 Approved by: Earnest Conte M.D. on 02/12/2025 at 8:41
== END ==
PROVIDERS: PCP Family Medicine; Referring Provider Orthopaedic Surgery; Visit Provider Orthopaedic Surgery
DX: S96.811A Strain of other specified muscles and tendons at ankle and foot level, right foot, initial encounter (principal); M25.371 Other instability, right ankle
CPT/HCPCS: 73721

== ENCOUNTER → 2025-04-28 13:58 | Outpatient (CLI) | payer OTHER, SELFPAY ==
[2025-04-28 17:44] LABS: Appearance Urine UA CLEAR; Bilirubin Urine UA NEGATIVE (NEGATIVE); Color Urine UA YELLOW; Glucose Urine UA NEGATIVE (Negative); Ketones Urine UA NEGATIVE (NEGATIVE); Leukocyte Esterase Urine UA NEGATIVE (NEGATIVE); Nitrite Urine UA NEGATIVE (Negative); Occult Blood Urine UA NEGATIVE (Negative); Protein Urine UA NEGATIVE (Negative); Specific Gravity Urine UA >=1.030 (1.000-1.035); Urobilinogen Urine UA 0.2 E.U./dL (0.2)
[2025-04-28 17:46] LABS: pH Urine UA 5.5 (4.5-8.0)
[2025-04-28 17:50] LABS: Culture Indicated Urine Cult Not Indicated
== END ==
LOC: LAB 14:01
PROVIDERS: PCP Family Medicine; Visit Provider Family Medicine
DX: R30.0 Dysuria (principal); N76.0 Acute vaginitis; N39.0 Urinary tract infection, site not specified
CPT/HCPCS: 81001; 87210